=== PATIENT | female | born 1945 | race Caucasian/White ===

== ENCOUNTER 2020-05-03 07:47 | Outpatient (REF) | payer MEDICARE, OTHER, SELFPAY ==
[2020-05-03 11:51] LABS: Cholesterol 217 mg/dL; HDL Cholesterol 71 mg/dL; LDL Cholesterol Calculated 125 mg/dl; Triglycerides 107 mg/dL
== END 2020-05-03 07:48 | disposition home or self-care (01) ==
LOC: HO.HMGCLDS 07:47
PROVIDERS: PCP Nurse Practitioner Family; Visit Provider Nurse Practitioner Family
DX: E78.5 Hyperlipidemia, unspecified (principal)
CPT/HCPCS: 36415; 80061

== ENCOUNTER 2020-05-13 09:40 | Outpatient (REF) | payer MEDICARE, OTHER, SELFPAY ==
[2020-05-13 12:21] LABS: TSH reflex Free T4 0.12 mIU/mL (0.32-4.0)
[2020-05-13 12:57] LABS: Free T4 (Free Thyroxine) 1.66 ng/dL (0.71-1.85)
== END 2020-05-13 09:41 | disposition home or self-care (01) ==
LOC: HO.HMGCLDS 09:40
PROVIDERS: PCP Nurse Practitioner Family; Visit Provider Nurse Practitioner Family
DX: E03.9 Hypothyroidism, unspecified (principal)
CPT/HCPCS: 84439; 84443

== ENCOUNTER 2020-06-20 14:00 | Outpatient (REF) | payer MEDICARE, OTHER, SELFPAY ==
[2020-06-20 17:30] LABS: TSH reflex Free T4 0.18 mIU/mL (0.32-4.0)
[2020-06-20 18:12] LABS: Free T4 (Free Thyroxine) 1.39 ng/dL (0.71-1.85)
== END 2020-06-20 14:01 | disposition home or self-care (01) ==
LOC: HO.HMGCLDS 14:00
PROVIDERS: PCP Nurse Practitioner Family; Visit Provider Nurse Practitioner Family
DX: E03.9 Hypothyroidism, unspecified (principal)
CPT/HCPCS: 84439; 84443

== ENCOUNTER 2020-11-16 09:59 | Outpatient (REF) | payer MEDICARE, OTHER, SELFPAY ==
--- NOTE | ~2020-11-16 | US_ITS ---
EXAMINATION: US EXTRACRANIAL CAROTID DUPLEX, BILATERAL CLINICAL INFORMATION: This is a 75-year-old female with history of carotid stenosis. COMPARISON: None TECHNIQUE: Real-time ultrasound and Doppler techniques (integrating B-mode 2-D vascular images, Doppler spectral analysis and color-flow Doppler imaging) were utilized to interrogate the extracranial carotid arteries, the vertebral arteries and proximal subclavian arteries bilaterally. The degree of stenosis is determined by criteria similar to NASCET. FINDINGS: Right Side: 1. There is minimal atherosclerotic plaque seen in the bifurcation/proximal ICA region. 2. The common carotid artery PSV proximally is 90 cm/s and distally 53 cm/s. 3. The proximal internal carotid artery velocities are 64 cm/s systolic and 70 cm/s diastolic. 4. The proximal external carotid artery PSV is 76 cm/s. 5. The vertebral artery shows antegrade flow. 6. The subclavian artery waveforms are normal. Left Side: 1. There is normal atherosclerotic plaque seen in the bifurcation/proximal ICA region. 2. The common carotid artery PSV proximally is 92 cm/s and distally 52 cm/s. 3. The proximal internal carotid artery velocities are 56 cm/s systolic and 15 cm/s diastolic. 4. The proximal external carotid artery PSV is 73 cm/s. 5. The vertebral artery shows antegrade flow. 6. The subclavian artery waveforms are normal. US/US carotid duplex BI IMPRESSION: 1. RIGHT: Minimal, non-hemodynamically significant stenosis of the proximal right internal carotid artery corresponding to a 0-49% stenosis by velocity criteria. 2. LEFT: Minimal, non-hemodynamically significant stenosis of the proximal left internal carotid artery corresponding to a 0-49% stenosis by velocity criteria.
== END 2020-11-16 10:00 | disposition home or self-care (01) ==
LOC: HO.HMGCX 09:59
PROVIDERS: PCP Nurse Practitioner Family; Visit Provider Nurse Practitioner Family
DX: Z86.79 Personal history of other diseases of the circulatory system (principal)
CPT/HCPCS: 93880

== ENCOUNTER 2020-12-14 07:48 | Outpatient (REF) | payer MEDICARE, OTHER, SELFPAY ==
[2020-12-14 11:13] LABS: MANUAL DIFF FLAG NO
[2020-12-14 11:49] LABS: Basophils Percent Auto 0.9 % (0-2); Eosinophils Absolute Auto 0.2 X10*3/uL (0.0-0.4); Eosinophils Percent Auto 4.7 % (0-4); Hematocrit 40.1 % (37-47); Imm Gran Abs Auto 0.01 X10*3/uL (0.00-0.03); Imm Gran Pct Auto 0.2 % (0.0-0.4); Lymphocytes Absolute Auto 1.1 X10*3/uL (1.2-4.9); Lymphocytes Percent Auto 25.2 % (20-40); Mean Corpuscular HGB Conc 32.4 g/dl (31.0-35.0); Mean Corpuscular Hemoglobin 30.7 pg (27.0-33.0); Mean Corpuscular Volume 94.8 fL (80-98); Mean Platelet Volume 9.8 fL (9.4-12.3); Monocytes Absolute Auto 0.5 X10*3/uL (0.1-1.2); Monocytes Percent Auto 11.5 % (2-11); Neutrophils Absolute Auto 2.6 X10*3/uL (2.0-8.3); Neutrophils Percent Auto 57.5 % (45-73); Platelet Count 243 X10*3/uL (160-400); Red Blood Count 4.23 X10*6/uL (4.20-5.50); Red Cell Distribution Width 12.6 % (11.0-16.0); White Blood Count 4.5 X10*3/uL (4.8-10.8)
[2020-12-14 12:48] LABS: Alanine Aminotransferase 19 U/L (0-31); Alkaline Phosphatase 46 U/L (39-117); Anion Gap 11 (12-20); Aspartate Amino Transferase 21 U/L (5-31); Bilirubin Total 0.5 mg/dL (0.0-1.0); Blood Urea Nitrogen 11 mg/dL (9-16); Calcium 8.8 mg/dL (8.4-10.2); Carbon Dioxide 31 mmol/L (22-29); Chloride 105 mmol/L (96-108); Cholesterol 202 mg/dL; Estimated Glomerular Filt Rate > 60; Glucose Fasting 101 mg/dL (60-99); HDL Cholesterol 76 mg/dL; LDL Cholesterol Calculated 116 mg/dl; Potassium 4.1 mmol/L (3.3-5.1); Sodium 143 mmol/L (135-145); Total Protein 6.4 g/dL (6.5-8.0); Triglycerides 54 mg/dL
[2020-12-14 13:10] LABS: Folate 16.3 ng/mL (> or = 4.0); Vitamin B12 1417 pg/mL (200-900)
[2020-12-14 13:13] LABS: TSH reflex Free T4 1.16 uIU/mL (0.32-4.0); Vitamin D 25-OH Total 20.8 ng/mL (>30)
== END 2020-12-14 07:49 | disposition home or self-care (01) ==
LOC: HO.HMGCLDS 07:48
PROVIDERS: PCP Nurse Practitioner Family; Visit Provider Nurse Practitioner Family
DX: E53.8 Deficiency of other specified B group vitamins (principal); E03.9 Hypothyroidism, unspecified; I10 Essential (primary) hypertension; Z78.0 Asymptomatic menopausal state
CPT/HCPCS: 36415; 80053; 80061; 82306; 82607; 82746; 84443; 85025

== ENCOUNTER → 2021-03-08 09:46 | Outpatient (REF) | payer MEDICARE, OTHER, SELFPAY ==
--- NOTE | ~2021-03-08 | NM_ITS ---
EXERCISE MYOCARDIAL PERFUSION STUDY INDICATION: Family history of coronary disease, hypertension, hyperlipidemia, assess for ischemia TECHNIQUE: The patient was brought in for an exercise perfusion study on 03/08/2021. Patient performed exercise as per Felix protocol and was injected 25 mCi of sestamibi once target heart rate was achieved. Images were obtained using the SPECT gamma camera interlaced with the gating device. Images were obtained in supine position. Resting perfusion study was performed on 03/09/2021. Patient was administered 25 mCi of sestamibi intravenously at rest. Images were then obtained in supine position. Total DLP 79mGy-cm. Images were processed with the software and compared side to side in short axis, horizontal long axis and vertical long axis views. FINDINGS: Raw images were reviewed. The stress perfusion study showed no significant perfusion abnormality. Both uncorrected as well as CT attenuation corrected images were reviewed. The gated study shows normal LV systolic function with calculated LVEF of 64%. LV cavity is normal in size. The gated study shows normal wall thickening and contraction of segments. Resting study shows mildly diminished tracer uptake in the apical part of anterior wall but otherwise unremarkable. Gating at rest reveals normal wall motion with ejection fraction at 63%. The findings are consistent with no definite reversible or fixed perfusion defects. NM/NM cardiolite stress test IMPRESSION: 1. Myocardial perfusion imaging study shows normal myocardial perfusion. 2. Gated LVEF is 64% during stress and 63% during rest. 3. Transient ischemic dilatation not present. EKG component of the test reported separately.
--- NOTE | 2021-03-08 10:00 | CA_ITS ---
Acquisition Time: 2021-03-08 10:10:54 Total Exercise Time: 00:05:00 Test Indications: FAMILY HX CAD, HTN, HYPERLIPIDEM Medications: SEE CHART Protocol: ERENDIRA Max HR: 144 BPM 99% of Pred: 145 BPM Max BP: 178/068 mmHG Max Work Load: 7.0 METS Exercise stress test with exercise 5 min of Erendira protocol, without anginal symptoms, with isolated PACs, with normotensive response to exercise, without EKG changes meeting criteria for ischemia. Nuclear images pending. Test reviewed with Dr Jade. Referred By: Atul Sanz Overread By: PARVIZ FRENCH
== END ==
LOC: HO.CARD 09:46
PROVIDERS: Visit Provider Nurse Practitioner Family
DX: E78.5 Hyperlipidemia, unspecified (principal); I10 Essential (primary) hypertension; Z82.49 Family history of ischemic heart disease and other diseases of the circulatory system
CPT/HCPCS: 78452; 93017; A9500

== ENCOUNTER 2021-05-15 06:04 | Day surgery (SDC) | payer MEDICARE, OTHER, SELFPAY ==
[2021-05-03 13:46] LABS: MANUAL DIFF FLAG NO
[2021-05-03 13:48] LABS: Basophils Percent Auto 0.7 % (0-2); Eosinophils Absolute Auto 0.2 X10*3/uL (0.0-0.4); Eosinophils Percent Auto 2.8 % (0-4); Hematocrit 40.6 % (37-47); Hemoglobin 13.7 g/dl (12.0-16.0); Imm Gran Abs Auto 0.01 X10*3/uL (0.00-0.03); Imm Gran Pct Auto 0.2 % (0.0-0.4); Lymphocytes Absolute Auto 1.7 X10*3/uL (1.2-4.9); Lymphocytes Percent Auto 27.1 % (20-40); Mean Corpuscular HGB Conc 33.7 g/dl (31.0-35.0); Mean Corpuscular Hemoglobin 31.4 pg (27.0-33.0); Mean Corpuscular Volume 93.1 fL (80-98); Mean Platelet Volume 9.5 fL (9.4-12.3); Monocytes Absolute Auto 0.6 X10*3/uL (0.1-1.2); Monocytes Percent Auto 9.6 % (2-11); Neutrophils Absolute Auto 3.7 X10*3/uL (2.0-8.3); Neutrophils Percent Auto 59.6 % (45-73); Platelet Count 271 X10*3/uL (160-400); Red Blood Count 4.36 X10*6/uL (4.20-5.50); Red Cell Distribution Width 12.3 % (11.0-16.0); White Blood Count 6.1 X10*3/uL (4.8-10.8)
[2021-05-03 13:54] LABS: Prothrombin Time 11.6 SEC (9.9-13.0)
[2021-05-03 14:11] LABS: Alanine Aminotransferase 16 U/L (0-31); Albumin Level 4.3 g/dL (3.5-5.0); Alkaline Phosphatase 52 U/L (39-117); Anion Gap 12 (12-20); Aspartate Amino Transferase 19 U/L (5-31); Bilirubin Total 0.4 mg/dL (0.0-1.0); Blood Urea Nitrogen 12 mg/dL (9-16); Calcium 9.8 mg/dL (8.4-10.2); Carbon Dioxide 29 mmol/L (22-29); Chloride 104 mmol/L (96-108); Cholesterol 259 mg/dL; Estimated Glomerular Filt Rate > 60; Glucose Fasting 77 mg/dL (60-99); HDL Cholesterol 75 mg/dL; LDL Cholesterol Calculated 156 mg/dl; Potassium 4.6 mmol/L (3.3-5.1); Sodium 140 mmol/L (135-145); Total Protein 6.9 g/dL (6.5-8.0); Triglycerides 141 mg/dL
[2021-05-03 14:31] LABS: Thyroid Stimulating Hormone 1.46 uIU/mL (0.32-4.0)
[2021-05-10 09:10] VITALS: BMI 21.7
--- NOTE | 2021-05-10 10:49 | MHC.SHP ---
Pre-Procedural Eval Section A Date of Service: 05/10/21 The patient is an INPATIENT: No Changes since office visit: No Cold of Flu in the past 2 weeks, No New Medical Problems, No Changes in Medication and No Patient answered all questions The History & Physical has been completed within 30 days and I have reviewed it.: Yes Section B Chief Complaint: Cataract Left Eye Allergies: Allergies Allergy/AdvReac Type Severity Reaction Status Date / Time No Known Allergies Allergy Verified 05/03/21 12:18 Plan Diagnosis/Plan: Unchanged I have reviewed the history and physical and performed a pertinent physical examination on my patient. No changes have occurred unless specified.
--- NOTE | 2021-05-12 09:21 | P.CONAN_ITS ---
Documented by User: Farrah Ortiz NP 05/12/21 09:26 HPI - Anesthesia Eval Consult details Narrative: 75yo F for Left Cataract Multifocal with IOL Insertion PCP cleared No previous cataract PMFSH Active Problems Active Problems: All Active Problems (Updated 05/10/21 @ 09:16 by Carmen Matta RN) Postmenopausal (Acute) Hx of carotid stenosis (Acute) B12 deficiency (Acute) Family history of cardiac disorder (Acute) Pre-op evaluation (Acute) Dyslipidemia (Acute) HTN (hypertension) (Acute) Hypothyroid (Acute) Past Medical History Medical History (Updated 05/10/21 @ 09:16 by Carmen Matta RN) Anxiety Arthritis COVID-19 vaccine series completed DDD (degenerative disc disease) 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 Surgical History Surgical History (Updated 05/10/21 @ 09:16 by Carmen Matta RN) Breast cancer History of hammer toe correction Hx of blepharoplasty Social History [facility] Are you a primary residential caregiver to a significant other at home: No Do you presently have visiting nurse or other home services: No Alcohol intake: current Patient Tobacco Use Status: Former Tobacco user Quit Date: age 35 Tobacco use type: Cigarette Use of substances other than those prescribed or required for medical reasons: No Have you been hit, kicked, punched, or otherwise hurt by someone within the past year? If so, by whom?: No Advance Directives Information Provided: Yes (patient will bring copy of HCP DOS) Advance Directives on File: No Recently lost weight without trying: No Eating poorly because of decreased appetite: No Nutrition Risks: No Nutritional Risk Current occupational status: retired [employer] Allergies Allergy/AdvReac Type Severity Reaction Status Date / Time No Known Allergies Allergy Verified 05/03/21 12:18 Home Medications Medication Instructions Recorded Confirmed Last Taken Type alendronate 70 mg tablet 70 mg PO QWEEK 05/11/20 05/10/21 Unknown History multivitamin 1 tab PO DAILY 11/03/20 05/10/21 Unknown History buspirone 7.5 mg tablet 3.75 mg PO DAILY PRN tab 02/20/21 05/10/21 Unknown History biotin 5 mg capsule 5 mg PO .every other day cap 05/03/21 05/10/21 Unknown History Exam Exam Date and Time: May 12, [id number] Height,Weight and Vital Signs: Height 5 ft 2 in Weight 53.977 kg Pertinent Lab Results Pertinent Lab Results: Laboratory Tests 05/03/21 05/03/21 05/03/21 12:55 12:55 12:55 WBC 6.1 RBC 4.36 Hgb 13.7 Hct 40.6 MCV 93.1 MCH 31.4 MCHC 33.7 RDW 12.3 Plt Count 271 MPV 9.5 Immature Gran % (Auto) 0.2 Neut % (Auto) 59.6 Lymph % (Auto) 27.1 [place] % (Auto) 9.6 Eos % (Auto) 2.8 Baso % (Auto) 0.7 Lymph # (Auto) 1.7 [place] # (Auto) 0.6 Eos # (Auto) 0.2 Baso # (Auto) 0.0 Abs Immat Gran (auto) 0.01 Absolute Neuts (auto) 3.7 Absolute Nucleated RBC 0.000 Nucleated RBC % (auto) 0.0 PT 11.6 INR 1.0 Sodium 140 Potassium 4.6 Chloride 104 Carbon Dioxide 29 Anion Gap 12 BUN 12 Creatinine 0.80 Estim Creat Clear Calc TNP Estimated GFR > 60 Random Glucose TNP Fasting Glucose 77 Calcium 9.8 D Total Bilirubin 0.4 AST 19 ALT 16 Alkaline Phosphatase 52 Total Protein 6.9 Albumin 4.3 Triglycerides 141 Cholesterol 259 D LDL Cholesterol, Calc 156 HDL Cholesterol 75 TSH 1.46 05/03/21 12:55 WBC RBC Hgb Hct MCV MCH MCHC RDW Plt Count MPV Immature Gran % (Auto) Neut % (Auto) Lymph % (Auto) [place] % (Auto) Eos % (Auto) Baso % (Auto) Lymph # (Auto) [place] # (Auto) Eos # (Auto) Baso # (Auto) Abs Immat Gran (auto) Absolute Neuts (auto) Absolute Nucleated RBC Nucleated RBC % (auto) PT INR Sodium Potassium Chloride Carbon Dioxide Anion Gap BUN Creatinine Estim Creat Clear Calc Estimated GFR Random Glucose Fasting Glucose Calcium Total Bilirubin AST ALT Alkaline Phosphatase Total Protein Albumin Triglycerides Cholesterol LDL Cholesterol, Calc HDL Cholesterol TSH 1.50 Narrative Narrative: EKG 04/2021 NSR @72 NM cardiolite stress test 02/2021 IMPRESSION: ? 1.? Myocardial perfusion imaging study shows normal myocardial perfusion. 2.? Gated LVEF is 64% during stress and 63% during rest. 3. Transient ischemic dilatation not present. ? EKG component of the test reported separately. (Neg for ischemia) US carotid duplex BI 10/2020 IMPRESSION: 1. RIGHT: Minimal, non-hemodynamically significant stenosis of the proximal right internal carotid artery corresponding to a 0-49% stenosis by velocity criteria. ? 2. LEFT: Minimal, non-hemodynamically significant stenosis of the proximal left internal carotid artery corresponding to a 0-49% stenosis by velocity criteria. 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 Family history of problems with anesthesia: No Surgical History Surgical History (Updated 05/10/21 @ 09:16 by Carmen Matta RN) Breast cancer History of hammer toe correction Hx of blepharoplasty History of Problems with Anesthesia: No Social History Social History Housing: Condominium Are you a primary residential caregiver to a significant other at home: No Do you presently have visiting nurse or other home services: No Alcohol intake: current Patient Tobacco Use Status: Former Tobacco user Quit Date: age 35 Tobacco use type: Cigarette Use of substances other than those prescribed or required for medical reasons: No Have you been hit, kicked, punched, or otherwise hurt by someone within the past year? If so, by whom?: No Advance Directives Information Provided: Yes (patient will bring copy of HCP DOS) Advance Directives on File: No Recently lost weight without trying: No Eating poorly because of decreased appetite: No Nutrition Risks: No Nutritional Risk Current occupational status: retired [employer] Allergies Allergy/AdvReac Type Severity Reaction Status Date / Time No Known Allergies Allergy Verified 05/03/21 12:18 Home Medications Medication Instructions Recorded Confirmed Last Taken Type alendronate 70 mg tablet 70 mg PO QWEEK 05/11/20 05/10/21 Unknown History multivitamin 1 tab PO DAILY 11/03/20 05/10/21 Unknown History buspirone 7.5 mg tablet 3.75 mg PO DAILY PRN tab 02/20/21 05/10/21 Unknown History biotin 5 mg capsule 5 mg PO .every other day cap 05/03/21 05/10/21 Unknown History Exam Airway Mallampati Class: II TM Dist: >3cm Neck ROM: Full Loose/Missing/Broken Teeth: No (full mouth of implants) Heart: [id number] Lungs: cta b/l Assessment and Plan Assessment Anesthesia Assessment: Anesthesia Plan Discussed Final Anesthetic Review Family History of Problems with Anesthesia: No History of Problems with Anesthesia: No NPO: Yes ASA Class: III Final Preanesthetic Review: No Changes in Pt Med Stat, Meds/Allgs Chart Reviewed, Consent Obtained/Reviewed and Anes Risks/Benef Reviewed Patient Risk: Intermediate Procedure Risk: Low Assessment/Block/Sedation in SS: Assess/Block/Sedation-SS Anesthetic Plan Anesthetic Plan: MAC: and Agree w/ Assess. and Plan Disposition: Standard PACU
[2021-05-15 06:23] VITALS: BP 168/91; PULSE 80; RESP 18; TEMP 36.3; O2SAT 97
[2021-05-15] MEDS: Tetracaine HCl/PF 0.5% Oph Sol 4 ML DROPS 1 DROP EYE-LEFT (06:28)
[2021-05-15] MEDS: Tropicamide 1 % Ophth Sol 3 ML BTL 1 DROP EYE-LEFT ×3 (06:29→06:35)
[2021-05-15] MEDS: Phenylephrine HCL 2.5% Oph SoL 2 ML BOTTLE 1 DROP EYE-LEFT ×3 (06:31→06:37)
[2021-05-15] MEDS: Lactated Ringers 500 ML 50 ML IV (06:46)
--- NOTE | 2021-05-15 07:23 | HO.PNOPHT ---
Ophthalmology Procedure Procedure Date of Service: 05/15/21 Ophthalmology Viscoelastic: Healon Duet Dual Pack Pro Ophthalmology Lenses: TECNIS [id number] (23) Procedure Notes: PREOPERATIVE DIAGNOSIS: Decreased visual acuity left eye secondary to cataract POSTOPERATIVE DIAGNOSIS: Same PROCEDURE: Left cataract extraction with toric multifocal intraocular lens insertion axis 180 SURGEON: Simone Lu M.D. ANESTHESIA: Topical/MAC ESTIMATED BLOOD LOSS: None COMPLICATIONS: None After obtaining informed consent, the patient was brought to the operation room suite and placed in the supine position. After adequate sedation per anesthesia, topical drops of Tetracaine were given to the left eye. The eye was then prepped and draped in the usual sterile fashion. The operating room microscope was then positioned over the operative eye and a lid speculum placed. A paracentesis was created. Viscoelastic was then instilled into the anterior chamber. A three plane incision was then created temporally, utilizing a 2.85 mm keratome. Capsulotomy forceps were then utilized to create a circular tear capsulotomy. Hydrodissection and hydrodelineation were carried out until adequate mobilization of the nucleus occurred. Phacoemulsification was then utilized to remove the dense central nucleus followed by removal of the cortical material utilizing the automated aspiration irrigation unit. Viscoelastic was instilled into the posterior capsular bag followed by placement of a toric multifocal posterior chamber intraocular lens axis 180 without difficulty. The residual Viscoelastic was then removed utilizing the automated IA machine. The wound was check and found to be watertight. The patient tolerated the procedure well and the lid speculum was removed. Intracameral injection of Vigamox 0.1 mL followed by a subtenon injection of Kenalog-40 0.2 mL were administered. The patient will be seen in the a.m.
[2021-05-15 07:58] VITALS: BP 119/63; PULSE 62; RESP 16; TEMP 36.6; O2SAT 96
== END 2021-05-15 08:08 | disposition home or self-care (01) ==
PROVIDERS: PCP Nurse Practitioner Family; Visit Provider Ophthalmology
PROC: (CPT 66984; principal; 2021-05-15 07:30)
DX: H25.12 Age-related nuclear cataract, left eye (principal); H54.7 Unspecified visual loss; E03.9 Hypothyroidism, unspecified; I10 Essential (primary) hypertension; E78.5 Hyperlipidemia, unspecified; F41.1 Generalized anxiety disorder; Z85.3 Personal history of malignant neoplasm of breast; Z79.899 Other long term (current) drug therapy; Z87.891 Personal history of nicotine dependence
CPT/HCPCS: 66984; 36415; 80053; 80061; 84443; 85025; 85610; J2250; J2405; J3010; J3300; V2788

== ENCOUNTER 2021-08-23 08:14 | Outpatient (REF) | payer MEDICARE, OTHER, SELFPAY ==
[2021-08-23 12:01] LABS: Alanine Aminotransferase 17 U/L (0-31); Alkaline Phosphatase 42 U/L (39-117); Anion Gap 11 (12-20); Aspartate Amino Transferase 17 U/L (5-31); Bilirubin Total 0.7 mg/dL (0.0-1.0); Blood Urea Nitrogen 21 mg/dL (9-16); Calcium 9.7 mg/dL (8.4-10.2); Carbon Dioxide 30 mmol/L (22-29); Chloride 105 mmol/L (96-108); Cholesterol 265 mg/dL; Estimated Glomerular Filt Rate > 60; Glucose Fasting 103 mg/dL (60-99); HDL Cholesterol 73 mg/dL; LDL Cholesterol Calculated 166 mg/dl; Magnesium 2.2 mg/dL (1.6-2.6); Potassium 4.8 mmol/L (3.3-5.1); Sodium 141 mmol/L (135-145); Total Protein 6.7 g/dL (6.5-8.0); Triglycerides 132 mg/dL
[2021-08-23 12:10] LABS: TSH reflex Free T4 1.71 uIU/mL (0.32-4.0)
== END 2021-08-23 08:15 | disposition home or self-care (01) ==
LOC: HO.HMGCLDS 08:14
PROVIDERS: PCP Nurse Practitioner Family; Visit Provider Nurse Practitioner Family
DX: E78.5 Hyperlipidemia, unspecified (principal); I10 Essential (primary) hypertension
CPT/HCPCS: 36415; 80053; 80061; 83735; 84443

== ENCOUNTER 2021-10-24 07:57 | Outpatient (REF) | payer MEDICARE, OTHER, SELFPAY ==
[2021-10-24 11:57] LABS: Cholesterol 210 mg/dL; HDL Cholesterol 59 mg/dL; LDL Cholesterol Calculated 131 mg/dl; Triglycerides 100 mg/dL
== END 2021-10-24 07:58 | disposition home or self-care (01) ==
LOC: HO.HMGCLDS 07:57
PROVIDERS: PCP Nurse Practitioner Family; Visit Provider Nurse Practitioner Family
DX: E78.5 Hyperlipidemia, unspecified (principal)
CPT/HCPCS: 36415; 80061

== ENCOUNTER 2021-10-28 13:14 | Outpatient (REF) | payer MEDICARE, OTHER, SELFPAY ==
--- NOTE | ~2021-10-28 | XR_ITS ---
EXAMINATION: XR CHEST CLINICAL INFORMATION: Acute bronchitis COMPARISON: 10/22/2016 TECHNIQUE: 2 views of the chest were obtained. FINDINGS: Peribronchial thickening. Minor linear density consistent scarring right midlung zone. Emphysematous changes suspected. No significant abnormality is noted involving the heart, lungs, mediastinum, bony thorax or soft tissues. XR/XR chest 2V IMPRESSION: Findings of nonspecific bronchitis. No focal infiltrate.
== END 2021-10-28 13:15 | disposition home or self-care (01) ==
LOC: HO.HMGCX 13:14
PROVIDERS: Visit Provider Internal Medicine
DX: J20.9 Acute bronchitis, unspecified (principal)
CPT/HCPCS: 71046

== ENCOUNTER 2022-01-30 10:55 | Outpatient (REF) | payer MEDICARE, OTHER, SELFPAY ==
[2022-01-30 13:56] LABS: MANUAL DIFF FLAG NO
[2022-01-30 14:21] LABS: Basophils Percent Auto 0.8 % (0-2); Eosinophils Absolute Auto 0.2 X10*3/uL (0.0-0.4); Hematocrit 41.7 % (37.0-47.0); Hemoglobin 13.7 g/dl (12.0-16.0); Imm Gran Abs Auto 0.01 X10*3/uL (0.00-0.03); Imm Gran Pct Auto 0.2 % (0.0-0.4); Lymphocytes Absolute Auto 1.2 X10*3/uL (1.2-4.9); Lymphocytes Percent Auto 23.1 % (20-40); Mean Corpuscular HGB Conc 32.9 g/dl (31.0-35.0); Mean Corpuscular Hemoglobin 31.5 pg (27.0-33.0); Mean Corpuscular Volume 95.9 fL (80.0-98.0); Mean Platelet Volume 9.9 fL (9.4-12.3); Monocytes Absolute Auto 0.5 X10*3/uL (0.1-1.2); Monocytes Percent Auto 10.6 % (2-11); Neutrophils Absolute Auto 3.1 x10*3/uL (2.0-8.3); Neutrophils Percent Auto 62.3 % (45-73); Platelet Count 259 X10*3/uL (160-400); Red Blood Count 4.35 X10*6/uL (4.20-5.50); Red Cell Distribution Width 11.9 % (11.0-16.0)
[2022-01-30 14:47] LABS: Alanine Aminotransferase 18 U/L (0-31); Albumin Level 4.2 g/dL (3.5-5.0); Alkaline Phosphatase 47 U/L (39-117); Anion Gap 12 (12-20); Aspartate Amino Transferase 23 U/L (5-31); Bilirubin Total 0.5 mg/dL (0.0-1.0); Blood Urea Nitrogen 12 mg/dL (9-16); Calcium 9.5 mg/dL (8.4-10.2); Carbon Dioxide 29 mmol/L (22-29); Chloride 104 mmol/L (96-108); Estimated Glomerular Filt Rate > 60; Glucose Random 84 mg/dL (60-115); Potassium 4.8 mmol/L (3.3-5.1); Sodium 140 mmol/L (135-145); Total Protein 6.8 g/dL (6.5-8.0)
[2022-01-30 15:22] LABS: Folate 18.1 ng/mL (> or = 4.0); Vitamin B12 428 pg/mL (200-900)
== END 2022-01-30 10:56 | disposition home or self-care (01) ==
LOC: HO.HMGCLDS 10:55
PROVIDERS: PCP Nurse Practitioner Family; Visit Provider Nurse Practitioner Family
DX: K21.9 Gastro-esophageal reflux disease without esophagitis (principal); E53.8 Deficiency of other specified B group vitamins
CPT/HCPCS: 36415; 80053; 82607; 82746; 84443; 85025

== ENCOUNTER 2022-07-27 08:35 | Outpatient (REF) | payer MEDICARE, OTHER, SELFPAY ==
[2022-07-27 11:15] LABS: MANUAL DIFF FLAG NO
[2022-07-27 11:18] LABS: Appearance Urine Hazy; Color Urine Yellow; Glucose Urine UA Negative (Negative); Leukocyte Esterase Urine Small (1+) (Negative); Nitrite Urine Negative (Negative); Specific Gravity - Urine >= 1.030 (1.005-1.025); UMIC TRIGGER UACC YES; Urine Blood Negative (Negative); Urine Ketones Negative (Negative); Urine Protein Negative (Neg-Trace)
[2022-07-27 11:23] LABS: Basophils Percent Auto 0.7 % (0-2); Eosinophils Absolute Auto 0.3 X10*3/uL (0.0-0.4); Eosinophils Percent Auto 6.4 % (0-4); Hematocrit 40.4 % (37.0-47.0); Hemoglobin 12.9 g/dl (12.0-16.0); Imm Gran Abs Auto 0.01 X10*3/uL (0.00-0.03); Imm Gran Pct Auto 0.2 % (0.0-0.4); Lymphocytes Absolute Auto 1.2 X10*3/uL (1.2-4.9); Lymphocytes Percent Auto 28.1 % (20-40); Mean Corpuscular HGB Conc 31.9 g/dl (31.0-35.0); Mean Corpuscular Hemoglobin 30.1 pg (27.0-33.0); Mean Corpuscular Volume 94.2 fL (80.0-98.0); Mean Platelet Volume 9.9 fL (9.4-12.3); Monocytes Absolute Auto 0.5 X10*3/uL (0.1-1.2); Monocytes Percent Auto 12.9 % (2-11); Neutrophils Absolute Auto 2.2 x10*3/uL (2.0-8.3); Neutrophils Percent Auto 51.7 % (45-73); Platelet Count 226 X10*3/uL (160-400); Red Blood Count 4.29 X10*6/uL (4.20-5.50); Red Cell Distribution Width 12.3 % (11.0-16.0); White Blood Count 4.2 X10*3/uL (4.8-10.8)
[2022-07-27 11:33] LABS: RBC Urine 0-2 /HPF (0-2); UACC Culture Trigger YES; WBC Urine 0-5 /HPF (0-5)
[2022-07-27 11:34] LABS: Bacteria Urine Trace (None Seen); Hyaline Casts Urine 0-2 /LPF (0-2); Renal Epithelial Cells Urine Present
[2022-07-27 12:10] LABS: Alanine Aminotransferase 17 U/L (0-31); Albumin Level 3.9 g/dL (3.5-5.0); Alkaline Phosphatase 47 U/L (39-117); Anion Gap 10 (12-20); Aspartate Amino Transferase 21 U/L (5-31); Bilirubin Total 0.7 mg/dL (0.0-1.0); Blood Urea Nitrogen 16 mg/dL (9-16); Calcium 9.2 mg/dL (8.4-10.2); Carbon Dioxide 30 mmol/L (22-29); Chloride 106 mmol/L (96-108); Cholesterol 212 mg/dL; Estimated Glomerular Filt Rate > 60; Glucose Fasting 113 mg/dL (60-99); HDL Cholesterol 72 mg/dL; LDL Cholesterol Calculated 126 mg/dl; Potassium 4.3 mmol/L (3.3-5.1); Sodium 142 mmol/L (135-145); Total Protein 6.2 g/dL (6.5-8.0); Triglycerides 74 mg/dL
[2022-07-27 12:38] LABS: TSH reflex Free T4 1.15 uIU/mL (0.32-4.0)
== END 2022-07-27 08:36 | disposition home or self-care (01) ==
LOC: HO.HMGCLDS 08:35
PROVIDERS: PCP Nurse Practitioner Family; Visit Provider Nurse Practitioner Family
DX: E78.5 Hyperlipidemia, unspecified (principal); I10 Essential (primary) hypertension
CPT/HCPCS: 36415; 80053; 80061; 81001; 84443; 85025; 87086

== ENCOUNTER 2023-03-06 07:29 | Outpatient (REF) | payer MEDICARE, OTHER, SELFPAY ==
[2023-03-06 11:32] LABS: MANUAL DIFF FLAG NO
[2023-03-06 11:44] LABS: Basophils Percent Auto 0.8 % (0-2); Hematocrit 40.9 % (37.0-47.0); Hemoglobin 13.3 g/dl (12.0-16.0); Imm Gran Abs Auto 0.01 X10*3/uL (0.00-0.03); Imm Gran Pct Auto 0.3 % (0.0-0.4); Lymphocytes Absolute Auto 0.6 X10*3/uL (1.2-4.9); Lymphocytes Percent Auto 14.3 % (20-40); Mean Corpuscular HGB Conc 32.5 g/dl (31.0-35.0); Mean Corpuscular Hemoglobin 30.7 pg (27.0-33.0); Mean Corpuscular Volume 94.5 fL (80.0-98.0); Mean Platelet Volume 9.7 fL (9.4-12.3); Monocytes Absolute Auto 0.4 X10*3/uL (0.1-1.2); Monocytes Percent Auto 11.4 % (2-11); Neutrophils Absolute Auto 2.8 x10*3/uL (2.0-8.3); Neutrophils Percent Auto 72.2 % (45-73); Platelet Count 167 X10*3/uL (160-400); Red Blood Count 4.33 X10*6/uL (4.20-5.50); Red Cell Distribution Width 12.3 % (11.0-16.0); White Blood Count 3.9 X10*3/uL (4.8-10.8)
[2023-03-06 12:29] LABS: Alanine Aminotransferase 38 U/L (0-31); Albumin Level 3.8 g/dL (3.5-5.0); Alkaline Phosphatase 52 U/L (39-117); Anion Gap 14 (12-20); Aspartate Amino Transferase 45 U/L (5-31); Bilirubin Total 0.5 mg/dL (0.0-1.0); Blood Urea Nitrogen 13 mg/dL (9-16); Calcium 9.3 mg/dL (8.4-10.2); Carbon Dioxide 28 mmol/L (22-29); Chloride 106 mmol/L (96-108); Cholesterol 191 mg/dL; Estimated Glomerular Filt Rate > 60; Glucose Random 112 mg/dL (60-115); HDL Cholesterol 72 mg/dL; LDL Cholesterol Calculated 103 mg/dl; Lipase 29 U/L (8-78); Potassium 4.5 mmol/L (3.3-5.1); Sodium 143 mmol/L (135-145); TSH reflex Free T4 1.23 uIU/mL (0.32-4.0); Total Protein 6.4 g/dL (6.5-8.0); Triglycerides 80 mg/dL
[2023-03-08 14:42] LABS: Carbohydrate Antigen 19-9 14 U/mL (<34)
== END 2023-03-06 07:30 | disposition home or self-care (01) ==
LOC: HO.HMGCLDS 07:29
PROVIDERS: PCP Nurse Practitioner Family; Visit Provider Nurse Practitioner Family
DX: Z00.00 Encounter for general adult medical examination without abnormal findings (principal); R10.13 Epigastric pain; E78.5 Hyperlipidemia, unspecified; E03.9 Hypothyroidism, unspecified; Z80.0 Family history of malignant neoplasm of digestive organs
CPT/HCPCS: 36415; 80053; 80061; 83690; 84443; 85025; 86301

== ENCOUNTER 2023-03-13 07:45 | Outpatient (REF) | payer MEDICARE, OTHER, SELFPAY ==
[2023-03-13 13:25] LABS: Appearance Urine Clear; Color Urine Yellow; Glucose Urine UA Negative (Negative); Leukocyte Esterase Urine Negative (Negative); Nitrite Urine Negative (Negative); PH 6.5 (5.0-9.0); Specific Gravity - Urine <= 1.005 (1.005-1.025); Urine Blood Negative (Negative); Urine Ketones Negative (Negative); Urine Protein Negative (Neg-Trace)
== END 2023-03-13 07:46 | disposition home or self-care (01) ==
LOC: HO.HMGCLNP 07:45
PROVIDERS: PCP Nurse Practitioner Family; Visit Provider Nurse Practitioner Family
DX: Z00.00 Encounter for general adult medical examination without abnormal findings (principal); E78.5 Hyperlipidemia, unspecified
CPT/HCPCS: 81003

== ENCOUNTER 2023-03-13 10:20 | Outpatient (AMB) | payer MEDICARE, OTHER, SELFPAY ==
[2023-03-13 10:39] VITALS: BP 140/78; PULSE 63; O2SAT 100; BMI 22.2
--- NOTE | 2023-03-13 10:39 | MHC.PC.OV ---
Vital Signs 03/13/23 10:39 Height 5 ft 2 in Weight 121 lb 4 oz BMI 22.2 BP 140/78 H Blood Pressure Location Lt brachial Position Sitting Pulse 63 Pulse Source Pulse Oximeter Pulse Oximetry (%) 100 Oxygen Delivery Method Room Air Intake Visit Reasons: 4 month follow up W labs Allergies [place]-AWL-CuW Reductase Inhibitor Allergy (Mild, Verified 03/13/23 10:42) cannot tolerate Tobacco use date assessed: 03/13/23 Fall risk assessment: No Falls in past year Last assessed Fall Risk: 03/13/23 Dental Screening Dental Screen Date: 03/13/23 Did you have a dental visit in the last 12 months?: Yes Did you have a dental problem in the last 6 months where you did not have access to dental care?: No Was dental information given to patient?: Patient has dentist HPI 4 month follow up W labs HPI Details Dyslipidemia: On rosuvastatin 5mg three times a week. Will order labs. Denies fever, chills, chest pain, shortness of breath, and dizziness. Liver enzymes were elevated, US showed fatty liver. Pt follows up with GI. 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 Social History Housing: Condominium Are you a primary before and after school daycare worker to a significant other at home: No Do you presently have visiting nurse or other home services: No Alcohol intake: current Patient Tobacco Use Status: Former Tobacco user Quit Date: age 35 Tobacco use type: Cigarette e-Cigarette/Vaping Use: Never Used Second Hand Smoke Exposure: No Advance Directives Date on File: 05/15/21 Current occupational status: retired Cognitive needs: No Hearing needs: No Vision needs: No Questionnaire Thrive Questionnaire Date Thrive assessed: 05/31/22 BAIRON-7 AMB Questionnaire BAIRON-7 Date BAIRON - 7 assessed: 05/31/22 Source: Developed by Drs. Joselito Kline, Gemini Sapp, Alexander Gould and colleagues, with an educational william from [employer]. Review of Systems Const Reports as per HPI Physical exam (Primary Care) Vital Signs: Last Vital Signs Pulse 63 03/13/23 10:39 BP 140/78 H 03/13/23 10:39 Pulse Ox 100 03/13/23 10:39 Oxygen Delivery Method Room Air 03/13/23 10:39 BMI result Body Mass Index 22.2 Tobacco/Smoking Status: Tobacco use Status Tobacco use date assessed 03/13/23 03/13/23 10:47 Patient Tobacco Use Status Former Tobacco user 03/13/23 10:42 Tobacco use type Cigarette 03/13/23 10:42 e-Cigarette/Vaping Use Never Used 03/13/23 10:42 Thrive Assessment: Date of Thrive Assessment Date Thrive assessed 05/31/22 03/13/23 10:42 Const General: cooperative Orientation/consciousness: patient oriented x3 Resp Effort & Inspection: normal respiratory effort Auscultation: clear to auscultation bilaterally Cardio Rate: regular rate Rhythm: regular rhythm Heart sounds: S1 normal heart sound present and S2 normal heart sound present GI Palpation (GI): Soft to palpation, nontender and no guarding Neuro General: patient oriented x3 Psych Appearance: grossly normal Mental Status: mental status grossly normal Speech and movement: Normal speech and movement present Affect: normal affect Attitude: cooperative Thought process: Normal thought process present Thought content: Normal thought content present Insight: Good insight present (Psych) Judgement: Good judgement present (Psych) Assessment and Plan Assessment & Plan (1) Dyslipidemia: Code(s): E78.5 - Hyperlipidemia, unspecified Plan: Labs ordered (2) Elevated liver enzymes: Code(s): R74.8 - Abnormal levels of other serum enzymes (3) B12 deficiency: Code(s): E53.8 - Deficiency of other specified B group vitamins Plan The patient agreed to the use of a medical technicians for this encounter. Scribed for MELISSA Clark- by Denisse Smallwood, medical technicians, on 03/13/2023 at 10:50 EST. Orders: Orders Lipid Panel Today E78.5 - Hyperlipidemia, unspecified Vitamin B12 and Folate Today E53.8 - Deficiency of other specified B group vitamins Coding Level of Care Code Est Pt Level 3 (57611) Diagnoses Dyslipidemia E78.5 Elevated liver enzymes R74.8 B12 deficiency E53.8
== END 2023-03-13 11:15 | disposition home or self-care (01) ==
PROVIDERS: Visit Provider Nurse Practitioner Family
DX: E78.5 Hyperlipidemia, unspecified (principal); R74.8 Abnormal levels of other serum enzymes; E53.8 Deficiency of other specified B group vitamins
CPT/HCPCS: 99213

== ENCOUNTER 2023-08-20 12:04 | Outpatient (REF) | payer MEDICARE, OTHER, SELFPAY ==
[2023-08-20 13:36] LABS: MANUAL DIFF FLAG NO
[2023-08-20 13:47] LABS: Basophils Percent Auto 0.9 % (0-2); Eosinophils Absolute Auto 0.2 X10*3/uL (0.0-0.4); Eosinophils Percent Auto 3.9 % (0-4); Hematocrit 39.2 % (37.0-47.0); Hemoglobin 12.9 g/dl (12.0-16.0); Imm Gran Abs Auto 0.01 X10*3/uL (0.00-0.03); Imm Gran Pct Auto 0.2 % (0.0-0.4); Lymphocytes Absolute Auto 1.1 X10*3/uL (1.2-4.9); Lymphocytes Percent Auto 24.5 % (20-40); Mean Corpuscular HGB Conc 32.9 g/dl (31.0-35.0); Mean Corpuscular Hemoglobin 30.6 pg (27.0-33.0); Mean Corpuscular Volume 92.9 fL (80.0-98.0); Mean Platelet Volume 9.6 fL (9.4-12.3); Monocytes Absolute Auto 0.5 X10*3/uL (0.1-1.2); Monocytes Percent Auto 10.9 % (2-11); Neutrophils Absolute Auto 2.6 x10*3/uL (2.0-8.3); Neutrophils Percent Auto 59.6 % (45-73); Platelet Count 227 X10*3/uL (160-400); Red Blood Count 4.22 X10*6/uL (4.20-5.50); Red Cell Distribution Width 12.5 % (11.0-16.0); White Blood Count 4.4 X10*3/uL (4.8-10.8)
[2023-08-20 15:07] LABS: Alanine Aminotransferase 17 U/L (0-31); Albumin Level 3.9 g/dL (3.5-5.0); Alkaline Phosphatase 44 U/L (39-117); Aspartate Amino Transferase 20 U/L (5-31); Bilirubin Direct 0.2 mg/dL (0.0-0.5); Bilirubin Total 0.6 mg/dL (0.0-1.0); Total Protein 6.4 g/dL (6.5-8.0)
[2023-08-21 09:12] LABS: HBS Num1 0.26 mIU/mL (0-7.99); HBc Num1 0.06 S/CO (0.00-0.79); HBsAGNum1 0.31 S/CO (0.00-0.99); Hepatitis A Antibody IgM 0.13 Index (0-0.79); Hepatitis B Core Antibody Nonreactive (Nonreactive); Hepatitis B Surface Antigen Negative (Negative); ~HepC Num1 0.06 S/CO (0.00-0.79); ~Hepatitis A Antibody IgM Nonreactive (Nonreactive); ~Hepatitis B Surface Antibody NONREACTIVE (Nonreactive); ~Hepatitis C Antibody Nonreactive (Nonreactive)
== END 2023-08-20 12:05 | disposition home or self-care (01) ==
LOC: HO.HMGCLDS 12:04
PROVIDERS: PCP Nurse Practitioner Family; Visit Provider Nurse Practitioner Family
DX: R74.8 Abnormal levels of other serum enzymes (principal); D72.819 Decreased white blood cell count, unspecified
CPT/HCPCS: 36415; 80076; 85025; 86704; 86706; 86709; 86803; 87340

== ENCOUNTER 2023-09-03 15:27 | Outpatient (AMB) | payer MEDICARE, OTHER, SELFPAY ==
[2023-09-03 15:45] VITALS: BP 122/68; PULSE 83; O2SAT 97; BMI 22.1
--- NOTE | 2023-09-03 15:45 | MHC.PC.OV ---
Vital Signs 09/03/23 15:45 Height 5 ft 2 in Weight 121 lb BMI 22.1 BP 122/68 Blood Pressure Location Rt brachial Position Sitting Pulse 83 Pulse Source Pulse Oximeter Pulse Oximetry (%) 97 Oxygen Delivery Method Room Air Intake Visit Reasons: Discuss GI issues Intake Note: Pt is here to Discuss GI Issues Allergies Prlmped-BAD-FtH Reductase Inhibitor Allergy (Mild, Verified 09/03/23 15:48) cannot tolerate Medication List - Last Reconciled 09/03/23 by MELISSA Holland-TAYO buspirone 7.5 mg PO DAILY celecoxib (Celebrex) 200 mg PO DAILY PRN esomeprazole magnesium 20 mg PO DAILY levothyroxine 88 mcg PO QAM lisinopril 20 mg PO DAILY 90 days rosuvastatin (Crestor) 5 mg PO three times a week; Tobacco use date assessed: 09/03/23 Fall risk assessment: No Falls in past year Last assessed Fall Risk: 09/03/23 Dental Screening Dental Screen Date: 09/03/23 Did you have a dental visit in the last 12 months?: Yes Did you have a dental problem in the last 6 months where you did not have access to dental care?: No Was dental information given to patient?: Patient has dentist HPI Discuss GI issues HPI Details Pt saw GI due to abdominal discomfort and constipation. Physical exam was negative. It was recommended that pt continue daily esomeprazole. She had a recent CT of the abdomen/pelvis which was negative. It did show ? of a pulmonary nodule vs scarring in the right chest. Repeat chest CT has been ordered. Denies chest pain, shortness of breath, and dizziness. 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 Social History Housing: Condominium Are you a primary healthcare account manager to a significant other at home: No Do you presently have visiting nurse or other home services: No Alcohol intake: current Patient Tobacco Use Status: Former Tobacco user Quit Date: age 35 Tobacco use type: Cigarette e-Cigarette/Vaping Use: Never Used Second Hand Smoke Exposure: No Advance Directives Date on File: 05/15/21 Current occupational status: retired Cognitive needs: No Hearing needs: No Vision needs: No Questionnaire Thrive Questionnaire Date Thrive assessed: 05/31/22 BAIRON-7 AMB Questionnaire BAIRON-7 Date BAIRON - 7 assessed: 05/31/22 Source: Developed by Drs. Joselito Kline, Gemini Sapp, Alexander Gould and colleagues, with an educational william from [employer]. Review of Systems Const Reports as per HPI Physical exam (Primary Care) Vital Signs: Last Vital Signs Pulse 83 09/03/23 15:45 BP 122/68 09/03/23 15:45 Pulse Ox 97 09/03/23 15:45 Oxygen Delivery Method Room Air 09/03/23 15:45 BMI result Body Mass Index 22.1 Tobacco/Smoking Status: Tobacco use Status Tobacco use date assessed 09/03/23 09/03/23 15:52 Patient Tobacco Use Status Former Tobacco user 09/03/23 15:48 Tobacco use type Cigarette 09/03/23 15:48 e-Cigarette/Vaping Use Never Used 09/03/23 15:48 Thrive Assessment: Date of Thrive Assessment Date Thrive assessed 05/31/22 09/03/23 15:48 Const General: cooperative Orientation/consciousness: patient oriented x3 Resp Effort & Inspection: normal respiratory effort Auscultation: clear to auscultation bilaterally Cardio Rate: regular rate Rhythm: regular rhythm Heart sounds: S1 normal heart sound present and S2 normal heart sound present GI Other: no abdominal pain with palpation Neuro General: patient oriented x3 Psych Appearance: grossly normal Mental Status: mental status grossly normal Speech and movement: Normal speech and movement present Affect: normal affect Attitude: cooperative Thought process: Normal thought process present Thought content: Normal thought content present Insight: Good insight present (Psych) Judgement: Good judgement present (Psych) Assessment and Plan Assessment & Plan (1) Epigastric discomfort: Code(s): R10.13 - Epigastric pain (2) Abnormal CT of the abdomen: Code(s): R93.5 - Abnormal findings on diagnostic imaging of other abdominal regions, including retroperitoneum Plan: CT of chest ordered Plan The patient agreed to the use of a medical file clerk for this encounter. Scribed for LINDA Clark by Denisse Smallwood medical file clerk, on 09/03/2023 at 16:30 EST. Coding Level of Care Code Est Pt Level 3 (71820) Diagnoses Epigastric discomfort R10.[address] of the abdomen R93.5
== END 2023-09-03 16:50 | disposition home or self-care (01) ==
PROVIDERS: PCP Nurse Practitioner Family; Visit Provider Nurse Practitioner Family
DX: R10.13 Epigastric pain (principal); R93.5 Abnormal findings on diagnostic imaging of other abdominal regions, including retroperitoneum
CPT/HCPCS: 99213

== ENCOUNTER 2023-10-18 13:15 | Outpatient (REF) | payer MEDICARE, OTHER, SELFPAY ==
--- NOTE | ~2023-10-18 | CT_ITS ---
EXAMINATION: CT CHEST WITHOUT CONTRAST CLINICAL INFORMATION: Solitary pulmonary nodule COMPARISON: None available. TECHNIQUE: Multidetector volumetric CT imaging of the chest was done. Axial MIP volume rendering provided. Sagittal and coronal reformatted images were obtained. This CT examination was performed using dose optimization techniques as appropriate, variously including the following: *Automated exposure control *Adjustment of mA and/or kV according to patient size (this includes techniques or standardized protocols for targeted exams where dose is matched to indication/reason for exam; i.e. extremities or head) *Use of iterative reconstruction technique DLP: 114 mGy-cm FINDINGS: CENTRIFUGAL SPINNER: Elevated right hemidiaphragm. Clear lungs. Aortic calcifications. LUNGS: Mild biapical pleural thickening. Trachea and bronchi are patent. Scattered atelectasis. Left 5 mm granuloma. NODULES: RUL: 6 mm, 5:151 RML: 7 mm, 5:318, 7 mm, 5:308 versus measuring 1.4 cm in aggregate on coronal 6:33 RLL: 1.2 x 0.5 cm pleural-based opacity with possible cavitation, 5:177. YOVANNY: 5 mm, 5:133, 4 mm, 5:139 MEDIASTINUM: Unremarkable thyroid. 1 cm pretracheal lymph node. Examination of the susie limited without IV contrast. Nonenlarged heart. Nonaneurysmal aorta with atherosclerotic calcifications. Nonenlarged pulmonary arteries. Small thick-walled hiatal hernia. CORONARY ARTERY CALCIFICATION: Moderately severe. PLEURA: There is no pleural effusion. No pleural mass or thickening. AXILLA: No lymphadenopathy. UPPER ABDOMEN: Unremarkable. OSSEOUS STRUCTURES: No suspicious osseous lesions. CT/CT chest wo IV con IMPRESSION: Multiple pulmonary nodules, largest potentially bilobed measuring 1.4 cm. Prominent pretracheal lymph node. 3 month follow-up LDCT recommended. PET/CT should also be considered. Fleischner guidelines were followed.
== END 2023-10-18 13:16 | disposition home or self-care (01) ==
LOC: HO.CT 13:15
PROVIDERS: PCP Nurse Practitioner Family; Visit Provider Nurse Practitioner Family
DX: R91.1 Solitary pulmonary nodule (principal)
CPT/HCPCS: 71250

== ENCOUNTER 2023-11-14 11:06 | Outpatient (AMB) | payer MEDICARE, OTHER, SELFPAY ==
[2023-11-14 11:11] VITALS: BP 118/72; PULSE 67; O2SAT 97; BMI 22.3
--- NOTE | 2023-11-14 11:11 | A.OFFPC_ITS ---
Vital Signs 11/14/23 11:11 Height 5 ft 2 in Weight 122 lb BMI 22.3 BP 118/72 Blood Pressure Location Lt brachial Position Sitting Pulse 67 Pulse Source Pulse Oximeter Pulse Oximetry (%) 97 Oxygen Delivery Method Room Air Intake Visit Reasons: Annual PE Intake Note: Patient here for physical exam, pt would like to talk about chest xray and some other things. Allergies Sjsmutd-ZUL-SbI Reductase Inhibitor Allergy (Mild, Verified 11/14/23 11:34) cannot tolerate Medication List - Last Reconciled 11/14/23 by MELISSA Holland-TAYO buspirone 7.5 mg PO DAILY celecoxib (Celebrex) 200 mg PO DAILY PRN esomeprazole magnesium 20 mg PO DAILY levothyroxine 88 mcg PO QAM lisinopril 20 mg PO DAILY 90 days rosuvastatin (Crestor) 5 mg PO three times a week; Tobacco use date assessed: 09/03/23 Fall risk assessment: No Falls in past year Last assessed Fall Risk: 11/14/23 Dental Screening Dental Screen Date: 09/03/23 HPI Annual PE HPI Details Pt is here for a PE. Will order labs. Colon screen is up to date, sees GI. Mammo is up to date. Pt is following up with thoracic due to lung nodules. Pt gets her bone density through her arthritis provider. Pt reports some ongoing RUQ pain. CT was negative. Pt follows up with GI. 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 Social History Housing: Condominium Are you a primary respiratory care instructor to a significant other at home: No Do you presently have visiting nurse or other home services: No Alcohol intake: current Patient Tobacco Use Status: Former Tobacco user Quit Date: age 35 Tobacco use type: Cigarette e-Cigarette/Vaping Use: Never Used Second Hand Smoke Exposure: No Advance Directives Date on File: 05/15/21 Current occupational status: retired Cognitive needs: No Hearing needs: No Vision needs: No Questionnaire Thrive Questionnaire Date Thrive assessed: 05/31/22 BAIRON-7 AMB Questionnaire BAIRON-7 Date BAIRON - 7 assessed: 05/31/22 Source: Developed by Drs. Joselito Kline, Gmeini Sapp, Alexander Gould and colleagues, with an educational william from [employer]. Review of Systems Const Denies chills and Denies fever(s) Eyes Denies blurry vision ENT Denies vertigo, Denies dizziness and Denies sore throat Card Denies chest pain at rest, Denies chest pain with activity, Denies diaphoresis, Denies dyspnea and Denies dyspnea on exertion Resp Denies cough, Denies dyspnea, Denies dyspnea on exertion and Denies wheezing GI Denies abdominal pain, Denies melena, Denies hematochezia, Denies constipation, Denies diarrhea and Denies loose stools Denies hematuria Musc Denies numbness and Denies tingling Skin/Breast Denies lesions Neuro Denies vertigo, Denies dizziness, Denies numbness and Denies tingling Psych Denies anxiety, Denies depression, Denies homicidal ideation, Denies suicidal ideation and Denies other (substance abuse) Aller/Immun Denies wheezing Physical exam (Primary Care) Vital Signs: Last Vital Signs Pulse 67 11/14/23 11:11 BP 118/72 11/14/23 11:11 Pulse Ox 97 11/14/23 11:11 Oxygen Delivery Method Room Air 11/14/23 11:11 BMI result Body Mass Index 22.3 Tobacco/Smoking Status: Tobacco use Status Tobacco use date assessed 09/03/23 11/14/23 11:16 Patient Tobacco Use Status Former Tobacco user 11/14/23 11:16 Tobacco use type Cigarette 11/14/23 11:16 e-Cigarette/Vaping Use Never Used 11/14/23 11:16 Thrive Assessment: Date of Thrive Assessment Date Thrive assessed 05/31/22 11/14/23 11:16 Const General: cooperative Nutritional Appearance: well nourished Orientation/consciousness: patient oriented x3 HENMT Head: Yes normal to inspection, Yes normocephalic and Yes atraumatic Ears: TM's normal bilaterally Eyes General: appearance normal, both eyes and all related structures Alignment and Position: alignment normal and position normal Neck Neck: Yes normal visual inspection and Yes no lymphadenopathy Thyroid: Thyroid normal Resp Effort & Inspection: normal respiratory effort Auscultation: clear to auscultation bilaterally Cardio Rate: regular rate Rhythm: regular rhythm Heart sounds: S1 normal heart sound present, S2 normal heart sound present and no murmurs GI Palpation (GI): Soft to palpation and nontender Auscultation: normal bowel sounds Skin Rashes: no rashes Neuro General: patient oriented x3, moves all extremities, no focal motor deficits and deep tendon reflexes 2+ bilaterally Romberg Test: Negative Psych Appearance: grossly normal Mental Status: mental status grossly normal Speech and movement: Normal speech and movement present Affect: normal affect Attitude: cooperative Thought process: Normal thought process present Thought content: Normal thought content present Insight: Good insight present (Psych) Judgement: Good judgement present (Psych) Assessment and Plan Assessment & Plan (1) Physical exam: Code(s): Z00.00 - Encounter for general adult medical examination without abnormal findings (2) B12 deficiency: Code(s): E53.8 - Deficiency of other specified B group vitamins Plan: w (3) Vitamin D deficiency: Code(s): E55.9 - Vitamin D deficiency, unspecified Plan: will check vit d, bone densities through arthritis MD. Orders: Orders Comprehensive [place]. Panel Fast Today Z00.00 - Encounter for general adult medical examination without abnormal findings TSH reflex Free T4 Today Z00.00 - Encounter for general adult medical examination without abnormal findings Lipid Panel Today Z00.00 - Encounter for general adult medical examination without abnormal findings Vitamin B12 and Folate Today E53.8 - Deficiency of other specified B group vitamins Vitamin D 25-OH Total Today E55.9 - Vitamin D deficiency, unspecified Complete Blood Count Auto Diff Today Z00.00 - Encounter for general adult medical examination without abnormal findings UA CC w/rflx Micro + Cult Today Z00.00 - Encounter for general adult medical examination without abnormal findings Coding Level of Care Code Est Pt Prev Care >65y(64829) Diagnoses Physical exam Z00.00 B12 deficiency E53.8 Vitamin D deficiency E55.9
== END 2023-11-14 11:57 | disposition home or self-care (01) ==
PROVIDERS: PCP Nurse Practitioner Family; Visit Provider Nurse Practitioner Family
DX: Z00.00 Encounter for general adult medical examination without abnormal findings (principal); E53.8 Deficiency of other specified B group vitamins; E55.9 Vitamin D deficiency, unspecified
CPT/HCPCS: 99397

== ENCOUNTER 2024-05-13 09:17 | Outpatient (AMB) | payer MEDICARE, OTHER, SELFPAY ==
[2024-05-13 09:19] VITALS: BP 124/80; PULSE 76; O2SAT 95; BMI 21.9
--- NOTE | 2024-05-13 09:19 | MHC.PC.OV ---
Vital Signs 05/13/24 09:19 Height 5 ft 2 in Weight 120 lb BMI 21.9 BP 124/80 Blood Pressure Location Rt brachial Position Sitting Pulse 76 Pulse Source Pulse Oximeter Pulse Oximetry (%) 95 Oxygen Delivery Method Room Air Intake Visit Reasons: 6 Month F/U Intake Note: pt is here for 6 month follow up Retail Grocer Required: No Accompanied by: Self / Same As Patient Allergies Clkdmba-RKE-HhW Reductase Inhibitor Allergy (Mild, Verified 05/13/24 09:35) cannot tolerate Medication List - Last Reconciled 05/13/24 by Atul Sanz, [facility] buspirone 7.5 mg PO DAILY celecoxib (Celebrex) 200 mg PO DAILY PRN esomeprazole magnesium 20 mg PO DAILY levothyroxine 88 mcg PO QAM lisinopril 20 mg PO DAILY 90 days rosuvastatin 5 mg PO three times a week; Tobacco use date assessed: 09/03/23 Fall risk assessment: No Falls in past year Last assessed Fall Risk: 05/13/24 Dental Screening Dental Screen Date: 09/03/23 HPI 6 Month F/U HPI Details HTN: Blood pressure is stable, managed with lisinopril 20mg. Denies chest pain, shortness of breath, headache, dizziness, and blurred vision. Pt has a hx of gallbladder polyp. Will order a repeat US. Pt has a hx of pulmonary nodules, she is seeing thoracic for this. Pt has a repeat CT scheduled. Bone density through arthritis center, monitored by them [facility] Medical History Hx of radiation therapy COVID-19 vaccine series completed Arthritis Osteoarthritis DDD (degenerative disc disease) Dyskinesia of gallbladder GERD (gastroesophageal reflux disease) Ductal carcinoma in situ (DCIS) of left breast Dyslipidemia Anxiety Osteopenia HTN (hypertension) Hypothyroid Surgical History Hx of left cataract extraction History of esophagogastroduodenoscopy (EGD) Hx of blepharoplasty Breast cancer History of hammer toe correction Family History Father HTN (hypertension) Mother No problems noted. Social History Housing: Condominium Are you a primary director of critical care to a significant other at home: No Do you presently have visiting nurse or other home services: No Alcohol intake: current Patient Tobacco Use Status: Former Tobacco user Tobacco use type: Cigarette e-Cigarette/Vaping Use: Never Used Second Hand Smoke Exposure: No Advance Directives Date on File: 05/15/21 Current occupational status: retired Cognitive needs: No Hearing needs: No Vision needs: No Questionnaire PHQ-9 Over the last 2 weeks, how often have you been bothered by any of the following problems? 1. Little interest or pleasure in doing things: not at all 2. Feeling down, depressed, or hopeless: not at all 3. Trouble falling or staying asleep, or sleeping too much: not at all 4. Feeling tired or having little energy: not at all 5. Poor appetite or overeating: not at all 6. Feeling bad about yourself - or that you are a failure or have let yourself or your family down: not at all 7. Trouble concentrating on things, such as reading the newspaper or watching television: not at all 8. Moving or speaking so slowly that other people could have noticed. Or the opposite - being so fidgety or restless that you have been moving around a lot more than usual: not at all 9. Thoughts that you would be better off or of hurting yourself in some way: not at all Total score: 0 Depression Screening Interpretation: Negative Depression Screening Done: Yes 55969 - PHQ-9 Billing: Yes Source: Developed by Drs. Joselito Kline, Gemini Sapp, Alexander Gould and colleagues, with an educational william from [employer]. Thrive Questionnaire Date Thrive assessed: 05/13/24 I am a: Patient What is your living situation today?: I have a steady place to live Within the past 12 months, did the food you bought not last and you didn't have the money to get more?: Never true Within the past 12 months, did you worry whether your food would run out before you got money to buy more?: Never true Do you have trouble paying for medicines?: No Do you have trouble getting transportation to medical appointments?: No Do you have trouble paying your heating and electricity bill?: No Do you have trouble taking care of your child, family member or friend?: No Do you have trouble with day-to-day activities such as bathing, preparing meals, shopping, managing finances, etc.?: No Are you currently unemployed and looking for a job?: No Are you interested in more education?: No Please select the resources that you would like help with: None Currently or been in a relationship where the following occur: No concerns reported THRIVE Score: 0 AUDIT C Alcohol Use Questionnaire (AUDIT-C) 1. How often do you have a drink containing alcohol?: 2-3 times a week 2. How many drinks containing alcohol do you have on a typical day when you are drinking?: 1 or 2 3. How often do you have six or more drinks on one occasion?: Never Total Score: 3 Score Reviewed/Action Taken: Yes BAIRON-7 AMB Questionnaire BAIRON-7 Date BAIRON - 7 assessed: 05/13/24 Feeling nervous, anxious, or on edge: 0 = Not at all Not being able to stop or control worryin = Not at all Worrying too much about different things: 0 = Not at all Trouble relaxin = Not at all Being so restless that it is hard to sit still: 0 = Not at all Becoming easily annoyed or irritable: 0 = Not at all Feeling afraid as if something awful might happen: 0 = Not at all Total BAIRON-7 score (0-4 normal; 5-9 mild; 10-14 moderate; 15-21 severe): 0 Source: Developed by Drs. Joselito Kline, Gemini Sapp, Alexander Gould and colleagues, with an educational william from [employer]. BAIRON-7 Assessment Billing BAIRON-7 Assessment Tool: BAIRON-7 Assessment 87681 Review of Systems Const Reports as per HPI Physical exam (Primary Care) Vital Signs: Last Vital Signs Pulse 76 05/13/24 09:19 BP 124/80 05/13/24 09:19 Pulse Ox 95 05/13/24 09:19 Oxygen Delivery Method Room Air 05/13/24 09:19 BMI result Body Mass Index 21.9 Tobacco/Smoking Status: Tobacco use Status Tobacco use date assessed 09/03/23 05/13/24 09:25 Patient Tobacco Use Status Former Tobacco user 05/13/24 09:25 Tobacco use type Cigarette 05/13/24 09:25 e-Cigarette/Vaping Use Never Used 05/13/24 09:25 PHQ-9: PHQ-9 Score PHQ-9: Total score 0 05/13/24 09:38 Depression Screening Interpretation: Negative Thrive Assessment: Date of Thrive Assessment Date Thrive assessed 05/13/24 05/13/24 09:25 Currently or been in a relationship where the following occur: No concerns reported Const General: cooperative Orientation/consciousness: patient oriented x3 Resp Effort & Inspection: normal respiratory effort Auscultation: clear to auscultation bilaterally Cardio Rate: regular rate Rhythm: regular rhythm Heart sounds: S1 normal heart sound present and S2 normal heart sound present GI Other: no pain with palpation of RUQ Neuro General: patient oriented x3 Extrem Right lower extremity: no edema Left lower extremity: no edema Psych Appearance: grossly normal Mental Status: mental status grossly normal Speech and movement: Normal speech and movement present Affect: normal affect Attitude: cooperative Thought process: Normal thought process present Thought content: Normal thought content present Insight: Good insight present (Psych) Judgement: Good judgement present (Psych) Immunizations pneumoc 20-gamal conj-dip cr(PF) 0.5 mL IM syringe Performing Provider: LINDA Holland Performing Location: [facility] Administered by: Galdino Lopez CMA on 05/13/24 09:56 Dose Route Admin Location Dispensed Lot Number Expiration Date [employer] 0.5 mL IM Right Deltoid 0.5 mL [id number] 07/17/25 4306-8369-08 [employer]ETH[employer]ZER VIS Given Date VIS Provided VIS Publication Date 05/13/24 Single Vaccine 21 Eligibility Eligibility Date Funding Source Not [facility] Eligible 05/13/24 Private Coding Level of Care Code Est Pt Level 3 (44681) Diagnoses Gallbladder polyp K82.4 HTN (hypertension) I10 Multiple pulmonary nodules R91.8 Additional Codes BAIRON-7 Assessment Billing - BAIRON-7 Assessment Tool: BAIRON-7 Assessment 50072 ([id number]) Assessment & Plan Assessment & Plan (1) Gallbladder polyp: Code(s): K82.4 - Cholesterolosis of gallbladder Category: Medical Plan: repeat abd US (2) HTN (hypertension): Code(s): I10 - Essential (primary) hypertension Category: Medical Plan: stable (3) Multiple pulmonary nodules: Code(s): R91.8 - Other nonspecific abnormal finding of lung field Category: Medical Plan: follows up with thoracics for CT scans Plan The patient agreed to the use of a medical secretary teacher for this encounter. Scribed for LINDA Clark by Denisse Smallwood medical secretary teacher, on 05/13/2024 at 09:30 EST. Orders: Orders US abdomen limited Today K82.4 - Cholesterolosis of gallbladder
== END 2024-05-13 10:10 | disposition home or self-care (01) ==
PROVIDERS: PCP Nurse Practitioner Family; Visit Provider Nurse Practitioner Family
DX: K82.4 Cholesterolosis of gallbladder (principal); I10 Essential (primary) hypertension; R91.8 Other nonspecific abnormal finding of lung field; Z23 Encounter for immunization

== ENCOUNTER → 2024-05-13 09:17 | Outpatient (BNVA) | payer MEDICARE, OTHER, SELFPAY | PROVIDERS: PCP Nurse Practitioner Family; Visit Provider Nurse Practitioner Family | DX: Z23 Encounter for immunization (principal); K82.4 Cholesterolosis of gallbladder; I10 Essential (primary) hypertension; R91.8 Other nonspecific abnormal finding of lung field | CPT/HCPCS: 90471; 90677; 96127; 99212 ==

== ENCOUNTER 2024-05-22 08:41 | Outpatient (REF) | payer MEDICARE, OTHER, SELFPAY ==
--- NOTE | ~2024-05-22 | US_ITS ---
EXAMINATION: US ABDOMEN LIMITED CLINICAL INFORMATION: Cholesterolosis of the gallbladder. COMPARISON: Ultrasound abdomen complete February 2019. TECHNIQUE: Real-time imaging of the right upper quadrant abdominal viscera. FINDINGS: PANCREAS: The visualized portion of the pancreas head and body are normal, portion of the pancreatic body and tail, not visualized are obscured by bowel gas. LIVER: The liver is normal in size. The liver contour is normal. Increased echogenicity of the liver parenchyma, this can be seen in the setting of hepatic steatosis or liver parenchymal disease. No focal hepatic lesion. There is no intrahepatic biliary duct dilatation seen. GALLBLADDER: The gallbladder is physiologically distended. Multiple mobile gallstones are present. No evidence of gallbladder wall thickening or pericholecystic fluid. COMMON BILE DUCT: Normal in caliber measuring 0.28 cm in diameter. RIGHT KIDNEY: Normal. No hydronephrosis. No renal calculi or focal parenchymal lesions. The kidney measures 8.8 cm in maximum dimension. FREE FLUID: None. US/US abdomen limited IMPRESSION: 1. Cholelithiasis without ultrasound evidence of acute cholecystitis. 2. Increased echogenicity of the liver parenchyma, this can be seen in the setting of hepatic steatosis or liver parenchymal disease. Electronically signed by: David Malcolm MD 06/14/2024 05:28 PM EST
[2024-05-22 10:03] LABS: Appearance Urine Clear; Color Urine Yellow; Glucose Urine UA Negative (Negative); Leukocyte Esterase Urine Trace (Negative); Nitrite Urine Negative (Negative); Specific Gravity - Urine 1.015 (1.005-1.025); UMIC TRIGGER UACC YES; Urine Blood Negative (Negative); Urine Ketones Negative (Negative); Urine Protein Negative (Neg-Trace)
[2024-05-22 10:07] LABS: MANUAL DIFF FLAG NO
[2024-05-22 10:10] LABS: Basophils Absolute Auto 0.1 X10*3/uL (0.0-0.2); Basophils Percent Auto 0.9 % (0-2); Eosinophils Absolute Auto 0.1 X10*3/uL (0.0-0.4); Eosinophils Percent Auto 2.4 % (0-4); Hematocrit 41.2 % (37.0-47.0); Hemoglobin 13.7 g/dl (12.0-16.0); Imm Gran Abs Auto 0.02 X10*3/uL (0.00-0.03); Imm Gran Pct Auto 0.4 % (0.0-0.4); Lymphocytes Absolute Auto 1.2 X10*3/uL (1.2-4.9); Lymphocytes Percent Auto 22.2 % (20-40); Mean Corpuscular HGB Conc 33.3 g/dl (31.0-35.0); Mean Corpuscular Hemoglobin 31.2 pg (27.0-33.0); Mean Corpuscular Volume 93.8 fL (80.0-98.0); Mean Platelet Volume 9.4 fL (9.4-12.3); Monocytes Absolute Auto 0.5 X10*3/uL (0.1-1.2); Monocytes Percent Auto 9.5 % (2-11); Neutrophils Absolute Auto 3.5 x10*3/uL (2.0-8.3); Neutrophils Percent Auto 64.6 % (45-73); Platelet Count 238 X10*3/uL (160-400); Red Blood Count 4.39 X10*6/uL (4.20-5.50); Red Cell Distribution Width 12.2 % (11.0-16.0); White Blood Count 5.4 X10*3/uL (4.8-10.8)
[2024-05-22 10:11] LABS: Bacteria Urine None Seen (None Seen); Hyaline Casts Urine 0-2 /LPF (0-2); RBC Urine 0-2 /HPF (0-2); Squamous Epithelial Cell Urine 0-2 /HPF (0-2); WBC Urine 0-5 /HPF (0-5)
[2024-05-22 10:45] LABS: Alanine Aminotransferase 23 U/L (0-31); Alkaline Phosphatase 52 U/L (39-117); Anion Gap 11 (12-20); Aspartate Amino Transferase 25 U/L (5-31); Bilirubin Total 0.8 mg/dL (0.0-1.0); Blood Urea Nitrogen 14 mg/dL (9-16); Calcium 9.3 mg/dL (8.4-10.2); Carbon Dioxide 30 mmol/L (22-29); Chloride 105 mmol/L (96-108); Cholesterol 203 mg/dL (<200); Estimated Glomerular Filt Rate > 60; Glucose Fasting 103 mg/dL (60-99); HDL Cholesterol 80 mg/dL (>40); LDL Cholesterol Calculated 110 mg/dL (<100); Potassium 4.5 mmol/L (3.3-5.1); Sodium 141 mmol/L (135-145); TSH reflex Free T4 1.39 uIU/mL (0.32-4.0); Total Protein 6.5 g/dL (6.5-8.0); Triglycerides 66 mg/dL (<150); Vitamin D 25-OH Total 28.1 ng/mL (>30)
[2024-05-22 11:16] LABS: Folate 15.8 ng/mL (> or = 4.0); Vitamin B12 474 pg/mL (200-900)
== END 2024-05-22 08:42 | disposition home or self-care (01) ==
LOC: HO.HMGCX 08:41
PROVIDERS: PCP Nurse Practitioner Family; Visit Provider Nurse Practitioner Family
DX: Z00.00 Encounter for general adult medical examination without abnormal findings (principal); K82.4 Cholesterolosis of gallbladder; E53.8 Deficiency of other specified B group vitamins; E55.9 Vitamin D deficiency, unspecified
CPT/HCPCS: 36415; 76705; 80053; 80061; 81001; 81003; 82306; 82607; 82746; 84443; 85025

== ENCOUNTER 2024-11-12 09:01 | Outpatient (AMB) | payer MEDICARE, OTHER, SELFPAY ==
[2024-11-12 09:05] VITALS: BP 130/72; PULSE 82; RESP 17; O2SAT 96; BMI 21.9
--- NOTE | 2024-11-12 09:05 | MHC.PC.OV ---
Vital Signs 11/12/24 09:05 Height 5 ft 2 in Weight 119 lb 8 oz BMI 21.9 BP 130/72 Blood Pressure Location Lt brachial Position Sitting Respiration 17 Pulse 82 Pulse Source Pulse Oximeter Pulse Oximetry (%) 96 Oxygen Delivery Method Room Air Intake Visit Reasons: 6m follow up Allergies Giflesv-TDR-NkO Reductase Inhibitor Allergy (Mild, Verified 11/12/24 09:05) cannot tolerate Medication List - Last Reconciled 11/12/24 by LINDA Hloland buspirone 7.5 mg PO DAILY celecoxib (Celebrex) 200 mg PO DAILY PRN esomeprazole magnesium 20 mg PO DAILY levothyroxine 88 mcg PO QAM lisinopril 20 mg PO DAILY 90 days rosuvastatin 5 mg PO 3XW Tobacco use date assessed: 11/12/24 Fall risk assessment: No Falls in past year Last assessed Fall Risk: 11/12/24 Dental Screening Dental Screen Date: 11/12/24 Did you have a dental visit in the last 12 months?: Yes Did you have a dental problem in the last 6 months where you did not have access to dental care?: No Was dental information given to patient?: Patient has dentist [facility] Medical History Hx of radiation therapy COVID-19 vaccine series completed Arthritis Osteoarthritis DDD (degenerative disc disease) Dyskinesia of gallbladder GERD (gastroesophageal reflux disease) Ductal carcinoma in situ (DCIS) of left breast Dyslipidemia Anxiety Osteopenia HTN (hypertension) Hypothyroid Surgical History Hx of left cataract extraction History of esophagogastroduodenoscopy (EGD) Hx of blepharoplasty Breast cancer History of hammer toe correction Family History Father HTN (hypertension) Mother No problems noted. Social History Housing: Condominium Are you a primary medication care manager to a significant other at home: No Do you presently have visiting nurse or other home services: No Alcohol intake: current Patient Tobacco Use Status: Former Tobacco user Tobacco use type: Cigarette e-Cigarette/Vaping Use: Never Used Second Hand Smoke Exposure: No Advance Directives Date on File: 05/15/21 Current occupational status: retired Cognitive needs: No Hearing needs: No Vision needs: No Questionnaire PHQ-9 Over the last 2 weeks, how often have you been bothered by any of the following problems? 1. Little interest or pleasure in doing things: not at all 2. Feeling down, depressed, or hopeless: not at all 3. Trouble falling or staying asleep, or sleeping too much: not at all 4. Feeling tired or having little energy: not at all 5. Poor appetite or overeating: not at all 6. Feeling bad about yourself - or that you are a failure or have let yourself or your family down: not at all 7. Trouble concentrating on things, such as reading the newspaper or watching television: not at all 8. Moving or speaking so slowly that other people could have noticed. Or the opposite - being so fidgety or restless that you have been moving around a lot more than usual: not at all 9. Thoughts that you would be better off or of hurting yourself in some way: not at all Total score: 0 Depression Screening Interpretation: Negative Depression Screening Done: Yes 00851 - PHQ-9 Billing: Yes Source: Developed by Drs. Joselito Kline, Gemini aSpp, Alexander Gould and colleagues, with an educational william from [employer] Thrive Questionnaire Date Thrive assessed: 11/12/24 I am a: Patient What is your living situation today?: I have a steady place to live Within the past 12 months, did the food you bought not last and you didn't have the money to get more?: Never true Within the past 12 months, did you worry whether your food would run out before you got money to buy more?: Never true Do you have trouble paying for medicines?: No Do you have trouble getting transportation to medical appointments?: No Do you have trouble paying your heating and electricity bill?: No Do you have trouble taking care of your child, family member or friend?: No Do you have trouble with day-to-day activities such as bathing, preparing meals, shopping, managing finances, etc.?: No Are you currently unemployed and looking for a job?: No Are you interested in more education?: No Please select the resources that you would like help with: None Currently or been in a relationship where the following occur: No concerns reported THRIVE Score: 0 AUDIT C Alcohol Use Questionnaire (AUDIT-C) 1. How often do you have a drink containing alcohol?: 2-3 times a week 2. How many drinks containing alcohol do you have on a typical day when you are drinking?: 1 or 2 3. How often do you have six or more drinks on one occasion?: Never Total Score: 3 Score Reviewed/Action Taken: Yes BAIRON-7 AMB Questionnaire BAIRON-7 Date BAIRON - 7 assessed: 11/12/24 Feeling nervous, anxious, or on edge: 0 = Not at all Not being able to stop or control worryin = Not at all Worrying too much about different things: 0 = Not at all Trouble relaxin = Not at all Being so restless that it is hard to sit still: 0 = Not at all Becoming easily annoyed or irritable: 0 = Not at all Feeling afraid as if something awful might happen: 0 = Not at all Total BAIRON-7 score (0-4 normal; 5-9 mild; 10-14 moderate; 15-21 severe): 0 Source: Developed by Drs. Joselito Kline, Gemini Sapp, Alexander Gould and colleagues, with an educational william from [employer] BAIRON-7 Assessment Billing BAIRON-7 Assessment Tool: BAIRON-7 Assessment 12089 Physical exam (Primary Care) Vital Signs: Last Vital Signs Pulse 82 11/12/24 09:05 Resp 17 11/12/24 09:05 BP 130/72 11/12/24 09:05 Pulse Ox 96 11/12/24 09:05 Oxygen Delivery Method Room Air 11/12/24 09:05 BMI result Body Mass Index 21.9 Tobacco/Smoking Status: Tobacco use Status Tobacco use date assessed 11/12/24 11/12/24 09:05 Patient Tobacco Use Status Former Tobacco user 11/12/24 09:05 Tobacco use type Cigarette 11/12/24 09:05 e-Cigarette/Vaping Use Never Used 11/12/24 09:05 PHQ-9: PHQ-9 Score PHQ-9: Total score 0 11/12/24 09:14 Depression Screening Interpretation: Negative Thrive Assessment: Date of Thrive Assessment Date Thrive assessed 11/12/24 11/12/24 09:14 Currently or been in a relationship where the following occur: No concerns reported Coding Level of Care Code Est Pt Level 3 (88990) Diagnoses HTN (hypertension) I10 Dyslipidemia E78.5 Toe abrasion S90.416A Additional Codes BAIRON-7 Assessment Billing - BAIRON-7 Assessment Tool: BAIRON-7 Assessment 13963 ([id number]) PHQ-9 - 75305 - PHQ-9 Billing: Yes ([id number]) Assessment & Plan Assessment & Plan (1) HTN (hypertension): Code(s): I10 - Essential (primary) hypertension Category: Medical (2) Dyslipidemia: Code(s): E78.5 - Hyperlipidemia, unspecified Category: Medical (3) Toe abrasion: Code(s): S90.416A - Abrasion, unspecified lesser toe(s), initial encounter Category: Medical Plan . Orders: Orders UA CC w/rflx Micro + Cult Today E78.5 - Hyperlipidemia, unspecified, I10 - Essential (primary) hypertension Complete Blood Count Auto Diff Today E78.5 - Hyperlipidemia, unspecified, I10 - Essential (primary) hypertension Comprehensive [place]. Panel Fast Today E78.5 - Hyperlipidemia, unspecified, I10 - Essential (primary) hypertension TSH reflex Free T4 Today E78.5 - Hyperlipidemia, unspecified, I10 - Essential (primary) hypertension Lipid Panel Today E78.5 - Hyperlipidemia, unspecified, I10 - Essential (primary) hypertension
--- OUTSIDE RECORDS SUMMARY | 2024-11-12 09:52 | XMS_ITS ---
[facility] Address [address] [place] [address] Care Team Providers Care Corporate Accountant Name Role Phone Atul Conway Primary Care Provider Unav ailable Singh Arenas Unavailable [phone] REASON FOR VISIT Lt Grt toe Encounters Encounter Location Date Provider Diagnosis [facility] [place] [address] [place] [address] 06/05/2024 Singh Arenas Plan Of Treatment No Information Progress Notes * CONSTANTIN TaviamarkelfranciscaDOB:[birth year] (78 yo F)Acc No.[id number]:06/05/2024 Patient:?Birgit Wiley :1945???Age:78 Y???Sex:Female Address:[address], [place] [address] * true * Date:? Generated for Anai rylan/Lisa/eTransmitting on:?11/12/2024 09:52 AM EDT
--- OUTSIDE RECORDS SUMMARY | 2024-11-12 09:53 | XMS_ITS ---
[facility] [place] Address [address] [place], [place] [address] Care Team Providers Care Assistant Coach Name Role Phone Atul Conway Primary Care Provider Unav ailable DagobertoSingh Unavailable [phone] Allergies Allergen (clinical drug ingredient) Drug/Non Drug Allergy documented on EMR Reaction Allergy Type Onset Date Status Adhesive Unknown Allergy Active Latex Latex Unknown Allergy Active REASON FOR VISIT Open sore - Toe, Skin problem(s) Medications Medication SIG (Take, Route, Frequency, Duration) Notes Start Date End Date Status Rosuvastatin Calcium 5 MG Oral for 84 Days Active Esomeprazole Magnesium 20 MG 1 capsule Orally Once a day Active busPIRone HCl 7.5 mg as needed Active Cephalexin 500 MG 1 capsule Orally every 8 hrs for 10 days Active Celecoxib 200 MG TAKE 1 CAPSULE BY MOUTH EVERY DAY NEEDED FOR PAIN Oral for 30 Days Active Levothyroxine Sodium 88 MCG TAKE 1 TABLET BY MOUTH EVERY DAY IN THE MORNING Oral for 90 Days Active Lisinopril 20 MG Oral for 90 Days Active Social History Tobacco Use: Social History Observation Description Date Details (start date - stop date) Former Smoker NA - NA Tobacco Use/Smoking Question Answer Notes Are you a: former smoker Additional Findings: Tobacco Non-User Current no n-smoker Alcohol Screen Question Answer Notes Did you have a drink containing alcohol in the p ast year? Yes Points 0 Interpretation Negative Tobacco use other than smoking: Question Answer Notes Are you an other tobacco user? No Vital Signs Height 5 ft 2 in in 06/05/2024 Weight 120 lbs 06/05/2024 BMI 21.95 kg/m2 06/05/2024 Procedures Procedure Date Ordered Date Performed Result Body Sit e 19490- Debride <25 sq cm 06/05/2024 N/A Encounters Encounter Location Date Provider Diagnosis [facility] [address] [place] [address] 06/05/2024 Singh Arenas Skin ulcer of toe of left foot, limited to breakdown of skin L97.521 and Cellulitis of toe of left foot L03.032 Assessments Encounter Date Diagnosis (ICD Code) Assessment Notes Treatment Notes Treatment Clinical Notes Section Notes 06/05/2024 Skin ulcer of toe of left foot, limited to breakdown of skin (ICD-10 - L97.521) Response to treatment, improved, unresolved Patient Educated with: WOUND CARE INSTRUCTIONS.p df (WOUND CARE INSTRUCTIONS.p df) 06/05/2024 Cellulitis of toe of left foot (ICD-10 - L03.032) 06/05/2024 Other Plan Of Treatment Medication Medication Name Sig Start Date Stop Date Notes Cephalexin 500 MG 1 capsule Orally every 8 hrs for 10 days Treatment Notes Assessment Notes Skin ulcer of toe of left fo ot, limited to breakdown of skin Patient Educated with: WOUND CARE INSTRUCTIONS.pdf (WOUND CARE INSTRUCTIONS.pdf) Pending Test Test Name Order Date 07115- Debride <25 sq cm 06/05/2024 Next Appt Details Follow Up: as scheduled, Joslyn son: Progress Notes * Birgit KILLIANDOB:[birth year] (78 yo F)Acc No.[id number]:06/05/2024 Progress Note Patient:?Birgit Killian Provider:?Singh Arenas DPM :1945???Age:78 Y???Sex:Female D ate:06/05/2024 Address: [address], [place], [place] Pcp:DARÍO Clark Subjective: * Chief Complaints: * ???Open sore - ToeSkin probl em(s) * HPI: ???Skin problems:?Nature:?redness, swelling , tender.?Location:?Top , 1st , Toe(s) , Left.?Treatments:?medication ( Keflex), Local care consisting of daily distilled water wound cleanse, Medihoney topical antibiotic as recommended, application of sterile dressing, offloading/pressure reduction via rest, shoe modification, insert modification, accommodative padding, assisted ambulation via cane, and surgical debridement.? * ROS:?General/Constitutional:?Nausea?denies.?Vomiting?denies.?Hunger Thirst?denies.?Loss appetite?denies.?Chills?denies.?Fatigue?denies.?Fever?denies.?Night Sweats?denies.?Unexplained weight loss?denies.?Unexplained weight gain?denies.?HEENTM:?Dentures?denies.?Dizziness?denies.?Glasses/contacts?admits.?Retinopathy?de nies.?Blurred/double vision?denies.?TMJ?denies.?Discharge/drainage?denies.?Implants?denies.?Sore throat?denies.?Dental implants?admits.?Hard of hearing ?denies.?Difficulty chewing/swallowing/speaking?denies.?Nose bleeds?denies.?Sore mouth?denies.?Respiratory:?On Oxygen?denies.?Pneumonia/pleurisy?denies.?Bronchitis?denies.?Emphysema?denies.?C oughing?denies.?Cough blood?denies.?Shortness of breath?denies.?Wheezing?denies.?Cardiovascular:?Pacemaker?denies.?MVP?denies.?WPW?denies.?CHF?denies.?Heart attack?denies.?Septal defect?denies.?Rapid beat?denies.?Chest pain ?denies.?Atrial Fib.?denies.?Murmur/Palpitations?denies.?Gastrointestinal:?Hemorrhoids?denies.?Stomach/Abdominal pain?denies.?Dark blood stool?denies.?Irritable bowel ?admits.?Constipation?denies.?Diarrhea?denies.?Hematology:?Swelling?denies.?Clots?denies.?Varicose Veins?denies.?Bruising?denies.?Bleeding problem?denies.?Genitourinary:?Blood urine?denies.?Frequent/Painfu/urination/bladder control?denies.?Kidney stones?denies.?Infection (UTI)?denies.?Nephropathy?denies.?sex trans dis (STD)?denies.?Prostate?denies.?Musculoskeletal:?Hammertoes?admits.?Bunions?admits.?Back Pain?denies.?Muscle Cramps/ Resting?denies.?Muscle cramps / walking?denies.?Generalized aches and pains?denies.?Weakness?denies.?Integ.:?Hodge?denies.?Scars?denies.?Corns/calluses?admits.?Ingrown nails?admits.?Painful nails?denies.?Open Sores?denies.?Rashes?denies.?Neurologic:?Difficulty sleeping?denies.?Brain disorder?denies.?Numbness?admits.?Balance trouble?denies.?Confusion?denies.?Fainting/blackouts?denies.?Tingling?denies.?Tr emors?denies.? * Medical History:? * Surgical History:?Breast Ivonne nessa 2018bunionectomy * Hospitalization/Major Diagno stic Procedure:?Denies Past Hospitalization * Family History:?Mother: dece ased, diagnosed with Family history of arthritis.?Father: , diagnosed with Unspecified essential hypertension, Unspecified heart disease.? * Social History:?Tobacco Use:?Tobacco Use/Smoking?Are you a:?former smoker ?Additional Findings: Tobacco Non-User?Current non-smoker ?Tobacco use other than smoking?Are you an other tobacco user??No ???Drugs/Alcohol:?Drugs?Have you used drugs other than those for medical reasons in the past 12 months??No ?Alcohol Screen?Did you have a drink containing alcohol in the past year??Yes ?Points?0 ?Interpretation?Negative ???Miscellaneous:?Caffeine: yes, frequency:. ?Children: yes, 2. ?no Exercise. ?Marital status: . ?Occupation: Retired. * Medications:?TakingbusPIRone HCl , Notes: 7.5 mg as neededEsomeprazole Magnesium 20 MG Capsule Delayed Release 1 capsule Orally Once a dayRosuvastatin Calcium 5 MG Tablet Oral Lisinopril 20 MG Tablet Oral Levothyroxine Sodium 88 MCG Tablet TAKE 1 TABLET BY MOUTH EVERY DAY IN THE MORNING Oral Celecoxib 200 MG Capsule TAKE 1 CAPSULE BY MOUTH EVERY DAY NEEDED FOR PAIN Oral Cephalexin 500 MG Capsule 1 capsule Orally every 8 hrsMedication List reviewed and reconciled with the patientTaking busPIRone HCl , Notes: 7.5 mg as neededTaking Esomeprazole Magnesium 20 MG Capsule Delayed Release 1 capsule Orally Once a dayTaking Rosuvastatin Calcium 5 MG Tablet Oral Taking Lisinopril 20 MG Tablet Oral Taking Levothyroxine Sodium 88 MCG Tablet TAKE 1 TABLET BY MOUTH EVERY DAY IN THE MORNING Oral Taking Celecoxib 200 MG Capsule TAKE 1 CAPSULE BY MOUTH EVERY DAY NEEDED FOR PAIN Oral Taking Cephalexin 500 MG Capsule 1 capsule Orally every 8 hrsMedication List reviewed and reconciled with the patient * Allergies:?AdhesiveLatexyes[ Allergies Verified] Objective: * Vitals:?Ht: 5 ft 2 in, Wt:12 0, BMI: 21.95, Shoe size:6.5-7, Ht-cm: 157.48 cm, Wt-k.43 kg. * Examination: ???Dermatologic: ?SKIN FINDINGS:? Skin shows approximately 80% LESS, sign(s) of, localized cellulitis without lymphangitis extending proximally to the level of the MPJ, TA.?ULCER:? LOCATION, Dorsal, IPJ,TA, SIZE, NOW, 6 mm X 4mm X 2mm, BASE, fibro-granular, RIM, hyperkeratotic, UNDERMINING, absent, TRACKING, Full thickness breakdown of skin, DRAINAGE, serosanguineous, mild, NECROTIC TISSUE, loosely-adherent, yellow slough, MALODOR, absent, CALOR, absent, ERYTHEMA, absent, PAIN ON PALPATION, present.? Assessment: * Assessment: 1.?Cellulitis of toe of left foot - L03.032, Acute problem, Uncomplicated (3),Response to treatment - Improvement,Rx Management (4)?2.?Skin ulcer of toe of left foot, limited to breakdown of skin - L97.521, Acute problem, Complicated w/ Multiple Tx Options(4),Dx New problem, Prognosis Uncertain (4), Response to treatment, improved, unresolved? Plan: * Treatment: 2.?Skin ulcer of toe of left foot, limited to breakdown of skin?Procedure: 06515- Debride <25 sq cm Notes: Patient Educated with: WOUND CARE INSTRUCTIONS.pdf (WOUND CARE INSTRUCTIONS.pdf)?? * Procedure Codes:?33262 ACTIV E WOUND CARE/20 CM OR < * Preventive Medicine:? ??Counseling:?Discussion:?-13: Office or other outpatient visit for the evaluation and management of an established patient, which required a medically appropriate history and/or examination and LOW level of DECISION MAKING for: 1 STABLE ACUTE UNCOMPLICATED PROBLEM, 2 OR MORE MINOR PROBLEMS, OR 1 STABLE CHRONIC PROBLEM, THAT POSE(S) A LOW RISK FOR MORBIDITY/MORTALITY. The visit on the day of the encounter encompassed interpreting the data and educating the patient as to the nature of their condition, treatment options available according to their individual PMH, meds, allergies, and overall health/living conditions, as well as any potential risks or complications that may occur from a failure to adhere to, and participate in, the recommended course of therapy. The discussion included a complete verbal, and/or written explanation of the examination results, any x-rays taken, the proposed diagnosis, and outline of the treatment plan. A schedule for future care needs was also explained. The patient verbalized an understanding of the instructions at this time and agreed to be an active participant in their treatment. If the patient should think of any questions or concerns after the visit, I have encouraged the patient to call the office.?Cellulitis/Lymphangitis?The patient was counseled on the diagnosis, etiology, treatment options, and importance for adherence to recommendations regarding the treatment for Cellulitis. REFILLED Abx that were Rxed to address the cellulitis. The advantages and disadvantages of an antibiotic medication, along with its side effects, were discussed with the patient to their comprehended satisfaction. Patient questions re: use, dosage, and possible pharmacutical interactions were reviewed and the answers clearly understood. If the condition should worsen while taking the antibiotics as directed, it was recommeded that the patient call the office immediately or seek emergency medical care. The patient verbally confirmed a full understanding of the above information.?Ulcer:?The patient is to cont to cleanse the wound with warm soapy water/peroxide/saline, or betadine BID based on product availability. The patient is to apply ( Rx Medihoney, ) Antibiotic to the wound and cover with a DSD as directed. The patient was instructed to change dressings according to orders, or PRN saturation, leaks. The patient was instructed to monitor and report any signs or symptoms of infection or any untoward reactions. Precautions Taken: Offloading/Pressure reduction via rest/ limited activity to essential to daily life only, cane, shoe modification, accommodative padding, sharp debridement, and take/apply medication as directed. THE GOALS of wound debridement to remove devitilized tissue, decrease risk for infection, promote wound healing and prevent further complication were discussed/reviewed. Debridement frequency as indicated.? * Follow Up:?as scheduled * Images: * Sign off status: Completed true * Provider:?Singh Arenas DPM Date:?2023 Generated for Felipe fagan/Lisa/Markos on:?11/12/2024 09:53 AM EDT History and Physical Notes * HPI (History of Present Illness) Category Sub-Category Detail Notes Category Not es Skin problems Nature: redness , swelling , tender Location: Top , 1st , Toe(s) , Left Treatments: medication ( Keflex) , Local care consisting of daily distilled water wound cleanse, Medihoney topical antibiotic as recommended, application of sterile dressing, offloading/pressure reduction via rest, shoe modification, insert modification, accommodative padding, assisted ambulation via cane, and surgical debridement Examination Category Sub-Category Detail Notes Category Not es Dermatologic SKIN FINDINGS: Skin shows appro ximately 80% LESS, sign(s) of, localized cellulitis without lymphangitis extending proximally to the level of the MPJ, TA ULCER: LOCATION, Dorsal, IP J,TA, SIZE, NOW, 6 mm X 4mm X 2mm, BASE, fibro- granular, RIM, hyperkeratotic, UNDERMINING, absent, TRACKING, Full thickness breakdown of skin, DRAINAGE, serosanguineous, mild, NECROTIC TISSUE, loosely-adherent, yellow slough, MALODOR, absent, CALOR, absent, ERYTHEMA, absent, PAIN ON PALPATION, present
--- OUTSIDE RECORDS SUMMARY | 2024-11-12 09:53 | XMS_ITS | Clinical Summary ---
Author Organization [facility] Address [address] [place] [address] Phone Care Team Providers Care University Librarian Name Role Phone Atul Sanz NP Primary Care Provider Allergies Active Allergy Reactions Criticality Noted Date Comments Aluminized Plastic 10/06/2024 Nickel 08/28/2018 Causes contact allergy Xbeyzsq-Tzb-Ort Reductase Inhibitors 10/29/2023 Medications lisinopriL (PRINIVIL,ZESTR IL) 20 mg tablet Take 1 tablet (20 mg total) by mouth 1 (one) time each day. 09/19/2024 Active levothyroxine (SYNTHROID, LEVOTHROID) 88 mcg tablet Take 1 tablet (88 mcg total) by mouth 1 (one) time each day in the morning. Active busPIRone (BUSPAR) 7.5 mg tablet Take 1 tablet (7.5 mg total) by mouth. Active esomeprazole (NexIUM) [address] capsule 1 capsule (20 mg total) 1 (one) time each day at the same time. Active ibuprofen (ADVIL,MOTRIN) 200 mg tablet Take 1 tablet (200 mg total) by mouth as needed. Active celecoxib (CeleBREX) 200 mg capsule TAKE 1 CAPSULE BY MOUTH EVERY DAY NEEDED FOR PAIN Active rosuvastatin (CRESTOR) 5 mg tablet Take 1 tablet (5 mg total) by mouth daily. Active Active Problems Problem Noted Date Diagnosed Date Other constipation 10/06/2024 Anxiety 06/10/2024 GE reflux 06/10/2024 Hypertension 06/10/2024 Pulmonary nodules 11/01/2023 Overview (06/10/2024): Last Assessment & Plan: 78-year-old woman former smoker many years ago with multiple pulmonary nodules found incidentally on CT scan of the chest. On my review of the imaging, these nodules have somewhat of an inflammatory shape to them. I did go over the CAT scan with her in detail as described in the HPI. I also discussed pulmonary nodules and how their size, shape, and electronic data interchange specialist time affect her level of suspicion for malignancy. Based on the appearance of these nodules I think it is less likely these are malignant but I do think they require close monitoring. Options I discussed with her would be continued observation with a 3-month follow-up CT scan versus needle biopsy versus surgery. My recommendation to her was for continued observation which would be a 3-month follow-up CT scan of the chest and a visit with me after that. After discussing this she decided to move forward with observation and we will arrange for her to have a CT scan of the chest in 6 months at [facility] and we will scan in her [facility]. All questions were answered. Assessment & Plan (10/23/2024 12:25 PM EDT): 79-year-old female former smoker has been being followed by the thoracic surgery department for multiple pulmonary nodules some which have waxed and waned in some which have remained stable. Most recent chest CT scan in September 2024 show a solid, noncalcified, bilobed nodule in the lateral segment of the right middle lobe measuring 8 mm in mean diameter (image 136 series 3) is unchanged from previous studies and per my viewing may look slightly smaller in size. The previous new nodule that was seen 3 months ago has decreased in size and remaining subcentimeter pulmonary nodules remain stable She reports feeling generally good health denies unintentional weight loss decreased appetite fevers chills or soaking sweats. She denies chest pain shortness of breath cough or hemoptysis. While in office she was given the option of biopsy which would include VATS versus navigational bronchoscopy versus continued surveillance in regards to the 8 mm bilobed pulmonary nodule in the right middle lobe. After given the risks and benefits of each she decided to move forward with continued surveillance which would be a 6-month chest CT scan and would be due in March 2025. Assessment & Plan (07/13/2024 2:44 PM EST): 79-year-old woman former smoker many years ago with multiple pulmonary nodules found incidentally on CT scan of the chest. On my review of the imaging, these nodules have somewhat of an inflammatory shape to them. These nodules have decreased and others have increased while still others are new. There is a polygonal shaped nodule in the right middle lobe that I think warrants close follow-up still. I did go over the CAT scan with her in detail as described in the HPI. I also discussed pulmonary nodules and how their size, shape, and electronic data interchange specialist time affect her level of suspicion for malignancy. Based on the appearance of these nodules I think it is less likely these are malignant but I do think they require close monitoring. Options I discussed with her would be continued observation with a 3-month follow-up CT scan versus needle biopsy versus surgery. My recommendation to her was for continued observation which would be a 3-month follow-up CT scan of the chest and a visit with me after that. After discussing this she decided to move forward with observation and we will arrange for her to have a CT scan of the chest in 3 months at [facility] and we will scan in her [place] imaging. All questions were answered. We also talked about her PPI medication and her cough that seems to happen when getting up in the morning. I did advise her that maybe she increases the frequency of this that she is only taking it 3 times a week right now and this may help with her cough if it is indeed reflux related. Hypothyroidism 07/10/2019 Osteopenia 10/14/2018 Encounters Date Type Department Care Team Description 10/21/2024 10:00 AM EDT Office Visit Thoracic Surgery - [place] [address] [facility] [address] [place] [id number] Gary Saba, PA Pulmonary nodules (Primary Dx) 10/12/2024 2:16 PM EDT - 10/12/2024 11:59 PM EDT Hospital Encounter [facility] CT Scan [address] [place] [address] Pulmonary nodules Discharge Disposition: Home or Self Care 10/06/2024 2:30 PM EDT Office Visit Gastroenterology - [address] [place] [address] Jesus Castillo MD Gastroesophageal reflux disease without esophagitis (Primary Dx); Other constipation from Last 3 Months Surgical History Surgery Date Site/Laterality Comments BREAST BIOPSY 02/20/2018 Left PROCEDURE: BX BREAST; PERC NEEDLE CORE W/IMAG GUID; COMMENT: DCIS-high grade BREAST LUMPECTOMY 03/14/2018 Left PROCEDURE: HISTORICAL BREAST LUMPECTOMY; COMMENT: remaining DCIS, ER & NE positive FOOT SURGERY Left PROCEDURE: HISTORICAL FOOT SURGERY; COMMENT: bunionectomy EYE SURGERY Bilateral PROCEDURE: HISTORICAL EYE SURGERY; COMMENT: blepharopasty OTHER SURGICAL HISTORY PROCEDURE: HISTORY OTHER; COMMENT: uterine polypectomy Medical History Medical History Date Comments GE reflux DX:GE reflux Hypertension DX:Hypertension Osteopenia DX:Osteopenia Anxiety DX:Anxiety History of left breast cancer 10/14/2018 DX :History of left breast cancer; COMMENT: 2017 Estrogen receptor positive, S/p lumpectomy-declined Tamoxifen or aromatase inhibitors Hypothyroidism 07/10/2019 DX:Hypothyroidis m Mixed hyperlipidemia 11/01/2023 DX:Mixed hy perlipidemia Diverticul disease small and large intestine, no perforati or abscess 11/01/2023 DX:Diverticul disea se small and large intestine, no perforati or abscess Family History Medical History Relation Name Comments Other: Heart Disease Brother Prostate cancer Brother Other: Aortic Aneurysm Father Other: Skin Cancer Son Relation Name Status Comments Brother Alive Father Son Social History Tobacco Use Types Packs/Day Years Used Date Smoking Tobacco: Former Cigarettes 0.5 22 0 07/29/1961 - 07/29/1983 Smokeless Tobacco: Former Alcohol Use Standard Drinks/Week Comments Yes 0 (1 standard drink = 0.6 oz pur e alcohol) Comments Unknown Sex and Gender Information Value Date Recorded Sex Assigned at Female 10/08/2024 12:12 PM EDT Legal Sex Female 11:20 PM EST Gender Identity Female 10/08/2024 12:12 PM EDT Sexual Orientation Not on file Obstetrics History Last Filed Vital Signs Vital Sign Reading Time Taken Comments Blood Pressure 150/91 10/21/2024 9:56 AM EDT Pulse 72 10/21/2024 9:56 AM EDT Temperature 36.9 ??C (98.5 ??F) 10/21/2024 9:56 AM ED T Respiratory Rate 16 10/21/2024 9:56 AM EDT Oxygen Saturation 99% 10/21/2024 9:56 AM EDT Inhaled Oxygen Concentration - - Weight 54.6 kg (120 lb 6.4 oz) 10/21/2024 9:56 A M EDT Height 157.5 cm (5' 2 ) 10/21/2024 9:56 AM EDT Body Mass Index 22.02 10/21/2024 9:56 AM EDT Plan of Treatment Upcoming Encounters Date Type Department Care Team (Late st Contact Info) Description 04/12/2025 11:00 AM EDT Appointment [facility] CT Scan [address] [place] [address] 04/16/2025 1:30 PM EDT Office Visit Pulmonology - [place] [address] [facility] [address] [place] [phone] Daya Ravi MD [address] [place] [address] Health Maintenance Due Date Last Done Comments DTaP,Tdap,and Td Vaccines (1 - Tdap) 1964 COVID-19 Vaccine (3 - Moderna risk series) 10/18/2020 09/20/2020, 08/23/2020 Cholesterol Screening (Lipid Panel) 07/07/2022 Depression Screening 07/07/2022 Falls Risk Assessment 07/07/2022 Hepatitis C Screening 07/07/2022 Medicare Annual Wellness Visit 07/07/2022 Osteoporosis Screening (Bone Density Screening) 07/07/2022 Social Influencers of Health Screening 07/07/2022 Hypertension/CHF/CAD Annual BMP Blood Test 07/11/2022 Zoster Vaccines Completed 05/15/2022, 01/08/2022 Influenza Vaccine Completed 04/25/2024, , 04/27/2022, Additional history exists Pneumococcal Vaccine: 50+ Years Completed 05/13/2024, 04/24/2018, 04/22/2013 RSV Immunization Adult Patients Completed 07/06/2024 HIB Vaccines Aged Out No longer eligi ble based on patient's age to complete this topic HPV Vaccines Aged Out No longer eligi ble based on patient's age to complete this topic Hepatitis A Vaccines Aged Out No long er eligible based on patient's age to complete this topic Hepatitis B Vaccines Aged Out No long er eligible based on patient's age to complete this topic IPV Vaccines Aged Out No longer eligi ble based on patient's age to complete this topic MMR Vaccines Aged Out No longer eligi ble based on patient's age to complete this topic Meningococcal ACWY Vaccine Aged Out N o longer eligible based on patient's age to complete this topic Meningococcal B Vaccine Aged Out No l onger eligible based on patient's age to complete this topic RSV Immunization Patients Under 20 months Aged Out No longer eligible based on patient's age to complete this topic Varicella Vaccines Aged Out No longer eligible based on patient's age to complete this topic Procedures Procedure Name Priority Date/Time Associated Diagnosis Comments CT CHEST WO CONTRAST Routine 10/12/2024 2:26 PM EDT Pulmonary nodules from Last 3 Months Results * CT Chest wo Contrast (10/12/2024 2:26 PM EDT) Anatomical Region Laterality Modality Body Computed Tomogra phy 10/13/2024 8:28 AM EDT Impressions 10/13/2024 8:50 AM EDT Impression: 1. Decrease in size of the new solid right middle lobe nodule described on the most recent exam. 2. Stable subcentimeter pulmonary nodules elsewhere in both lungs. 3. No developing thoracic lymphadenopathy. Telerad PA ([id number]) -------- FINAL REPORT -------- Dictated By: Smitha Gutierrez Dictated Date: 10/13/2024 08:28 ET Assigned Physician: Smitha Gutierrez Reviewed and Electronically Signed By: Smitha Gutierrez Signed Date: 10/13/2024 08:50 ET Workstation ID: [id number] Transcribed By: Self Edit Transcribed Date: 10/13/2024 08:28 ET Narrative 10/13/2024 8:50 AM EDT History: Follow-up pulmonary nodules, 6 to 8 mm. Personal history of breast carcinoma. Comparison: 06/30/24, 01/13/24 Technique: Helical volumetric imaging of the thorax was performed, using low- dose technique, without IV contrast. DLP: 171.10 mGy/cm 4meee Maramec Iterative reconstruction technique Findings: The trachea and central bronchial tree remain patent. There are scattered foci of peripheral mucous plugging, similar to previous. Thin bandlike opacities are present in the lower lungs, unchanged, compatible with subsegmental atelectasis or scar. Minimal biapical pleural-based opacities are symmetric and without significant change, consistent with scarring. A solid, noncalcified, bilobed nodule in the lateral segment of the right middle lobe measuring 8 mm in mean diameter (image 136 series 3) is unchanged from previous studies. An adjacent polygonal opacity described on the previous study has decreased in size, now 16 x 9 mm compared to 17 x 12 mm, possibly part of the atelectatic change in this area (image 135). A 4 mm solid, noncalcified nodule in the inferior right middle lobe (image 147) is unchanged. A 6 mm solid, noncalcified juxtapleural nodule in the right lower lobe (image 161 series 3) is without significant change and may represent part of atelectatic band. A 3 mm solid, noncalcified nodule in the superior segment of the left lower lobe (image 96 series 3) is unchanged. No pleural or pericardial effusions are seen. The heart remains normal in size. Three-vessel coronary artery calcification is again noted. No developing thoracic lymphadenopathy is seen. A small lumpectomy scar is again seen in the upper outer left breast. A small portion of the upper abdomen included on the lowest images through the thorax is remarkable for diverticulosis of the partially imaged colon. No significant osseous abnormality is noted. Procedure Note Smitha Gutierrez MD - 10/13/2024 History: Follow-up pulmonary nodules, 6 to 8 mm. Personal history ofbreast carcinoma. Comparison: 06/30/24, 01/13/24 Technique: Helical volumetric imaging of the thorax was performed, usinglow-dose technique, without IV contrast. DLP: 171.10 mGy/cm 4meee Maramec Iterative reconstruction technique Findings: The trachea and central bronchial tree remain patent. There are scatteredfoci of peripheral mucous plugging, similar to previous. Thin bandlikeopacities are present in the lower lungs, unchanged, compatible withsubsegmental atelectasis or scar. Minimal biapical pleural-based opacitiesare symmetric and without significant change, consistent with scarring. A solid, noncalcified, bilobed nodule in the lateral segment of the rightmiddle lobe measuring 8 mm in mean diameter (image 136 series 3) isunchanged from previous studies. An adjacent polygonal opacity describedon the previous study has decreased in size, now 16 x 9 mm compared to 17x 12 mm, possibly part of the atelectatic change in this area (image 135).A 4 mm solid, noncalcified nodule in the inferior right middle lobe ([id number]) is unchanged. A 6 mm solid, noncalcified juxtapleural nodule in the right lower lobe(image 161 series 3) is without significant change and may represent partof atelectatic band. A 3 mm solid, noncalcified nodule in the superiorsegment of the left lower lobe (image 96 series 3) is unchanged. No pleural or pericardial effusions are seen. The heart remains normal in size. Three-vessel coronary arterycalcification is again noted. No developing thoracic lymphadenopathy isseen. A small lumpectomy scar is again seen in the upper outer left breast. A small portion of the upper abdomen included on the lowest images throughthe thorax is remarkable for diverticulosis of the partially imagedcolon. No significant osseous abnormality is noted. IMPRESSION: Impression: 1. Decrease in size of the new solid right middle lobe nodule described onthe most recent exam. 2. Stable subcentimeter pulmonary nodules elsewhere in both lungs. 3. No developing thoracic lymphadenopathy. Telerad PA ([id number]) -------- FINAL REPORT -------- Dictated By: Smitha Gutierrez Dictated Date: 10/13/2024 08:28 ET Assigned Physician: Smitha Gutierrez Reviewed and Electronically Signed By: Smitha Gutierrez Signed Date: 10/13/2024 08:50 ET Workstation ID: [id number] Transcribed By: Self Edit Transcribed Date: 10/13/2024 08:28 ET us Sofiya Alonso MD IMG CT PROCEDURES Final Result from Last 3 Months Insurance MEDICARE [facility] Care Teams University Librarian Relationship Specialty Start Date End Date Atul Sanz NP [address] [facility] [place] PCP - General 06/09/19
--- OUTSIDE RECORDS SUMMARY | 2024-11-12 09:53 | XMS_ITS ---
Author Organization [facility] Address [address] [place] [address] Care Team Providers Care Seal Delivery Vehicle Officer Name Role Phone Atul Conway Primary Care Provider Unav ailagus ArenasSingh Unavailable [phone] Allergies Allergen (clinical drug ingredient) Drug/Non Drug Allergy documented on EMR Reaction Allergy Type Onset Date Status Adhesive Unknown Allergy Active Latex Latex Unknown Allergy Active REASON FOR VISIT Open sore - Toe Medications Medication SIG (Take, Route, Frequency, Duration) Notes Start Date End Date Status Cephalexin 500 MG 1 capsule Orally every 8 hrs for 10 days Active Rosuvastatin Calcium 5 MG Oral for 84 Days Active Lisinopril 20 MG Oral for 90 Days Active busPIRone HCl 7.5 mg as needed Active Esomeprazole Magnesium 20 MG 1 capsule Orally Once a day Active Celecoxib 200 MG TAKE 1 CAPSULE BY MOUTH EVERY DAY NEEDED FOR PAIN Oral for 30 Days Active Levothyroxine Sodium 88 MCG TAKE 1 TABLET BY MOUTH EVERY DAY IN THE MORNING Oral for 90 Days Active Social History [...] Are you an other tobacco user? No Problems Problem Type SNOMED Code ICD Code Onset Dates Problem Status W/U Status Risk Notes Problem Essential hypertension (54647861) Essential hypertension (I10) Active confirmed Vital Signs Height 5 ft 2 in in 07/14/2024 Weight 120 lbs 07/14/2024 BMI 21.95 kg/m2 07/14/2024 Blood pressure systolic 120 mm Hg 07/14/20 24 Blood pressure diastolic 80 mm Hg 024 Encounters Encounter Location Date Provider Diagnosis [facility] [address] [place] [address] 07/14/2024 Singh Arenas Skin ulcer of toe of left foot, limited to breakdown of skin L97.521 Assessments Encounter Date Diagnosis (ICD Code) Assessment Notes Treatment Notes Treatment Clinical Notes Section Notes 07/14/2024 Skin ulcer of toe of left foot, limited to breakdown of skin (ICD-10 - L97.521) Response to treatment - Improvement 07/14/2024 Other Plan Of Treatment Next Appt Details Follow Up: prn, Reason: Progress Notes * CONSTANTINTavia PATTONashleyDOB:[birth year] (79 yo F)Acc No.[id number]:07/14/2024 Progress Note Patient:?Tavia KILLIANricia Provider:?Singh Arenas DPM :1945???Age:79 Y???Sex:Female D ate:07/14/2024 Address:[address] [place] [address] , [place], [place] Pcp:Atul Sanz NP-TAYO Subjective: * Chief Complaints: * ???Open sore - Toe * HPI: ???Skin problems:?Location:?Top , 1st , Toe(s) , Left.?Treatments:?Local care consisting of daily distilled water wound [...] ?Interpretation?Negative ???Miscellaneous:?Caffeine: yes, frequency:. ?Children: yes, 2. ?Exercise: no. ?Marital status: . ?Occupation: Retired. * Medications:?TakingbusPIRone HCl , Notes to Pharmacist: 7.5 mg as neededEsomeprazole Magnesium 20 MG Capsule Delayed Release 1 capsule Orally Once a day Rosuvastatin Calcium 5 MG Tablet Oral Lisinopril 20 MG Tablet Oral Levothyroxine Sodium 88 MCG Tablet TAKE 1 TABLET BY MOUTH EVERY DAY IN THE MORNING Oral Celecoxib 200 MG Capsule TAKE 1 CAPSULE BY MOUTH EVERY DAY NEEDED FOR PAIN Oral Cephalexin 500 MG Capsule 1 capsule Orally every 8 hrs Medication List reviewed and reconciled with the patientTaking busPIRone HCl , Notes to Pharmacist: 7.5 mg as neededTaking Esomeprazole Magnesium 20 MG Capsule Delayed Release 1 capsule Orally Once a day Taking Rosuvastatin Calcium 5 MG Tablet Oral Taking Lisinopril 20 MG Tablet Oral Taking Levothyroxine Sodium 88 MCG Tablet TAKE 1 TABLET BY MOUTH EVERY DAY IN THE MORNING Oral Taking Celecoxib 200 MG Capsule TAKE 1 CAPSULE BY MOUTH EVERY DAY NEEDED FOR PAIN Oral Taking Cephalexin 500 MG Capsule 1 capsule Orally every 8 hrs Medication List reviewed and reconciled with the patient * Allergies:?AdhesiveLatexyes[ Allergies Verified] Objective: * Vitals:?Ht: 5 ft 2 in, Wt:12 0, BMI: 21.95, Shoe size:6.5-7, BP:120/80mm Hg, Ht- cm: 157.48 cm, Wt-k.43 kg. * Examination: ???Dermatologic: ?ULCER:?NOW shows complete re-epithelialization, Dorsal, IPJ,TA.? Assessment: * Assessment: 1.?Skin ulcer of toe of left foot, limited to breakdown of skin - L97.521 (Primary)???Specify :Acute problem, Stable???Notes :Response to treatment - Improvement??? Plan: * Treatment: * Procedure Codes:? * Preventive Medicine:? ??Counseling:?Discussion:?-13: Office or other [...] have encouraged the patient to call the office.?Ulcer:?PREVENTIVE STRATEGIES were reviewed with the patient to avoid recurrent ulceration. A set of verbal and written instructions regarding proper daily diabetic footcare techniques was discussed and dispensed. The patient is to pay close attention to skin hydration by maintaining proper moisturization through correct water consumption and consistent application of skin lotions/creams/ointments. They are also to perform regular visual and tactile foot inspections for any interruption in skin integrity including cracks, open lesions, and immediately report to the office any sign of infection such as redness/malodor/drainage/swelling. We discussed and recommended practices and procedures regarding regular shoe and insert evaluations for the presence of foreign bodies as well as for any irregular shoe or insert wear. We reinforced the importance for the patient to adhere to wearing their orthopedic shoes and pressure accommodative innersoles whenever walking. We stressed the significant value for the patient to remain consistent concerning their medically prescribed diet, participate in regular nonweight-bearing exercise (seated weights, exercise bike, or swimming), and keep their scheduled at risk foot care podiatric appointments. We also reviewed the possible role for additional Rx foot/leg bracing or surgical intervention when/if medically warranted.? ??Screening/Special Tests:?Fall Risk?Screening:?No falls in the past year ?FALLS: Screening for Future Fall Risk?Have you had any falls with injury in the past year??No * Follow Up:?prn * Images: * Sign off status: Completed true * Provider:?Singh Arenas DPM Date:?2023 Generated for Felipe fagan/Lisa/Humbertoitting on:?11/12/2024 09:53 AM EDT History and Physical Notes * HPI (History of Present Illness) Category Sub-Category Detail Notes Category Not es Skin problems Location: Top , 1st , Toe(s) , Left Treatments: Local care consistin g of daily distilled water wound cleanse, Medihoney topical antibiotic as recommended, application of sterile dressing, offloading/pressure reduction via rest, shoe modification, insert modification, accommodative padding, assisted ambulation via cane, and surgical debridement Examination Category Sub-Category Detail Notes Category Not es Dermatologic ULCER: NOW shows comple te re-epithelialization, Dorsal, IPJ,TA
--- OUTSIDE RECORDS SUMMARY | 2024-11-12 09:53 | XMS_ITS | Patient Health Record ---
Author Organization [facility] Abdon Wilson Address [address] [facility] tonia [place], [place] [address] Care Team Providers Care Foreclosure Paralegal Name Role Phone Atul Conway Primary Care Provider Unav ailable Singh Arenas Unavailable [phone] Allergies Allergen (clinical drug ingredient) Drug/Non Drug Allergy documented on EMR Reaction Allergy Type Onset Date Status Adhesive Unknown Allergy Active Latex Latex Unknown Allergy Active Reason For Referral No Information Medications Medication SIG (Take, Route, Frequency, Duration) Notes Start Date End Date Status Celecoxib 200 MG TAKE 1 CAPSULE BY MOUTH EVERY DAY NEEDED FOR PAIN Oral for 30 Days Active Cephalexin 500 MG 1 capsule Orally every 8 hrs for 10 days Active Levothyroxine Sodium 88 MCG TAKE 1 TABLET BY MOUTH EVERY DAY IN THE MORNING Oral for 90 Days Active Rosuvastatin Calcium 5 MG Oral for 84 Days Active Lisinopril 20 MG Oral for 90 Days Active busPIRone HCl 7.5 mg as needed Active Esomeprazole Magnesium 20 MG 1 capsule Orally Once a day Active Social History Tobacco Use: Social History [...] W/U Status Risk Notes Problem Essential hypertension (40229463) Essential hypertension (I10) Active confirmed Vital Signs Blood pressure diastolic 80 mm Hg 07/14/2024 Height 5 ft 2 in in 07/14/2024 Blood pressure systolic 120 mm Hg 07/14/2024 Weight 120 lbs 07/14/2024 BMI 21.95 kg/m2 07/14/2024 Procedures Procedure Date Ordered Date Performed Result Body Sit e 94614- Debride <25 sq cm 06/05/2024 N/A Encounters Encounter Location Date Provider Diagnosis [address] [address] 04/14/2024 Singh Dagoberto Pain in left toe(s) M79.675 ; Other hammer toe(s) (acquired), left foot M20.42 and Arthritis of joint of lesser toe, left M19.[address] [address] 05/29/2024 Singh Dagoberto Skin ulcer of toe of left foot, limited to breakdown of skin L97.521 ; Cellulitis of toe of left foot L03.032 ; Other hammer toe(s) (acquired), left foot M20.42 ; Arthritis of joint of lesser toe, left M19.072 and Pain in left toe(s) M79.[address] [address] 06/05/2024 Singh Dagoberto Skin ulcer of toe of left foot, limited to breakdown of skin L97.521 and Cellulitis of toe of left foot L03.[address] [address] 07/14/2024 Singh Dagoberto Skin ulcer of toe of left foot, limited to breakdown of skin L97.[address] [address] 01/01/2024 Singh Dagoberto [address] [address] 05/20/2024 Singh Dagoberto [address] [address] 05/29/2024 Singh Dagoberto [address] [address] 06/05/2024 Singh Arenas Assessments Encounter Date Diagnosis (ICD Code) Assessment Notes Treatment Notes Treatment Clinical Notes Section Notes 04/14/2024 Pain in left toe(s) (ICD-10 - M79.675) 04/14/2024 Other hammer toe(s) (acquired), left foot (ICD-10 - M20.42) 05/29/2024 Skin ulcer of toe of left foot, limited to breakdown of skin (ICD-10 - L97.521) Response to treatment, unresolved Patient Educated with: WOUND CARE INSTRUCTIONS.p df (WOUND CARE INSTRUCTIONS.p df) 06/05/2024 Cellulitis of toe of left foot (ICD-10 - L03.032) 06/05/2024 Skin ulcer of toe of left foot, limited to breakdown of skin (ICD-10 - L97.521) Response to treatment, improved, unresolved Patient Educated with: WOUND CARE INSTRUCTIONS.p df (WOUND CARE INSTRUCTIONS.p df) 07/14/2024 Skin ulcer of toe of left foot, limited to breakdown of skin (ICD-10 - L97.521) Response to treatment - Improvement 04/14/2024 Arthritis of joint of lesser toe, left (ICD-10 - M19.072) 05/29/2024 Cellulitis of toe of left foot (ICD-10 - L03.032) 05/29/2024 Other hammer toe(s) (acquired), left foot (ICD-10 - M20.42) 05/29/2024 Arthritis of joint of lesser toe, left (ICD-10 - M19.072) 05/29/2024 Pain in left toe(s) (ICD-10 - M79.675) 05/29/2024 Other 06/05/2024 Other 07/14/2024 Other Plan Of Treatment Pending Test Test Name Order Date X ray : Foot, left 3V 04/14/2024 X ray : Foot, left 3V 05/29/2024 90348- Debride <25 sq cm 06/05/2024 Insurance Providers Payer Name Payer Address Payer Phone Subscriber Number Group Number Insured Name Patient Relationship to Insured Coverage Start Date Coverage End Date Medicare National Govt Sv[employer] [address] [place] [address] [id number] Birgit Wiley Self - patient is the insured [facility] [address] [place] [address] [phone] [id number] Birgit Wiley Self - patient is the insured Medical (General) History Medical History History ICD Code Arthritis Knee Pain Cancer Cataracts Diverticulosis Hypertension Reflux ( GERD) thyroid Hypercholesterolemia Surgical History Surgery Date(Month/Year) Breast Surgery 2018 bunionectomy
--- OUTSIDE RECORDS SUMMARY | 2024-11-12 09:53 | XMS_ITS | Clinical Summary ---
Author Organization [facility] Address [address] [place] [address] Care Team Providers Care Senior Drupal Developer Name Role Phone LeslySimone Primary Care Provider [phone] Allergies No known active allergies Medications Medication Sig Dispensed Refills Start Date End Date Status levothyroxine (SYNTHROID, LEVOXYL) tablet 88 mcg Take 88 mcg by mouth every morning on an empty stomach. 0 Active omeprazole (PriLOSEC) 20 MG capsule Take 20 mg by mouth daily. 0 Active lisinopril (PRINIVIL,ZESTRIL) tablet 10 mg Take 10 mg by mouth daily. 0 Active amLODIPine (NORVASC) tablet 5 mg Take 5 mg by mouth daily. 0 Active busPIRone (BUSPAR) 7.5 MG tablet Take 7.5 mg by mouth as needed. 0 Active celecoxib (CeleBREX) 200 MG capsule Take 200 mg by mouth daily. 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-related osteoporosis fuentes oglesbycamelia current pathological fracture 04/08/2018 Family History Medical History Relation Name Comments Cancer Brother Relation Name Status Comments Brother Alive Prostate Ca Social History Tobacco Use Types Packs/Day Years Used Date Smoking Tobacco: Former Smokeless Tobacco: Never Alcohol Use Standard Drinks/Week Comments Yes 0 (1 standard drink = 0.6 oz pur e alcohol) occasionally Sex and Gender Information Value Date Recorded Sex Assigned at Not on file Gender Identity Not on file Sexual Orientation Not on file Last Filed Vital Signs Vital Sign Reading Time Taken Comments Blood Pressure 135/68 07/10/2018 2:26 PM EST Pulse 62 07/10/2018 2:26 PM EST Temperature 36.3 ??C (97.3 ??F) 06/30/2018 11:[address] Respiratory Rate - - Oxygen Saturation - - Inhaled Oxygen Concentration - - Weight 56.7 kg (125 lb) 07/10/2018 2:26 PM EST Height 154.9 cm (5' 1 ) 07/10/2018 2:26 PM EST Body Mass Index 23.62 07/10/2018 2:26 PM EST Plan of Treatment Health Maintenance Due Date Last Done Comments Hepatitis C Screening 1945 COVID-19 Vaccine (#1) 1950 Pneumococcal Vaccine (1 of 2 - PCV) 1951 Depression Screening 1957 Preventative Health Evaluation 1963 DTap / Tdap / Td (1 - Tdap) 1964 Shingrix-Zoster Vaccine (1 of 2) 1964 Fall Risk Assessment 2010 Osteoporosis Screening (DEXA Scan) 2010 RSV Adult > 60+ Yrs or Pregn ant (1 - 1-dose 75+ series) 2020 Influenza Vaccine (#1) 2024 Hepatitis B Vaccines Aged Out No long er eligible based on patient's age to complete this topic RSV Ped < 20 months Aged Out No longe r eligible based on patient's age to complete this topic Care Teams Senior Drupal Developer Relationship Specialty Start Date End Date Simone Grace DO [address] [place] [address] PCP - General 03/25/18
== END 2024-11-12 09:47 | disposition home or self-care (01) ==
LOC: HO.HMCC 09:02
PROVIDERS: PCP Nurse Practitioner Family; Visit Provider Nurse Practitioner Family
DX: I10 Essential (primary) hypertension (principal); E78.5 Hyperlipidemia, unspecified; S90.416A Abrasion, unspecified lesser toe(s), initial encounter

== ENCOUNTER → 2024-11-12 09:01 | Outpatient (BNVA) | payer MEDICARE, OTHER, SELFPAY | PROVIDERS: PCP Nurse Practitioner Family; Visit Provider Nurse Practitioner Family | DX: I10 Essential (primary) hypertension (principal); E78.5 Hyperlipidemia, unspecified; S90.416A Abrasion, unspecified lesser toe(s), initial encounter | CPT/HCPCS: 96127; 99212 ==

== ENCOUNTER 2024-12-01 13:25 | Outpatient (REF) | payer MEDICARE, OTHER, SELFPAY ==
--- NOTE | ~2024-12-01 | US_ITS ---
EXAMINATION: US TRIPLEX LOWER EXTREMITY, LEFT CLINICAL INFORMATION: Pain in left lower leg COMPARISON: None available. TECHNIQUE: Color-flow triplex imaging with spectral analysis and compression Doppler were performed on the left lower extremity. FINDINGS: Respiratory variation, normal compression and augmented flow are noted throughout the left lower extremity. The visualized common femoral vein, superficial femoral vein, profunda femoral vein, popliteal vein and midcalf peroneal and posterior tibial venous segments show no evidence of deep venous thrombosis. There is small left medial Hawkins's cyst measuring 5.5 x 1.5 x 5.2 cm. US/US venous duplex LE IMPRESSION: No evidence of deep venous thrombosis involving the left lower extremity. Electronically signed by: Travon Mcintosh MD 12/01/2024 01:49 PM EDT
--- OUTSIDE RECORDS SUMMARY | 2024-12-01 14:41 | XMS_ITS ---
[facility] Address [address] [facility] [address] [place], [place] [address] Care Team Providers Care Carroter Name Role Phone Atul Conway Primary Care Provider Unav ailable DagobertoSingh Unavailable [phone] Allergies Allergen (clinical drug ingredient) Drug/Non Drug [...] Ordered Date Performed Result Body Sit e 82481- Debride <25 sq cm 06/05/2024 N/A Encounters Encounter Location Date Provider Diagnosis [facility] [address] [place] [address] 06/05/2024 Singh Arenas Skin ulcer of toe [...] INSTRUCTIONS.pdf) Pending Test Test Name Order Date 53893- Debride <25 sq cm 06/05/2024 Next Appt Details Follow Up: as scheduled, Joslyn son: Progress Notes * Birgit KILLIANDOB:[birth year] (78 yo F)Acc No.[id number]:06/05/2024 Progress Note Patient:?Birgit Killian Provider:?Singh Arenas DPM :1945???Age:78 Y???Sex:Female D ate:06/05/2024 Address: [address], [place], [place] Pcp:DARÍO Clark Subjective: * Chief Complaints: * [...] left foot, limited to breakdown of skin?Procedure: 48035- Debride <25 sq cm Notes: Patient Educated with: WOUND CARE INSTRUCTIONS.pdf (WOUND CARE INSTRUCTIONS.pdf)?? * Procedure Codes:?32104 ACTIV E WOUND CARE/20 CM OR < [...] Arenas DPM Date:?2023 Generated for Felipe fagan/Lisa/Markos on:?12/01/2024 02:41 PM EDT History and Physical Notes * HPI [...]
--- OUTSIDE RECORDS SUMMARY | 2024-12-01 14:41 | XMS_ITS | Patient Health Record ---
Author Organization [facility] Abdon Wilson Address [address] [facility] [address] [place], [place] [address] Care Team Providers Care Manager Security And Safety Name Role Phone Atul Conway Primary Care Provider Unav ailable Singh Arenas Unavailable [phone] Allergies Allergen (clinical drug ingredient) Drug/Non Drug [...] W/U Status Risk Notes Problem Essential hypertension (10073110) Essential hypertension (I10) Active confirmed Vital Signs Blood pressure diastolic 80 mm Hg 07/14/2024 Height 5 ft 2 in in 07/14/2024 Blood pressure systolic 120 mm Hg 07/14/2024 Weight 120 lbs 07/14/2024 BMI 21.95 kg/m2 07/14/2024 Procedures Procedure Date Ordered Date Performed Result Body Sit e 23447- Debride <25 sq cm 06/05/2024 N/A Encounters Encounter Location Date Provider Diagnosis [address] [address] 04/14/2024 Singh Dagoberto Pain in left toe(s) M79.675 ; Other hammer toe(s) (acquired), left foot M20.42 and Arthritis of joint of lesser toe, left M19.[address] [address] 05/29/2024 Singh Dagoberto Skin ulcer of toe of left foot, limited to breakdown of skin L97.521 ; Cellulitis of toe of left foot L03.032 ; Other hammer toe(s) (acquired), left foot M20.42 ; Arthritis of joint of lesser toe, left M19.072 and Pain in left toe(s) M79.[address] [address] 06/05/2024 Singh Dagoberto Skin ulcer of toe of left foot, limited to breakdown of skin L97.521 and Cellulitis of toe of left foot L03.[address] [address] 07/14/2024 Singh Dagoberto Skin ulcer of toe of left foot, limited to breakdown of skin L97.[address] [address] 01/01/2024 Singh Dagoberto [address] [address] 05/20/2024 Singh Dagoberto [address] [address] 05/29/2024 Singh Dagoberto [address] [address] 06/05/2024 Singh Arenas Assessments Encounter Date Diagnosis (ICD Code) Assessment Notes Treatment Notes Treatment Clinical Notes Section Notes 05/29/2024 Skin ulcer of toe of left [...] L97.521) Response to treatment - Improvement 04/14/2024 Pain in left toe(s) (ICD-10 - M79.675) 04/14/2024 Other hammer toe(s) (acquired), left foot (ICD-10 - M20.42) 04/14/2024 Arthritis of joint of lesser toe, [...] X ray : Foot, left 3V 05/29/2024 84047- Debride <25 sq cm 06/05/2024 Insurance Providers Payer Name Payer Address Payer Phone Subscriber Number Group Number Insured Name Patient Relationship to Insured Coverage Start Date Coverage End Date Medicare National Govt Svcs Inc [address] [facility] [place] [address] [id number] Birgit Wiley Self - patient is the insured [facility] [address] [place] [address] [phone] [id number] Birgit Wiley Self - patient is the insured Medical (General) History Medical History History ICD Code Arthritis Knee Pain Cancer Cataracts Diverticulosis Hypertension Reflux ( GERD) thyroid Hypercholesterolemia Surgical History Surgery Date(Month/Year) Breast Surgery 2018 bunionectomy
--- OUTSIDE RECORDS SUMMARY | 2024-12-01 14:41 | XMS_ITS ---
Author [facility] Address [address] [facility] [place] [address] Care Team Providers Care Service Provider Name Role Phone Atul Conway Primary Care Provider Unav ailable Singh Arenas Unavailable [phone] REASON FOR VISIT Lt Grt toe Encounters Encounter Location Date Provider Diagnosis [facility] [place] [address] [employer] [address] 06/05/2024 Singh Arenas Plan Of Treatment No Information Progress Notes * CONSTANTINDerrellfranciscaDOB:06/[birth year] (78 yo F)Acc No.[id number]:06/05/2024 Patient:?Birgit Wiley :1945???Age:78 Y???Sex:Female Address:[address], [place] [facility] [place] [address] * true * Date:? Generated for Anai rylan/Lisa/eTransmitting on:?12/01/2024 02:40 PM EDT
--- OUTSIDE RECORDS SUMMARY | 2024-12-01 14:41 | XMS_ITS | Clinical Summary ---
Author Organization [facility] Address [address] [place] [address] Care Team Providers Care Chucker Name Role Phone LeslySimone Primary Care Provider [phone] Allergies No known active allergies Medications Medication [...] age to complete this topic Care Teams Chucker Relationship Specialty Start Date End Date Simone Grace DO [address] [place] [address] PCP - General 03/25/18
--- OUTSIDE RECORDS SUMMARY | 2024-12-01 14:41 | XMS_ITS ---
Author Organization [facility] Address [address] [facility] [address] [place] [address] Care Team Providers Care Institutional Custodian Name Role Phone Atul Conway Primary Care Provider Unav ailagus ArenasSingh Unavailable [phone] Allergies Allergen (clinical drug ingredient) Drug/Non Drug [...] W/U Status Risk Notes Problem Essential hypertension (63397211) Essential hypertension (I10) Active confirmed Vital Signs Height 5 ft 2 in in 07/14/2024 Weight 120 lbs 07/14/2024 BMI 21.95 kg/m2 07/14/2024 Blood pressure systolic 120 mm Hg 07/14/20 24 Blood pressure diastolic 80 mm Hg 024 Encounters Encounter Location Date Provider Diagnosis [facility] [place] [address] [place] [address] 07/14/2024 Singh Arenas Skin ulcer of toe [...] Notes * CONSTANTINTavia PATTONashleyDOB:[birth year] (79 yo F)Acc No.[id number]:07/14/2024 Progress Note Patient:?Tavia KILLIANricia Provider:?Singh Arenas DPM :1945???Age:79 Y???Sex:Female D ate:07/14/2024 Address:[address] [place] [address] , [place], [place] Pcp:Atul Sanz NP-TAYO Subjective: * Chief Complaints: [...] Arenas DPM Date:?2023 Generated for Felipe fagan/Lisa/Humbertoitting on:?12/01/2024 02:41 PM EDT History and Physical [...]
--- OUTSIDE RECORDS SUMMARY | 2024-12-01 14:41 | XMS_ITS | Clinical Summary ---
Author Organization [facility] Address [address] [place] [address] Phone Care Team Providers Care Holter Technician Name Role Phone Atul Sanz NP Primary Care Provider [phone] Allergies Active Allergy Reactions Criticality Noted Date Comments Aluminized Plastic 10/06/2024 Nickel 08/28/2018 Causes contact allergy Peltsld-Egy-Svk Reductase Inhibitors 10/29/2023 Medications lisinopriL (PRINIVIL,ZESTR IL) [...] nodules and how their size, shape, and change management time affect her level of suspicion for [...] of the chest in [address] [facility] and we will scan in her [facility]. All questions were answered. Assessment & Plan [...] nodules and how their size, shape, and change management time affect her level of suspicion for [...] of the chest in [address] [facility] and we will scan in her [facility]. All questions were answered. We also [...] AM EDT Office Visit Thoracic Surgery - [place] [address] [facility] [address] [place] [address] Gary Saba, PA Pulmonary nodules (Primary Dx) 10/12/2024 2:16 PM EDT - 10/12/2024 11:59 PM EDT Hospital Encounter [facility] CT Scan [address] [place] [address] Pulmonary nodules Discharge Disposition: Home or Self Care 10/06/2024 2:30 PM EDT Office Visit Gastroenterology - [address] [place] [address] Jesus Castillo MD Gastroesophageal reflux disease without esophagitis (Primary Dx); Other constipation from Last 3 Months Surgical History Surgery Date Site/Laterality Comments BREAST BIOPSY 02/20/2018 Left PROCEDURE: BX BREAST; PERC NEEDLE CORE W/IMAG GUID; COMMENT: DCIS-high grade BREAST LUMPECTOMY 03/14/2018 Left PROCEDURE: HISTORICAL BREAST LUMPECTOMY; COMMENT: remaining DCIS, ER & IA positive FOOT SURGERY Left PROCEDURE: HISTORICAL FOOT [...] Info) Description 04/12/2025 11:00 AM EDT Appointment [facility] CT Scan [address] [place] [address] 04/16/2025 1:30 PM EDT Office Visit Pulmonology - [place] [address] [facility] [address] [place] [address] Daya Ravi MD [address] [place] [address] Health Maintenance Due Date Last Done Comments [...] 3. No developing thoracic lymphadenopathy. [place] ([id number]) -------- FINAL REPORT -------- Dictated By: Smitha Gutierrez Dictated Date: 10/13/2024 08:28 ET Assigned Physician: Smitha Gutierrez Reviewed and Electronically Signed By: Smitha Gutierrez Signed Date: 10/13/2024 08:50 ET Workstation ID: [id number] Transcribed By: Self Edit Transcribed Date: 10/13/2024 08:28 ET Narrative 10/13/2024 8:50 AM EDT History: Follow-up pulmonary nodules, 6 to 8 mm. Personal history of breast carcinoma. Comparison: 06/30/24, 01/13/24 Technique: Helical volumetric imaging of the thorax was performed, using low- dose technique, without IV contrast. DLP: 171.10 mGy/cm Active Implants [place] Iterative reconstruction technique Findings: The trachea and [...] technique, without IV contrast. DLP: 171.10 mGy/cm Active Implants [place] Iterative reconstruction technique Findings: The trachea and [...] nodule in the inferior right middle lobe ([id number]) is unchanged. A 6 mm solid, noncalcified [...] 3. No developing thoracic lymphadenopathy. [place] ([id number]) -------- FINAL REPORT -------- Dictated By: Smitha Gutierrez Dictated Date: 10/13/2024 08:28 ET Assigned Physician: Smitha Gutierrez Reviewed and Electronically Signed By: Smitha Gutierrez Signed Date: 10/13/2024 08:50 ET Workstation ID: [id number] Transcribed By: Self Edit Transcribed Date: 10/13/2024 08:28 ET us Sofiya Alonso MD IMG CT PROCEDURES Final Result from Last 3 Months Insurance MEDICARE [facility] Care Teams Holter Technician Relationship Specialty Start Date End Date Atul Sanz NP [address] [facility] [place] PCP - General 06/09/19
== END 2024-12-01 13:26 | disposition home or self-care (01) ==
LOC: HO.HMGCX 13:25
PROVIDERS: PCP Nurse Practitioner Family; Visit Provider Nurse Practitioner Family
DX: M79.662 Pain in left lower leg (principal)
CPT/HCPCS: 93971

== ENCOUNTER → 2024-12-01 13:26 | Outpatient (BNV) | payer MEDICARE, OTHER, SELFPAY | PROVIDERS: PCP Nurse Practitioner Family; Visit Provider Radiology Diagnostic Radiology | DX: M79.662 Pain in left lower leg (principal) | CPT/HCPCS: 93971 ==

== ENCOUNTER 2024-12-04 07:44 | Outpatient (REF) | payer MEDICARE, OTHER, SELFPAY ==
--- OUTSIDE RECORDS SUMMARY | 2024-12-04 07:47 | XMS_ITS | Clinical Summary ---
Author Organization [facility] Address [address] [place] [address] Care Team Providers Care Civil Engineering Specialist Name Role Phone LeslySimone Primary Care Provider [phone] Allergies No known active allergies Medications Medication [...] age to complete this topic Care Teams Civil Engineering Specialist Relationship Specialty Start Date End Date Simone Grace DO [address] [place] [address] PCP - General 03/25/18
--- OUTSIDE RECORDS SUMMARY | 2024-12-04 07:47 | XMS_ITS ---
Author Organization [facility] Address [address] [facility] [address] [place] [address] Care Team Providers Care Ux Developer Designer Name Role Phone Atul Conway Primary Care Provider Unav ailagus ArenasSingh Unavailable [phone] Allergies Allergen (clinical drug ingredient) Drug/Non Drug [...] W/U Status Risk Notes Problem Essential hypertension (87523949) Essential hypertension (I10) Active confirmed Vital Signs Height 5 ft 2 in in 07/14/2024 Weight 120 lbs 07/14/2024 BMI 21.95 kg/m2 07/14/2024 Blood pressure systolic 120 mm Hg 07/14/20 24 Blood pressure diastolic 80 mm Hg 024 Encounters Encounter Location Date Provider Diagnosis [facility] [place] [address] [place] [address] 07/14/2024 Singh Arenas Skin ulcer of toe [...] Notes * CONSTANTINTavia PATTONashleyDOB:[birth year] (79 yo F)Acc No.[id number]:07/14/2024 Progress Note Patient:?Tavia KILLIANricia Provider:?Singh Arenas DPM :1945???Age:79 Y???Sex:Female D ate:07/14/2024 Address:[address] [place] [address] , [place], [place] Pcp:Atul Sanz NP-TAYO Subjective: * Chief Complaints: [...] Arenas DPM Date:?2023 Generated for Felipe fagan/Lisa/Humbertoitting on:?12/04/2024 07:47 AM EDT History and Physical Notes * [...]
--- OUTSIDE RECORDS SUMMARY | 2024-12-04 07:47 | XMS_ITS ---
Author Organization [facility] [place] Address [address] [facility] [place] [address] Care Team Providers Care Family Service Assistant Name Role Phone Atul Conway Primary Care Provider Unav ailable Singh Arenas Unavailable [phone] REASON FOR VISIT Lt Grt toe Encounters Encounter Location Date Provider Diagnosis [facility] [place] [address] [facility] [place] [address] 06/05/2024 Singh Arenas Plan Of Treatment No Information Progress Notes * CONSTANTINDerrellfranciscaDOB:[birth year] (78 yo F)Acc No.[id number]:06/05/2024 Patient:?Birgit Wiley :1945???Age:78 Y???Sex:Female Address:[address], [place] [place] [address] * true * Date:? Generated for Anai rylan/Lisa/eTransmitting on:?12/04/2024 07:47 AM EDT
--- OUTSIDE RECORDS SUMMARY | 2024-12-04 07:48 | XMS_ITS | Clinical Summary ---
Author Organization [facility] Address [address] [place] [address] Phone Care Team Providers Care Laborer Pipelines Name Role Phone Atul Sanz NP Primary Care Provider Allergies Active Allergy Reactions Criticality Noted Date Comments Aluminized Plastic 10/06/2024 Nickel 08/28/2018 Causes contact allergy Wssoeeq-Vsd-Wai Reductase Inhibitors 10/29/2023 Medications lisinopriL (PRINIVIL,ZESTR IL) [...] and how their size, shape, and change number operator time affect her level of suspicion for [...] of the chest in 6 months at [facility] and we will scan in her [facility]. All questions were answered. Assessment & [...] and how their size, shape, and change number operator time affect her level of suspicion for [...] of the chest in 3 months at [facility] and we will scan in her [place]. All questions were answered. We also [...] AM EDT Office Visit Thoracic Surgery - [place] [address] [facility] [address] [place] [id number] Gary Saba, PA Pulmonary nodules (Primary Dx) 10/12/2024 2:16 PM EDT - 10/12/2024 11:59 PM EDT Hospital Encounter [facility] CT Scan [address] [place] [address] Pulmonary nodules Discharge Disposition: Home or Self Care 10/06/2024 2:30 PM EDT Office Visit Gastroenterology - [address] [place] [address] Jesus Castillo MD Gastroesophageal reflux disease without esophagitis (Primary Dx); Other constipation from Last 3 Months Surgical History Surgery Date Site/Laterality Comments BREAST BIOPSY 02/20/2018 Left PROCEDURE: BX BREAST; PERC NEEDLE CORE W/IMAG GUID; COMMENT: DCIS-high grade BREAST LUMPECTOMY 03/14/2018 Left PROCEDURE: HISTORICAL BREAST LUMPECTOMY; COMMENT: remaining DCIS, ER & NV positive FOOT SURGERY Left PROCEDURE: HISTORICAL FOOT [...] Info) Description 04/12/2025 11:00 AM EDT Appointment [facility] CT Scan [address] [place] [address] 04/16/2025 1:30 PM EDT Office Visit Pulmonology - [place] [address] [facility] [address] [place] [phone] Daya Ravi MD [address] [place] [address] Health Maintenance Due Date Last Done Comments [...] 3. No developing thoracic lymphadenopathy. [place] ([id number]) -------- FINAL REPORT -------- Dictated By: Smitha Gutierrez Dictated Date: 10/13/2024 08:28 ET Assigned Physician: Smitha Gutierrez Reviewed and Electronically Signed By: Smitha Gutierrez Signed Date: 10/13/2024 08:50 ET Workstation ID: [id number] Transcribed By: Self Edit Transcribed Date: 10/13/2024 08:28 ET Narrative 10/13/2024 8:50 AM EDT History: Follow-up pulmonary nodules, 6 to 8 mm. Personal history of breast carcinoma. Comparison: 06/30/24, 01/13/24 Technique: Helical volumetric imaging of the thorax was performed, using low- dose technique, without IV contrast. DLP: 171.10 mGy/cm Spacebar [place] Iterative reconstruction technique Findings: The trachea and [...] technique, without IV contrast. DLP: 171.10 mGy/cm Spacebar [place] Iterative reconstruction technique Findings: The trachea and [...] nodule in the inferior right middle lobe ([id number]) is unchanged. A 6 mm solid, noncalcified [...] 3. No developing thoracic lymphadenopathy. Telerad [place] ([id number]) -------- FINAL REPORT -------- Dictated By: Smitha Gutierrez Dictated Date: 10/13/2024 08:28 ET Assigned Physician: Smitha Gutierrez Reviewed and Electronically Signed By: Smitha Gutierrez Signed Date: 10/13/2024 08:50 ET Workstation ID: [id number] Transcribed By: Self Edit Transcribed Date: 10/13/2024 08:28 ET us Sofiya Alonso MD IMG CT PROCEDURES Final Result from Last 3 Months Insurance MEDICARE [facility] Care Teams Laborer Pipelines Relationship Specialty Start Date End Date Atul Sanz NP [address] [facility] [place]ral[place] PCP - General 06/09/19
--- OUTSIDE RECORDS SUMMARY | 2024-12-04 07:48 | XMS_ITS ---
[facility] Address [address] [facility] [address] [place], [place] [address] Care Team Providers Care Miller Apprentice Name Role Phone Atul Conway Primary Care Provider Unav ailable DagobertoSingh Unavailable [phone] Allergies Allergen (clinical drug ingredient) Drug/Non Drug [...] Ordered Date Performed Result Body Sit e 77439- Debride <25 sq cm 06/05/2024 N/A Encounters Encounter Location Date Provider Diagnosis [facility] [place] [address] [place] [address] 06/05/2024 Singh Arenas Skin ulcer of toe [...] INSTRUCTIONS.pdf) Pending Test Test Name Order Date 40003- Debride <25 sq cm 06/05/2024 Next Appt Details Follow Up: as scheduled, Joslyn son: Progress Notes * Birgit KILLIANDOB:[birth year] (78 yo F)Acc No.[id number]:06/05/2024 Progress Note Patient:?Birgit Killian Provider:?Singh Arenas DPM :1945???Age:78 Y???Sex:Female D ate:06/05/2024 Address: [address], [place], [place] Pcp:DARÍO Clark Subjective: * Chief Complaints: * [...] left foot, limited to breakdown of skin?Procedure: 00732- Debride <25 sq cm Notes: Patient Educated with: WOUND CARE INSTRUCTIONS.pdf (WOUND CARE INSTRUCTIONS.pdf)?? * Procedure Codes:?77457 ACTIV E WOUND CARE/20 CM OR < [...] Arenas DPM Date:?2023 Generated for Felipe fagan/Lisa/Markos on:?12/04/2024 07:47 AM EDT History and Physical [...]
--- OUTSIDE RECORDS SUMMARY | 2024-12-04 07:48 | XMS_ITS | Patient Health Record ---
Author Organization [facility] Address [address] [facility] tonia [place], [place] [address] Care Team Providers Care Contact Lens Fitter Name Role Phone Atul Conway Primary Care Provider Unav ailable Singh Arenas Unavailable [phone] Allergies Allergen (clinical drug ingredient) Drug/Non Drug [...] W/U Status Risk Notes Problem Essential hypertension (85617539) Essential hypertension (I10) Active confirmed Vital Signs Blood pressure diastolic 80 mm Hg 07/14/2024 Height 5 ft 2 in in 07/14/2024 Blood pressure systolic 120 mm Hg 07/14/2024 Weight 120 lbs 07/14/2024 BMI 21.95 kg/m2 07/14/2024 Procedures Procedure Date Ordered Date Performed Result Body Sit e 95759- Debride <25 sq cm 06/05/2024 N/A Encounters Encounter Location Date Provider Diagnosis [address] [address] 04/14/2024 Singh Dagoberto Pain in left toe(s) M79.675 ; Other hammer toe(s) (acquired), left foot M20.42 and Arthritis of joint of lesser toe, left M19.[address] [address] 05/29/2024 Singh Dagoberto Skin ulcer of toe of left foot, limited to breakdown of skin L97.521 ; Cellulitis of toe of left foot L03.032 ; Other hammer toe(s) (acquired), left foot M20.42 ; Arthritis of joint of lesser toe, left M19.072 and Pain in left toe(s) M79.[address] [address] 06/05/2024 Singh Dagoberto Skin ulcer of toe of left foot, limited to breakdown of skin L97.521 and Cellulitis of toe of left foot L03.[address] [address] 07/14/2024 Singh Dagoberto Skin ulcer of toe of left foot, limited to breakdown of skin L97.[address] [address] 01/01/2024 Singh Dagoberto [address] [address] 05/20/2024 Singh Dagoberto [address] [address] 05/29/2024 Singh Dagoberto [address] [address] 06/05/2024 Singh Arenas Assessments Encounter Date Diagnosis [...] X ray : Foot, left 3V 05/29/2024 44441- Debride <25 sq cm 06/05/2024 Insurance Providers Payer Name Payer Address Payer Phone Subscriber Number Group Number Insured Name Patient Relationship to Insured Coverage Start Date Coverage End Date Medicare National [employer] [address] [place] [address] [id number] Birgit Wiley Self - patient is the insured [facility] ([facility]) [address] [place] [address] [phone] [id number] Birgit Wiley Self - patient is the insured Medical (General) History Medical History History ICD Code Arthritis Knee Pain Cancer Cataracts Diverticulosis Hypertension Reflux ( GERD) thyroid Hypercholesterolemia Surgical History Surgery Date(Month/Year) Breast Surgery 2018 bunionectomy
[2024-12-04 09:56] LABS: MANUAL DIFF FLAG NO
[2024-12-04 10:08] LABS: Basophils Percent Auto 0.7 % (0-2); Eosinophils Absolute Auto 0.3 X10*3/uL (0.0-0.4); Eosinophils Percent Auto 5.1 % (0-4); Hematocrit 40.5 % (37.0-47.0); Hemoglobin 13.5 g/dl (12.0-16.0); Imm Gran Abs Auto 0.02 X10*3/uL (0.00-0.03); Imm Gran Pct Auto 0.4 % (0.0-0.4); Lymphocytes Absolute Auto 1.3 X10*3/uL (1.2-4.9); Lymphocytes Percent Auto 23.1 % (20-40); Mean Corpuscular HGB Conc 33.3 g/dl (31.0-35.0); Mean Corpuscular Volume 93.1 fL (80.0-98.0); Mean Platelet Volume 9.9 fL (9.4-12.3); Monocytes Absolute Auto 0.6 X10*3/uL (0.1-1.2); Monocytes Percent Auto 10.8 % (2-11); Neutrophils Absolute Auto 3.3 x10*3/uL (2.0-8.3); Neutrophils Percent Auto 59.9 % (45-73); Platelet Count 230 X10*3/uL (160-400); Red Blood Count 4.35 X10*6/uL (4.20-5.50); Red Cell Distribution Width 12.4 % (11.0-16.0); White Blood Count 5.5 X10*3/uL (4.8-10.8)
[2024-12-04 10:32] LABS: Alanine Aminotransferase 16 U/L (0-31); Albumin Level 3.9 g/dL (3.5-5.0); Alkaline Phosphatase 51 U/L (39-117); Anion Gap 10 (12-20); Aspartate Amino Transferase 24 U/L (5-31); Bilirubin Total 0.5 mg/dL (0.0-1.0); Blood Urea Nitrogen 12 mg/dL (9-16); Calcium 9.2 mg/dL (8.4-10.2); Carbon Dioxide 28 mmol/L (22-29); Chloride 105 mmol/L (96-108); Cholesterol 220 mg/dL (<200); Estimated Glomerular Filt Rate > 60; Glucose Fasting 110 mg/dL (60-99); HDL Cholesterol 79 mg/dL (>40); LDL Cholesterol Calculated 127 mg/dL (<100); Potassium 3.9 mmol/L (3.3-5.1); Sodium 139 mmol/L (135-145); Total Protein 6.3 g/dL (6.5-8.0); Triglycerides 73 mg/dL (<150)
[2024-12-04 10:35] LABS: TSH reflex Free T4 1.32 uIU/mL (0.32-4.0)
[2024-12-04 13:36] LABS: Appearance Urine Clear; Color Urine Yellow; Glucose Urine UA Negative (Negative); Leukocyte Esterase Urine Trace (Negative); Nitrite Urine Negative (Negative); UMIC TRIGGER UACC YES; Urine Blood Negative (Negative); Urine Ketones Negative (Negative); Urine Protein Negative (Neg-Trace)
[2024-12-04 13:41] LABS: Bacteria Urine None Seen (None Seen); Hyaline Casts Urine 0-2 /LPF (0-2); RBC Urine 0-2 /HPF (0-2); Squamous Epithelial Cell Urine 0-2 /HPF (0-2); WBC Urine 0-5 /HPF (0-5)
== END 2024-12-04 07:45 | disposition home or self-care (01) ==
LOC: HO.HMGCLDS 07:44
PROVIDERS: PCP Nurse Practitioner Family; Visit Provider Nurse Practitioner Family
DX: I10 Essential (primary) hypertension (principal); E78.5 Hyperlipidemia, unspecified
CPT/HCPCS: 36415; 80053; 80061; 81001; 84443; 85025

== ENCOUNTER 2024-12-14 09:16 | Outpatient (AMB) | payer MEDICARE, OTHER, SELFPAY ==
[2024-12-14 09:19] VITALS: BP 132/80; PULSE 88; TEMP 36.6; O2SAT 94; BMI 22.3
--- NOTE | 2024-12-14 09:19 | A.OFFPC_ITS ---
Vital Signs 12/14/24 09:19 Height 5 ft 2 in Weight 122 lb BMI 22.3 BP 132/80 Blood Pressure Location Lt brachial Position Sitting Pulse 88 Pulse Source Pulse Oximeter Temp 97.9 F Temp Source Oral Pulse Oximetry (%) 94 Oxygen Delivery Method Room Air Intake Visit Reasons: PE Bleach Maker Required: No Accompanied by: Self / Same As Patient Allergies Pjybscd-JDF-WjB Reductase Inhibitor Allergy (Mild, Verified 12/14/24 09:24) cannot tolerate Medication List - Last Reconciled 12/14/24 by MELISSA Holland- buspirone 7.5 mg PO DAILY celecoxib (Celebrex) 200 mg PO DAILY PRN esomeprazole magnesium 20 mg PO DAILY levothyroxine 88 mcg PO QAM lisinopril 20 mg PO DAILY 90 days rosuvastatin 5 mg PO 3XW Tobacco use date assessed: 11/12/24 Fall risk assessment: No Falls in past year Last assessed Fall Risk: 12/14/24 Dental Screening Dental Screen Date: 11/12/24 HPI PE HPI Details History of Present Illness The patient is a 79-year-old female presenting for a routine physical examination and assessment of ongoing conditions. 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 Her prescribed regimen for anxiety includes intermittent use of buspirone, although she has been advised to use it more consistently for better management outcomes, rather than just PRN. She follows up with a material lister for her gastrointestinal distress, and her recent colonoscopy is current, with no additional procedures needed at this time unless new issues develop. Additionally, her bone health is under the care of a water well driller, providing routine bone density monitoring. There was a noted elevation in her fasting blood sugar, prompting guidance on managing carbohydrate consumption. Hx of gallbladder polyp, will re-image in 6 months Health Maintenance - Mammogram up to date - Colonoscopy up to date; no further florencia dy recommended at present unless an acute issue arises. - Dietary discussion focusing on reducin g intake of white and fluffy carbohydrates due to elevated fasting blood sugar. Social History - Uses buspirone intermittently for anxi ety. - Undergoing bone density monitoring thr ough a water well driller. - Receives regular care from a gastroent erologist for gastrointestinal issues. Review of Systems - Musculoskeletal: Reports left knee bell n associated with a Hawkins's cyst. - Gastrointestinal: Denies recent gastro intestinal procedures due to lack of acute problems. - Psychological: Reports ongoing anxiety . Physical Exam General: Cooperative, healthy appearing, comfortable, no acute distress and well developed Orientation: Patient oriented x3 Limitations: No limitations Head: Normal to inspection Ears: Hearing grossly normal bilaterally Nose: Normal external nose present Face and sinus: Normal facial exam Eyes: Appearance normal, both eyes and all related structures Neck: Normal visual inspection and Yes full ROM Respiratory: Normal respiratory effort and able to speak in complete sentences. Clear to auscultation bilaterally Cardiovascular: Regular rate and rhythm. Normal S1 and S2 GI: Normal to inspection. Soft to palpation and nontender Skin: No rashes or lesions noted Neuro: Patient oriented x3 Extremities: Ongoing left knee pain with a Hawkins's cyst. Normal to inspection otherwise. Results Plan I recommended that the patient start taking buspirone regularly at 5 mg twice daily to better manage her anxiety. I referred her to orthopedics for evaluation of her persistent left knee pain secondary to a Hawkins?s cyst. To address her elevated fasting blood sugar, dietary modifications focusing on reducing carbohy drate intake were advised. Her gastrointestinal health remains stable under her material lister's care, and her colonoscopy is current. Bone health is managed by her water well driller through regular bone density monitoring. Discussion Notes During our visit, we discussed the management of the patient's anxiety, recommending a consistent dosing schedule for buspirone to enhance efficacy. I explained the need for an orthopedic evaluation to address the persistent pain caused by the Hawkins's cyst in her left knee. We also reviewed dietary adjustments to mitigate elevated fasting blood sugar levels, suggesting a reduction in carbohydrate consumption. Clear guidance was provided on the ongoing monitoring of her gastrointestinal and bone health, and she was reassured about her current health status in these areas. The patient was receptive to these recommendations and understands the importance of follow-up care. Patient Instructions - Take buspirone 5 mg twice daily as dis cussed. - Reduce intake of white and fluffy carb ohydrate-rich foods. - Follow up with the orthopedic speciali st for knee pain evaluation. - Maintain appointments with the gastroe nterologist and water well driller for ongoing care. - Return to the clinic for fasting blood sugar re-evaluation as discussed. [facility] Medical History (Updated 12/14/24 @ 10:17 by MELISSA Holland-TAYO) Hx of radiation therapy COVID-19 vaccine series completed Arthritis Osteoarthritis DDD (degenerative disc disease) Dyskinesia of gallbladder GERD (gastroesophageal reflux disease) Ductal carcinoma in situ (DCIS) of left breast Dyslipidemia Anxiety Osteopenia HTN (hypertension) Hypothyroid Surgical History Hx of left cataract extraction History of esophagogastroduodenoscopy (EGD) Hx of blepharoplasty Breast cancer History of hammer toe correction Family History Father HTN (hypertension) Mother No problems noted. Social History Housing: [facility] Are you a primary acute care assistant to a significant other at home: No Do you presently have visiting nurse or other home services: No Alcohol intake: current Patient Tobacco Use Status: Former Tobacco user Tobacco use type: Cigarette e-Cigarette/Vaping Use: Never Used Second Hand Smoke Exposure: No Advance Directives Date on File: 05/15/21 Current occupational status: retired Cognitive needs: No Hearing needs: No Vision needs: No Questionnaire PHQ-9 Over the last 2 weeks, how often have you been bothered by any of the following problems? 1. Little interest or pleasure in doing things: not at all 2. Feeling down, depressed, or hopeless: not at all 3. Trouble falling or staying asleep, or sleeping too much: not at all 4. Feeling tired or having little energy: not at all 5. Poor appetite or overeating: not at all 6. Feeling bad about yourself - or that you are a failure or have let yourself or your family down: not at all 7. Trouble concentrating on things, such as reading the newspaper or watching television: not at all 8. Moving or speaking so slowly that other people could have noticed. Or the opposite - being so fidgety or restless that you have been moving around a lot more than usual: not at all 9. Thoughts that you would be better off or of hurting yourself in some way: not at all Total score: 0 Depression Screening Interpretation: Negative Depression Screening Done: Yes 39008 - PHQ-9 Billing: Yes Source: Developed by Drs. Joselito Kline, Gemini Sapp, Alexander Gould and colleagues, with an educational william from [employer]. Thrive Questionnaire Date Thrive assessed: 12/14/24 I am a: Patient What is your living situation today?: I have a steady place to live Within the past 12 months, did the food you bought not last and you didn't have the money to get more?: Never true Within the past 12 months, did you worry whether your food would run out before you got money to buy more?: Never true Do you have trouble paying for medicines?: No Do you have trouble getting transportation to medical appointments?: No Do you have trouble paying your heating and electricity bill?: No Do you have trouble taking care of your child, family member or friend?: No Do you have trouble with day-to-day activities such as bathing, preparing meals, shopping, managing finances, etc.?: No Are you currently unemployed and looking for a job?: No Are you interested in more education?: No Please select the resources that you would like help with: None Currently or been in a relationship where the following occur: No concerns reported THRIVE Score: 0 AUDIT C Alcohol Use Questionnaire (AUDIT-C) 1. How often do you have a drink containing alcohol?: 2-3 times a week 2. How many drinks containing alcohol do you have on a typical day when you are drinking?: 1 or 2 3. How often do you have six or more drinks on one occasion?: Never Total Score: 3 Score Reviewed/Action Taken: Yes BAIRON-7 AMB Questionnaire BAIRON-7 Date BAIRON - 7 assessed: 12/14/24 Feeling nervous, anxious, or on edge: 0 = Not at all Not being able to stop or control worryin = Not at all Worrying too much about different things: 0 = Not at all Trouble relaxin = Not at all Being so restless that it is hard to sit still: 0 = Not at all Becoming easily annoyed or irritable: 0 = Not at all Feeling afraid as if something awful might happen: 0 = Not at all Total BAIRON-7 score (0-4 normal; 5-9 mild; 10-14 moderate; 15-21 severe): 0 Source: Developed by Drs. Joselito Kline, Gemini Sapp, Alexander Gould and colleagues, with an educational william from [employer]. BAIRON-7 Assessment Billing BAIRON-7 Assessment Tool: BAIRON-7 Assessment 54626 Physical exam (Primary Care) Vital Signs: Last Vital Signs Temp 97.9 F 12/14/24 09:19 Pulse 88 12/14/24 09:19 BP 132/80 12/14/24 09:19 Pulse Ox 94 12/14/24 09:19 Oxygen Delivery Method Room Air 12/14/24 09:19 BMI result Body Mass Index 22.3 Tobacco/Smoking Status: Tobacco use Status Tobacco use date assessed 11/12/24 12/14/24 09:19 Patient Tobacco Use Status Former Tobacco user 12/14/24 09:19 Tobacco use type Cigarette 12/14/24 09:19 e-Cigarette/Vaping Use Never Used 12/14/24 09:19 PHQ-9: PHQ-9 Score PHQ-9: Total score 0 12/14/24 09:28 Depression Screening Interpretation: Negative Thrive Assessment: Date of Thrive Assessment Date Thrive assessed 12/14/24 12/14/24 09:28 Currently or been in a relationship where the following occur: No concerns reported Coding Level of Care Code Est Pt Prev Care >65y(80815) Diagnoses Gallbladder polyp K82.4 Left knee pain M25.562 Dyslipidemia E78.5 Anxiety F41.9 Physical exam Z00.00 Additional Codes BAIRON-7 Assessment Billing - BAIRON-7 Assessment Tool: BAIRON-7 Assessment 08893 ([id number]) PHQ-9 - 71404 - PHQ-9 Billing: Yes ([id number]) Assessment & Plan Assessment & Plan (1) Gallbladder polyp: Code(s): K82.4 - Cholesterolosis of gallbladder Category: Medical (2) Left knee pain: Code(s): M25.562 - Pain in left knee Category: Medical (3) Dyslipidemia: Code(s): E78.5 - Hyperlipidemia, unspecified Category: Medical (4) Anxiety: Code(s): F41.9 - Anxiety disorder, unspecified Category: Medical (5) Physical exam: Code(s): Z00.00 - Encounter for general adult medical examination without abnormal findings Category: Medical Plan . Orders: Orders Comprehensive [place]. Panel Fast Today E78.5 - Hyperlipidemia, unspecified US abdomen complete 6 Months K82.4 - Cholesterolosis of gallbladder Lipid Panel Today E78.5 - Hyperlipidemia, unspecified Referrals Orthopedics Referral M25.562 - Pain in left knee Medications: Changed From buspirone 7.5 mg PO DAILY 180 tabs 1RF Anxiety To buspirone 5 mg PO BID 30 days 60 tabs 2RF Anxiety
--- OUTSIDE RECORDS SUMMARY | 2024-12-14 09:28 | XMS_ITS ---
Author Organization [facility] Address [address] [facility] [place] [address] Care Team Providers Care Account Officer Name Role Phone Atul Conway Primary Care Provider Unav ailagus ArenasSingh Unavailable [phone] Allergies Allergen (clinical drug ingredient) Drug/Non Drug [...] W/U Status Risk Notes Problem Essential hypertension (64145223) Essential hypertension (I10) Active confirmed Vital Signs Height 5 ft 2 in in 07/14/2024 Weight 120 lbs 07/14/2024 BMI 21.95 kg/m2 07/14/2024 Blood pressure systolic 120 mm Hg 07/14/20 24 Blood pressure diastolic 80 mm Hg 024 Encounters Encounter Location Date Provider Diagnosis [facility] [place] [address] [place] [address] 07/14/2024 Singh Arenas Skin ulcer of toe [...] Notes * CONSTANTINTavia PATTONashleyDOB:[birth year] (79 yo F)Acc No.[id number]:07/14/2024 Progress Note Patient:?Tavia KILLIANricia Provider:?Singh Arenas DPM :1945???Age:79 Y???Sex:Female D ate:07/14/2024 Address:[address] [place] [address] , [place], [place] Pcp:Atul Sanz NP-TAYO Subjective: * Chief Complaints: [...] Arenas DPM Date:?2023 Generated for Felipe fagan/Lisa/Humbertoitting on:?12/14/2024 09:28 AM EDT History and Physical Notes * [...]
--- OUTSIDE RECORDS SUMMARY | 2024-12-14 09:28 | XMS_ITS | Clinical Summary ---
Author Organization [facility] Address [address] [place] [address] Care Team Providers Care Inside Sales Consultant Name Role Phone LeslySimone Primary Care Provider [phone] Allergies No known active allergies Medications Medication [...] age to complete this topic Care Teams Inside Sales Consultant Relationship Specialty Start Date End Date Simone Grace DO [address] [place] [address] PCP - General 03/25/18
--- OUTSIDE RECORDS SUMMARY | 2024-12-14 09:28 | XMS_ITS ---
Author Organization [facility] Address [address] [facility] Dontrell randall [place], [place] [address] Care Team Providers Care Ironworker Name Role Phone Atul Conway Primary Care Provider Unav ailable DagobertoSingh Unavailable [phone] Allergies Allergen (clinical drug ingredient) Drug/Non Drug [...] Ordered Date Performed Result Body Sit e 71824- Debride <25 sq cm 06/05/2024 N/A Encounters Encounter Location Date Provider Diagnosis [facility] [place] [address] [place] [address] 06/05/2024 Singh Arenas Skin ulcer of toe [...] INSTRUCTIONS.pdf) Pending Test Test Name Order Date 06767- Debride <25 sq cm 06/05/2024 Next Appt Details Follow Up: as scheduled, Joslyn son: Progress Notes * Birgit KILLIANDOB:[birth year] (78 yo F)Acc No.[id number]:06/05/2024 Progress Note Patient:?Birgit Killian Provider:?Singh Arenas DPM :1945???Age:78 Y???Sex:Female D ate:06/05/2024 Address: [address], [place], [place] Pcp:DARÍO Clark Subjective: * Chief Complaints: * [...] left foot, limited to breakdown of skin?Procedure: 50687- Debride <25 sq cm Notes: Patient Educated with: WOUND CARE INSTRUCTIONS.pdf (WOUND CARE INSTRUCTIONS.pdf)?? * Procedure Codes:?61624 ACTIV E WOUND CARE/20 CM OR < [...] Arenas DPM Date:?2023 Generated for Felipe fagan/Lisa/Markos on:?12/14/2024 09:28 AM EDT History and Physical [...]
--- OUTSIDE RECORDS SUMMARY | 2024-12-14 09:28 | XMS_ITS | Patient Health Record ---
Author Organization [facility] Address [address] [facility] tonia [place], [place] [address] Care Team Providers Care Range Mounter Name Role Phone Atul Conway Primary Care Provider Unav ailable Singh Arenas Unavailable [phone] Allergies Allergen (clinical drug ingredient) Drug/Non Drug [...] W/U Status Risk Notes Problem Essential hypertension (17126620) Essential hypertension (I10) Active confirmed Vital Signs Blood pressure diastolic 80 mm Hg 07/14/2024 Height 5 ft 2 in in 07/14/2024 Blood pressure systolic 120 mm Hg 07/14/2024 Weight 120 lbs 07/14/2024 BMI 21.95 kg/m2 07/14/2024 Procedures Procedure Date Ordered Date Performed Result Body Sit e 77145- Debride <25 sq cm 06/05/2024 N/A Encounters Encounter Location Date Provider Diagnosis [address] [address] 04/14/2024 Singh Dagoberto Pain in left toe(s) M79.675 ; Other hammer toe(s) (acquired), left foot M20.42 and Arthritis of joint of lesser toe, left M19.[address] [address] 05/29/2024 Singh Dagoberto Skin ulcer of toe of left foot, limited to breakdown of skin L97.521 ; Cellulitis of toe of left foot L03.032 ; Other hammer toe(s) (acquired), left foot M20.42 ; Arthritis of joint of lesser toe, left M19.072 and Pain in left toe(s) M79.[address] [address] 06/05/2024 Singh Dagoberto Skin ulcer of toe of left foot, limited to breakdown of skin L97.521 and Cellulitis of toe of left foot L03.[address] [address] 07/14/2024 Singh Dagoberto Skin ulcer of toe of left foot, limited to breakdown of skin L97.[address] [address] 01/01/2024 Singh Dagoberto [address] [address] 05/20/2024 Singh Dagoberto [address] [address] 05/29/2024 Singh Dagoberto [address] [address] 06/05/2024 Singh Arenas Assessments Encounter Date Diagnosis [...] X ray : Foot, left 3V 05/29/2024 51368- Debride <25 sq cm 06/05/2024 Insurance Providers Payer Name Payer Address Payer Phone Subscriber Number Group Number Insured Name Patient Relationship to Insured Coverage Start Date Coverage End Date Medicare National Govt Svcs Inc [address] [facility] [address] [id number] Birgit Wiley Self - patient is the insured [facility] ([facility]) [address] [place] [address] [phone] [id number] Birgit Wiley Self - patient is the insured Medical (General) History Medical History History ICD Code Arthritis Knee Pain Cancer Cataracts Diverticulosis Hypertension Reflux ( GERD) thyroid Hypercholesterolemia Surgical History Surgery Date(Month/Year) Breast Surgery 2018 bunionectomy
--- OUTSIDE RECORDS SUMMARY | 2024-12-14 09:28 | XMS_ITS | Clinical Summary ---
Author Organization [facility] Address [address] [place] [address] Phone Care Team Providers Care Gear Straightener Name Role Phone Atul Sanz NP Primary Care Provider Allergies Active Allergy Reactions Criticality Noted Date Comments Aluminized Plastic 10/06/2024 Nickel 08/28/2018 Causes contact allergy Rweylyq-Zry-Ugx Reductase Inhibitors 10/29/2023 Medications lisinopriL (PRINIVIL,ZESTR IL) [...] nodules and how their size, shape, and private branch exchange installer time affect her level of suspicion for [...] of the chest in 6 months at [facility] and we will scan in her [facility]. All questions were answered. Assessment [...] nodules and how their size, shape, and private branch exchange installer time affect her level of suspicion for [...] of the chest in 3 months at [facility] and we will scan in her [facility]. All questions were answered. We also [...] AM EDT Office Visit Thoracic Surgery - [place] [address] [facility] [address] [place] [phone] Gary Saba, PA Pulmonary nodules (Primary Dx) 10/12/2024 2:16 PM EDT - 10/12/2024 11:59 PM EDT Hospital Encounter [facility] Scan [address] [place] [address] Pulmonary nodules Discharge Disposition: Home or Self Care 10/06/2024 2:30 PM EDT Office Visit Gastroenterology - [address] [place] [address] Jesus Castillo MD Gastroesophageal reflux disease without esophagitis (Primary Dx); Other constipation from Last 3 Months Surgical History Surgery Date Site/Laterality Comments BREAST BIOPSY 02/20/2018 Left PROCEDURE: BX BREAST; PERC NEEDLE CORE W/IMAG GUID; COMMENT: DCIS-high grade BREAST LUMPECTOMY 03/14/2018 Left PROCEDURE: HISTORICAL BREAST LUMPECTOMY; COMMENT: remaining DCIS, ER & IN positive FOOT SURGERY Left PROCEDURE: HISTORICAL FOOT [...] Info) Description 04/12/2025 11:[address] [facility] Scan [address] [place] [address] 04/16/2025 1:30 PM EDT Office Visit Pulmonology - [place] [address] [facility] [address] [place] [address] Daya Ravi MD [address] [place] [address] Health Maintenance Due Date Last Done Comments [...] 3. No developing thoracic [place] ([id number]) -------- FINAL REPORT -------- Dictated By: Smitha Gutierrez Dictated Date: 10/13/2024 08:28 ET Assigned Physician: Smitha Gutierrez Reviewed and Electronically Signed By: Smitha Gutierrez Signed Date: 10/13/2024 08:50 ET Workstation ID: [id number] Transcribed By: Self Edit Transcribed Date: 10/13/2024 08:28 ET Narrative 10/13/2024 8:50 AM EDT History: Follow-up pulmonary nodules, 6 to 8 mm. Personal history of breast carcinoma. Comparison: 06/30/24, 01/13/24 Technique: Helical volumetric imaging of the thorax was performed, using low- dose technique, without IV contrast. DLP: 171.10 mGy/cm [employer] Casey Iterative reconstruction technique Findings: The trachea and [...] technique, without IV contrast. DLP: 171.10 mGy/cm [employer] [place] Iterative reconstruction technique Findings: The trachea and [...] nodule in the inferior right middle lobe ([id number]) is unchanged. A 6 mm solid, noncalcified [...] 3. No developing thoracic lymphadenopathy. [place]ad [place] ([id number]) -------- FINAL REPORT -------- Dictated By: Smitha Gutierrez Dictated Date: 10/13/2024 08:28 ET Assigned Physician: Smitha Gutierrez Reviewed and Electronically Signed By: Smitha Gutierrez Signed Date: 10/13/2024 08:50 ET Workstation ID: [id number] Transcribed By: Self Edit Transcribed Date: 10/13/2024 08:28 ET us Sofiya Alonso MD IMG CT PROCEDURES Final Result from Last 3 Months Insurance MEDICARE [facility] Care Teams Gear Straightener Relationship Specialty Start Date End Date Atul Sanz NP [address] [facility] [place] PCP - General 06/09/19
--- OUTSIDE RECORDS SUMMARY | 2024-12-14 09:28 | XMS_ITS ---
[facility] Address [address] [facility] [place] [address] Care Team Providers Care Bat Person Name Role Phone Atul Conway Primary Care Provider Unav ailable Singh Arenas Unavailable [phone] REASON FOR VISIT Lt Grt toe Encounters Encounter Location Date Provider Diagnosis [facility] [place] [address] [place] [address] 06/05/2024 Singh Arenas Plan Of Treatment No Information Progress Notes * CONSTANTIN TaviamarkelfranciscaDOB:[birth year] (78 yo F)Acc No.[id number]:06/05/2024 Patient:?Birgit Wiley :1945???Age:78 Y???Sex:Female Address:[address], [place] [facility] [place] [address] * true * Date:? Generated for Printi rylan/Lisa/eTransmitting on:?12/14/2024 09:28 AM EDT
== END 2024-12-14 11:31 | disposition home or self-care (01) ==
LOC: HO.HMCC 09:16
PROVIDERS: PCP Nurse Practitioner Family; Visit Provider Nurse Practitioner Family
DX: Z00.00 Encounter for general adult medical examination without abnormal findings (principal); K82.4 Cholesterolosis of gallbladder; M25.562 Pain in left knee; E78.5 Hyperlipidemia, unspecified; F41.9 Anxiety disorder, unspecified

== ENCOUNTER → 2024-12-14 09:16 | Outpatient (BNVA) | payer MEDICARE, OTHER, SELFPAY | PROVIDERS: PCP Nurse Practitioner Family; Visit Provider Nurse Practitioner Family | DX: Z00.00 Encounter for general adult medical examination without abnormal findings (principal); K82.4 Cholesterolosis of gallbladder; E78.5 Hyperlipidemia, unspecified; F41.9 Anxiety disorder, unspecified; M25.562 Pain in left knee | CPT/HCPCS: 96127; 99397 ==

== ENCOUNTER 2025-01-20 13:04 | Outpatient (REF) | payer MEDICARE, OTHER, SELFPAY ==
--- OUTSIDE RECORDS SUMMARY | 2025-01-20 15:18 | XMS_ITS | Clinical Summary ---
Author Organization [facility] Address [address] [place] [address] Care Team Providers Care Rfid Engineer Name Role Phone LeslySimone Primary Care Provider [phone] Allergies No known active allergies Medications Medication [...] 62 07/10/2018 2:26 PM EST Temperature 36.3 C (97.3 F) 06/30/2018 11:20 AM EST Respiratory Rate - - Oxygen Saturation - [...] - 1-dose 75+ series) 2020 Influenza Vaccine (Season Ended) 2025 Hepatitis B Vaccines Aged Out No long er eligible based on patient's age to complete this topic RSV Ped < 20 months Aged Out No longe r eligible based on patient's age to complete this topic Care Teams Rfid Engineer Relationship Specialty Start Date End Date Simone Grace DO [address] [place] [address] PCP - General 03/25/18
== END 2025-01-20 13:05 | disposition home or self-care (01) ==
LOC: HO.SH 13:04
PROVIDERS: Visit Provider Nurse Practitioner Family
DX: Z01.118 Encounter for examination of ears and hearing with other abnormal findings (principal); H90.3 Sensorineural hearing loss, bilateral
CPT/HCPCS: 92557

== ENCOUNTER 2025-02-03 08:08 | Outpatient (REF) | payer MEDICARE, OTHER, SELFPAY ==
--- OUTSIDE RECORDS SUMMARY | 2025-02-04 08:15 | XMS_ITS | Clinical Summary ---
Author Organization [facility] Address [address] [place] [address] Phone Care Team Providers Care Elevating Grader Operator Name Role Phone Atul Sanz NP Primary Care Provider Allergies Active Allergy Reactions Criticality Noted Date Comments Aluminized Plastic 10/06/2024 Nickel 08/28/2018 Causes contact allergy Kxoxevs-Tlv-Xqr Reductase Inhibitors 10/29/2023 Medications lisinopriL (PRINIVIL,ZESTR IL) [...] nodules and how their size, shape, and tire changer time affect her level of suspicion for [...] of the chest in 6 months at [facility] and we will scan in her [facility]. All questions were answered. Assessment & [...] nodules and how their size, shape, and tire changer time affect her level of suspicion for [...] of the chest in 3 months at [facility] and we will scan in her [facility]. All questions were answered. We also [...] indeed reflux related. Hypothyroidism 07/10/2019 Osteopenia 10/14/2018 Surgical History Surgery Date Site/Laterality Comments BREAST BIOPSY 02/20/2018 Left PROCEDURE: BX BREAST; PERC NEEDLE CORE W/IMAG GUID; COMMENT: DCIS-high grade BREAST LUMPECTOMY 03/14/2018 Left PROCEDURE: HISTORICAL BREAST LUMPECTOMY; COMMENT: remaining DCIS, ER & [place] positive FOOT SURGERY Left PROCEDURE: HISTORICAL FOOT SURGERY; COMMENT: bunionectomy EYE SURGERY Bilateral PROCEDURE: HISTORICAL EYE SURGERY; COMMENT: blepharopasty OTHER SURGICAL HISTORY PROCEDURE: HISTORY OTHER; COMMENT: uterine polypectomy Medical History Medical History Date Comments GE reflux DX:GE reflux Hypertension DX:Hypertension Osteopenia DX:Osteopenia Anxiety DX:Anxiety History of left breast cancer 10/14/2018 DX :History of left breast cancer; COMMENT: 2018 Estrogen receptor positive, S/p lumpectomy-declined Tamoxifen or [...] 72 10/21/2024 9:56 AM EDT Temperature 36.9 C (98.5 F) 10/21/2024 9:56 AM EDT Respiratory Rate 16 10/21/2024 9:56 AM EDT [...] Care Team (Late st Contact Info) Description 03/08/2025 11:15 AM EDT [facility]ointment [facility] [address] [place] [address] 04/12/2025 11:00 AM EDT Appointment [facility] CT Scan [address] [place] [phone] 04/16/2025 1:30 PM EDT Office Visit Pulmonology - [place] [address] [facility] [address] [place] [address] Daya Ravi MD [address] [place] [address] Health Maintenance Due Date Last Done Comments DTaP,Tdap,and Td Vaccines (1 - Tdap) 1964 COVID-19 Vaccine (3 - Moderna risk series) 10/18/2020 09/20/2020, 08/23/2020 Cholesterol Screening (Lipid Panel) 07/07/2022 Depression Screening 07/07/2022 Falls Risk Assessment 07/07/2022 Hepatitis C Screening 07/07/2022 Medicare Annual Wellness Visit 07/07/2022 Osteoporosis Screening (Bone Density Screening) 07/07/2022 Social Influencers of Health Screening 07/07/2022 Hypertension/CHF/CAD Annual BMP Blood Test 07/11/2022 Influenza Vaccine (#1) 2025 , 04/25/2023, 04/27/2022, Additional history exists Zoster Vaccines Completed 05/15/2022, 01/08/2022 Pneumococcal Vaccine: 50+ Years Completed 05/13/2024, 04/24/2018, [...] on patient's age to complete this topic Insurance MEDICARE [facility] Care Teams Elevating Grader Operator Relationship Specialty Start Date End Date Atul Sanz NP [address] [facility] [place] PCP - General 06/09/19
--- OUTSIDE RECORDS SUMMARY | 2025-02-04 08:15 | XMS_ITS | Patient Health Record ---
Author Organization [facility] Address [address] [facility] [address] [place], [place] [address] Care Team Providers Care Strategy Consultant Name Role Phone Atul Conway Primary Care Provider Unav ailable Singh Arenas Unavailable [phone] Allergies Allergen (clinical drug ingredient) Drug/Non Drug Allergy documented on EMR Reaction Allergy Type Onset Date Status Adhesive Unknown Allergy Active Latex Latex Unknown Allergy Active Reason For Referral No Information Medications Medication SIG (Take, Route, Frequency, Duration) Notes Start Date End Date Status Celecoxib 200 MG TAKE 1 CAPSULE BY MOUTH EVERY DAY NEEDED FOR PAIN Oral; Duration: 30 Days Active Cephalexin 500 MG 1 capsule Orally every 8 hrs; Duration: 10 days Active Levothyroxine Sodium 88 MCG TAKE 1 TABLET BY MOUTH EVERY DAY IN THE MORNING Oral; Duration: 90 Days Active Rosuvastatin Calcium 5 MG Oral; Duration: 84 Days Active Lisinopril 20 MG Oral; Duration: 90 Days Active busPIRone HCl 7.5 mg [...] W/U Status Risk Notes Problem Essential hypertension (I10) Active confirmed Vital Signs Blood pressure diastolic 80 mm Hg 07/14/2024 Height 5 ft 2 in in 07/14/2024 Blood pressure systolic 120 mm Hg 07/14/2024 Weight 120 lbs 07/14/2024 BMI 21.95 kg/m2 07/14/2024 Procedures Procedure Date Ordered Date Performed Result Body Sit e 27746- Debride <25 sq cm 06/05/2024 N/A Encounters Encounter Location Date Provider Diagnosis [address] [address] 04/14/2024 Singh Dagoberto Pain in left toe(s) M79.675 ; Other hammer toe(s) (acquired), left foot M20.42 and Arthritis of joint of lesser toe, left M19.[address] [address] 05/29/2024 Singh Dagoberto Skin ulcer of toe of left foot, limited to breakdown of skin L97.521 ; Cellulitis of toe of left foot L03.032 ; Other hammer toe(s) (acquired), left foot M20.42 ; Arthritis of joint of lesser toe, left M19.072 and Pain in left toe(s) M79.[address] [address] 06/05/2024 Singh Dagoberto Skin ulcer of toe of left foot, limited to breakdown of skin L97.521 and Cellulitis of toe of left foot L03.[address] [address] 07/14/2024 Singh Dagoberto Skin ulcer of toe of left foot, limited to breakdown of skin L97.[address] [address] 05/20/2024 Singh Dagoberto [address] [address] 05/29/2024 Singh Dagoberto [address] [address] 06/05/2024 Singh Dagoberto Assessments Encounter Date Diagnosis (ICD Code) Assessment [...] X ray : Foot, left 3V 05/29/2024 30308- Debride <25 sq cm 06/05/2024 Insurance Providers Payer Name Payer Address Payer Phone Subscriber Number Group Number Insured Name Patient Relationship to Insured Coverage Start Date Coverage End Date Medicare National Govt Svcs Inc [address] [place] [address] [id number] Birgit Wiley Self - patient is the insured [facility] [address] [place] [address] [id number] Birgit Wiley Self - patient is the insured Medical (General) History Medical History History ICD Code Arthritis Knee Pain Cancer Cataracts Diverticulosis Hypertension Reflux ( GERD) thyroid Hypercholesterolemia Surgical History Surgery Date(Month/Year) Breast Surgery 2017 bunionectomy
--- OUTSIDE RECORDS SUMMARY | 2025-02-04 08:15 | XMS_ITS | Clinical Summary ---
Author Organization [facility] Address [address] [place] [address] Care Team Providers Care Probation Manager Name Role Phone LeslySimone Primary Care Provider [phone] Allergies No known active allergies Medications Medication [...] 1-dose 75+ series) 2020 Influenza Vaccine (#1) 2025 Hepatitis B Vaccines Aged Out No long er eligible based on patient's age to complete this topic RSV Ped < 20 months Aged Out No longe r eligible based on patient's age to complete this topic Care Teams Probation Manager Relationship Specialty Start Date End Date Simone Grace DO [address] [place] [address] PCP - General 03/25/18
== END 2025-02-03 08:09 | disposition home or self-care (01) ==
LOC: HO.HOSX 08:08
PROVIDERS: Visit Provider Orthopaedic Surgery
DX: Z13.89 Encounter for screening for other disorder (principal)

== ENCOUNTER 2025-02-04 12:52 | Outpatient (REF) | payer SELFPAY ==
--- NOTE | 2025-02-04 14:52 | MHC.AU.HA1 ---
Hearing Aid Evaluation Date of Visit: 02/04/25 Historical Information: Description of Hearing: Mild sloping to moderately-severe sensorineural hearing loss Summary: Based on the hearing test, Birgit knows she needs HAs. However, she does not experience significant enough difficulties in her day-to-day interactions to be motivated to pursue amplification. 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 Leaning towards forgoing fitting at this time. However, after some discussion, Birgit agreeable to 2 week demo. Programmed Oticon Intent 1 miniRITE-Rs with receivers, 6mm double hannah domes (no retention tail). Initial fit settings then down to AM1. Reportedly still too loud but willing to acclimate. Noted own voice reverberant and can hear hair on microphones. Advised all normal, especially as a new TRIPP user. Discussed importance of daily, consistent use. Kept information to minimum - only explained tank charger and insertion/removal for now. Scheduled follow up in one week. Hearing Aid Prescription: SEE ABOVE Based on the individual?s shared listening needs, communication environments, dexterity, desire for connectivity, and personal preferences, the following prescription for amplification has been made: Right ear: Make, Model, Color: Battery Size: Reading Intervention Teacher/Slim Tube: Type of Earmold/Dome/CShell/SlimTip: Left ear: Left ear prescription to be same as Right Hearing Aid above: Make, Model, Color: Battery Size: Reading Intervention Teacher/Slim Tube: Type of Earmold/Dome/CShell/SlimTip: Plan of Care: Follow up was scheduled. Primary Diagnosis: H90.3 Bilateral Sensorineural Hearing Loss Signature: Provider: Hugo Best, [facility]
== END 2025-02-04 12:53 | disposition home or self-care (01) ==
LOC: HO.HAP 12:52
PROVIDERS: Visit Provider Nurse Practitioner Family
DX: Z13.89 Encounter for screening for other disorder (principal)

== ENCOUNTER 2025-02-11 11:06 | Outpatient (REF) | payer SELFPAY ==
--- OUTSIDE RECORDS SUMMARY | 2025-02-11 11:57 | XMS_ITS | Clinical Summary ---
Author Organization [facility] Address [address] [place] [address] Phone Care Team Providers Care Rooms Director Name Role Phone Atul Sanz NP Primary Care Provider Allergies Active Allergy Reactions Criticality Noted Date Comments Aluminized Plastic 10/06/2024 Nickel 08/28/2018 Causes contact allergy Ykdqppv-Jbv-Xim Reductase Inhibitors 10/29/2023 Medications lisinopriL (PRINIVIL,ZESTR IL) [...] of the chest in 6 months at [facility] and we will scan in her [facility]. All questions were answered. Assessment & [...] of the chest in 3 months at [facility] and we will scan in her [facility]. All questions were answered. We also [...] BREAST LUMPECTOMY; COMMENT: remaining DCIS, ER & [place] positive FOOT SURGERY Left PROCEDURE: HISTORICAL FOOT [...] AM EDT Appointment [facility] [address] [place] [address] 04/12/2025 11:00 AM EDT Appointment [facility] CT Scan [address] [place] [phone] 04/16/2025 1:30 PM EDT Office Visit Pulmonology - [place] [address] [facility] [address] [place] [address] Daya Ravi MD [address] [place] [address] Health Maintenance Due Date Last Done Comments [...] to complete this topic Insurance MEDICARE [facility] Care Teams Rooms Director Relationship Specialty Start Date End Date Atul Sanz NP [address] [facility] [place] PCP - General 06/09/19
--- OUTSIDE RECORDS SUMMARY | 2025-02-11 11:57 | XMS_ITS | Patient Health Record ---
Author Organization [facility] Address [address] [facility] tonia [place], [place] [address] Care Team Providers Care Manager Balance Name Role Phone Atul Conway Primary Care Provider Unav ailable Singh Arenas Unavailable [phone] Allergies Allergen (clinical drug ingredient) Drug/Non Drug [...] Ordered Date Performed Result Body Sit e 84459- Debride <25 sq cm 06/05/2024 N/A Encounters Encounter Location Date Provider Diagnosis [address] [address] 04/14/2024 Singh Dagoberto Pain in left toe(s) M79.675 ; Other hammer toe(s) (acquired), left foot M20.42 and Arthritis of joint of lesser toe, left M19.[address] [address] 05/29/2024 Singh Dagoberto Skin ulcer of toe of left foot, limited to breakdown of skin L97.521 ; Cellulitis of toe of left foot L03.032 ; Other hammer toe(s) (acquired), left foot M20.42 ; Arthritis of joint of lesser toe, left M19.072 and Pain in left toe(s) M79.[address] [address] 06/05/2024 Singh Dagoberto Skin ulcer of toe of left foot, limited to breakdown of skin L97.521 and Cellulitis of toe of left foot L03.[address] [address] 07/14/2024 Singh Dagoberto Skin ulcer of toe of left foot, limited to breakdown of skin L97.[address] [address] 05/20/2024 Singh Dagoberto [address] [address] 05/29/2024 Singh Dagoberto [address] [address] 06/05/2024 Singh Dagoberto Assessments Encounter Date Diagnosis [...] X ray : Foot, left 3V 05/29/2024 81955- Debride <25 sq cm 06/05/2024 Insurance Providers Payer Name Payer Address Payer Phone Subscriber Number Group Number Insured Name Patient Relationship to Insured Coverage Start Date Coverage End Date Medicare National Govt Svcs Inc [address] [place] [address] [id number] Birgit Wiley Self - patient is the insured [facility] ([employer]) [address] [place] [address] [id number] Birgit Wiley Self - patient is the insured Medical (General) History Medical History History ICD Code Arthritis Knee Pain Cancer Cataracts Diverticulosis Hypertension Reflux ( GERD) thyroid Hypercholesterolemia Surgical History Surgery Date(Month/Year) Breast Surgery 2017 bunionectomy
--- OUTSIDE RECORDS SUMMARY | 2025-02-11 11:57 | XMS_ITS | Clinical Summary ---
Author Organization [facility] Address [address] [place] [address] Care Team Providers Care Detention Deputy Name Role Phone LeslySimone Primary Care Provider [phone] Allergies No known active allergies Medications Medication [...] age to complete this topic Care Teams Detention Deputy Relationship Specialty Start Date End Date Simone Grace DO [address] [place] [address] PCP - General 03/25/18
--- NOTE | 2025-02-11 13:36 | MHC.AU.HA3 ---
Hearing Instrument Follow-Up- Binaural Date of Visit: 02/11/25 Right Ear: Make, Model, Color, Serial Number: Oticon Intent 1 miniRITE-R DEMO Battery Size: Rechargeable Decaler/Slim Tube: Earmold/Dome/CShell/SlimTip:6mm double hannah dome (no retention tail) Type of Wax Guard: miniFit Left Ear: Make, Model, Color, Serial Number: Oticon Intent 1 miniRITE-R DEMO Battery Size: Rechargeable Decaler/Slim Tube: Earmold/Dome/CShell/SlimTip: 6mm double hannah dome (no retention tail) Type of Wax Guard: miniFit Follow-Up Summary: Initially reported unsure if noticing significant benefit; however, after some discussion, noted several places where HAs helpful. TV and radio volume lower, able to hear professional benefits sales consultant better at jain, certain friends who have softer voice were easier to understand, heard cellphone and house phone ringers and alarms/buzzer around house better. When not wearing HAs, noted everything sounds muffled. Some difficulty inserting right TRIPP fully. Otherwise, no reported issues. Inquired about rechargeable customs. Advised needs to be at least size of ITC and cannot demo, would need to do full trial including payments. Birgit opted to demo RITEs for one more week. Also inquired about purchasing demo HAs at discount or other donated/refurbished HAs. Will check if possible. Scheduled follow up - Birgit will make final decision re: HAs at that time. Recommendations: An additional follow-up was scheduled to monitor progress. Diagnosis Code(s): Primary Diagnosis: H90.3 Bilateral Sensorineural Hearing Loss Signature: Provider: Hugo Best, [facility]
== END 2025-02-11 11:07 | disposition home or self-care (01) ==
LOC: HO.HAP 11:06
PROVIDERS: Visit Provider Nurse Practitioner Family
DX: Z13.89 Encounter for screening for other disorder (principal)

== ENCOUNTER 2025-02-16 09:49 | Outpatient (REF) | payer MEDICARE, OTHER, SELFPAY ==
--- NOTE | ~2025-02-16 | XR_ITS ---
EXAMINATION: XR KNEE, LEFT CLINICAL INFORMATION: M25.562 - Pain in left knee COMPARISON: None available. TECHNIQUE: Three views of the left knee. FINDINGS: There is mild narrowing of the medial joint space. There is chondrocalcinosis in the lateral clear space, and probably also in the medial clear space. There is no joint effusion. There are small tricompartmental marginal osteophytes, largest along the medial femoral condyle and lateral tibial plateau. There are moderate atherosclerotic calcifications. 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 Electronically signed by: Boby Gagnon MD 02/16/2025 11:19 AM EDT
--- OUTSIDE RECORDS SUMMARY | 2025-02-17 10:27 | XMS_ITS | Clinical Summary ---
Author Organization [facility] Address [address] [place] [address] Care Team Providers Care Desulfurizer Operator Name Role Phone LselySimone Primary Care Provider [phone] Allergies No known active allergies Medications Medication [...] age to complete this topic Care Teams Desulfurizer Operator Relationship Specialty Start Date End Date Simone Grace DO [address] [place] [address] PCP - General 03/25/18
--- OUTSIDE RECORDS SUMMARY | 2025-02-17 10:27 | XMS_ITS | Clinical Summary ---
Author Organization [facility] Address [address] [place] [address] Phone Care Team Providers Care Diamond Wheel Molder Name Role Phone Atul Sanz NP Primary Care Provider Allergies Active Allergy Reactions Criticality Noted Date Comments Aluminized Plastic 10/06/2024 Nickel 08/28/2018 Causes contact allergy Xlgjbjk-Dai-Tas Reductase Inhibitors 10/29/2023 Medications lisinopriL (PRINIVIL,ZESTR IL) [...] nodules and how their size, shape, and manager change time affect her level of suspicion for [...] of the chest in 6 months at [facility] and we will scan in her [facility]. All questions were answered. Assessment & [...] nodules and how their size, shape, and manager change time affect her level of suspicion for [...] of the chest in 3 months at [facility] and we will scan in her [facility]. All questions were answered. We also [...] BREAST LUMPECTOMY; COMMENT: remaining DCIS, ER & [place] positive FOOT SURGERY Left PROCEDURE: HISTORICAL FOOT [...] AM EDT Appointment [facility] [address] [place] [address] 04/12/2025 11:00 AM EDT Appointment [facility] CT Scan [address] [place] [phone] 04/16/2025 1:30 PM EDT Office Visit Pulmonology - [place] [address] [facility] [address] [place] [phone] Daya Ravi MD [address] [place] [address] Health Maintenance Due Date Last Done Comments [...] age to complete this topic Insurance MEDICARE [facility] Care Teams Diamond Wheel Molder Relationship Specialty Start Date End Date Atul Sanz NP [address] [facility] [place] PCP - General 06/09/19
--- OUTSIDE RECORDS SUMMARY | 2025-02-17 10:27 | XMS_ITS | Clinical Summary ---
Author Organization [facility] Address [address] [facility] [address] [place] [address] Phone Care Team Providers Care Bale Tie Machine Operator Name Role Phone Atul Sanz NP Primary Care Provider + Saniya Waldrop MD Unavailable [phone] Medications multivit with minerals/lutein (MULTIVITAMIN 50 PLUS [...] care doc She thought I was an sales development specialist She wants to stay with her current PCP - Lucian Yvon at [facility] Immunizations Immunization Administration Dates Next Due [...] file Insurance MEDICARE PART A & B [employer] MEDICARE SUPPLEMENT MEDICARE PART A & B [employer] MEDICARE SUPPLEMENT MEDICARE PART A & B [facility] MEDICARE SUPPLEMENT MEDICARE PART A & B [facility]ENSION MEDICARE SUPPLEMENT [place] [phone] MEDICARE PART A & B Member Subscriber Plan / Payer ( fective 2010-) Name:Birgit Wiley Member ID:[id number] Relation to Subscriber:Self Name:Birgit Wiley Subscriber ID:[id number] Payer ID:[id number] Group ID:Not on file Type:Medicare Address: [employer] [address] [place] [phone] [facility] EXTENSION MEDICARE SUPPLEMENT [place] [phone] MEDICARE PART A & B [facility] EXTENSION MEDICARE SUPPLEMENT MEDICARE PART A & B [facility] EXTENSION MEDICARE SUPPLEMENT MEDICARE PART A & B [employer] MEDICARE SUPPLEMENT MEDICARE PART A & B [employer] MEDICARE SUPPLEMENT Care Teams Bale Tie Machine Operator Relationship Specialty Start Date End Date Atul Sanz NP [address] [place] [address] [email or web address] PCP - General Family Medicine 06/21/21 Saniya Waldrop MD [address] [place] [address] 06/21/21 Additional Source Comments The information contained in this document represents components of the legal health record. It is not the complete legal health record.[facility]
--- OUTSIDE RECORDS SUMMARY | 2025-02-17 10:28 | XMS_ITS | Patient Health Record ---
Author Organization [facility] Address [address] [facility] [address] [place], [place] [address] Care Team Providers Care Driver Material Handler Name Role Phone Atul Conway Primary Care Provider Unav ailable Singh Arenas Unavailable [phone] Allergies Allergen (clinical drug ingredient) Drug/Non Drug [...] Ordered Date Performed Result Body Sit e 39969- Debride <25 sq cm 06/05/2024 N/A Encounters Encounter Location Date Provider Diagnosis [address] [address] 04/14/2024 Singh Dagoberto Pain in left toe(s) M79.675 ; Other hammer toe(s) (acquired), left foot M20.42 and Arthritis of joint of lesser toe, left M19.[address] [address] 05/29/2024 Singh Dagoberto Skin ulcer of toe of left foot, limited to breakdown of skin L97.521 ; Cellulitis of toe of left foot L03.032 ; Other hammer toe(s) (acquired), left foot M20.42 ; Arthritis of joint of lesser toe, left M19.072 and Pain in left toe(s) M79.[address] [address] 06/05/2024 Singh Dagoberto Skin ulcer of toe of left foot, limited to breakdown of skin L97.521 and Cellulitis of toe of left foot L03.[address] [address] 07/14/2024 Singh Dagoberto Skin ulcer of toe of left foot, limited to breakdown of skin L97.[address] [address] 05/20/2024 Singh Dagoberto [address] [address] 05/29/2024 Singh Dagoberto [address] [address] 06/05/2024 Singh Dagoberto Assessments Encounter Date Diagnosis [...] X ray : Foot, left 3V 05/29/2024 67975- Debride <25 sq cm 06/05/2024 Insurance Providers Payer Name Payer Address Payer Phone Subscriber Number Group Number Insured Name Patient Relationship to Insured Coverage Start Date Coverage End Date Medicare National Govt Svcs Inc [address] [place] [address] [id number] Birgit Wiley Self - patient is the insured [facility] ([employer]) [address] [place] [address] [id number] Birgit Wiley Self - patient is the insured Medical (General) History Medical History History ICD Code Arthritis Knee Pain Cancer Cataracts Diverticulosis Hypertension Reflux ( GERD) thyroid Hypercholesterolemia Surgical History Surgery Date(Month/Year) Breast Surgery 2017 bunionectomy
== END 2025-02-16 09:50 | disposition home or self-care (01) ==
LOC: HO.HOSX 09:49
PROVIDERS: Visit Provider Orthopaedic Surgery
DX: M17.12 Unilateral primary osteoarthritis, left knee (principal); M25.562 Pain in left knee; Z79.899 Other long term (current) drug therapy
CPT/HCPCS: 73562; 99202

== ENCOUNTER 2025-02-16 11:01 | Outpatient (AMB) | payer MEDICARE, OTHER, SELFPAY ==
[2025-02-16 11:13] VITALS: BMI 22.3
--- NOTE | 2025-02-16 11:13 | MHC.OFFVIS ---
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 Patient states that about five years ago is when the pain flared up with daily activities. No numbness or tingling to report at this time. She has had cortisone injections in the past. She is due to get a viscosupplementation injection by Dr. Harris in the near future. She has not had surgery on either of her knees. Allergies Lobjpyv-TME-JhU Reductase Inhibitor Allergy (Mild, Verified 02/16/25 11:16) cannot tolerate Medication List - Last Reconciled 02/16/25 by Saad Perez MD buspirone 5 mg PO BID 30 days celecoxib (Celebrex) 200 mg PO DAILY PRN esomeprazole magnesium 20 mg PO DAILY levothyroxine 88 mcg PO QAM lisinopril 20 mg PO DAILY 90 days rosuvastatin 5 mg PO 3XW PFSH Medical History (Updated 01/07/25 @ 12:21 by LINDA Holland) Hx of radiation therapy COVID-19 vaccine series completed Arthritis Osteoarthritis DDD (degenerative disc disease) Dyskinesia of gallbladder GERD (gastroesophageal reflux disease) Ductal carcinoma in situ (DCIS) of left breast Dyslipidemia Anxiety Osteopenia HTN (hypertension) Hypothyroid Surgical History Hx of left cataract extraction History of esophagogastroduodenoscopy (EGD) Hx of blepharoplasty Breast cancer History of hammer toe correction Family History Father HTN (hypertension) Mother No problems noted. Social History Housing: Condominium Are you a primary pediatric care coordinator to a significant other at home: No Do you presently have visiting nurse or other home services: No Alcohol intake: current Patient Tobacco Use Status: Former Tobacco user Tobacco use type: Cigarette e-Cigarette/Vaping Use: Never Used Second Hand Smoke Exposure: No Advance Directives Date on File: 05/15/21 Current occupational status: retired Cognitive needs: No Hearing needs: No Vision needs: No Physical Exam Vital Signs: BMI result Body Mass Index 22.3 Const Other: Well-nourished well-developed very friendly female awake alert and oriented x3 in no acute distress Extrem Other: Bilateral lower extremity examination shows good capillary refill, no skin lesions noted, normal sensation light touch Left knee examination shows a minimal effusion, mild crepitus with range of motion, no instability Results Reviewed Results Reviewed: X-rays of the patient's left knee show moderate diffuse joint space narrowing, no acute bony abnormalities MRI report of the patient's left knee shows moderate diffuse degenerative changes, no acute bony abnormalities Assessment & Plan Assessment & Plan (1) Left knee pain: Code(s): M25.562 - Pain in left knee Category: Medical Plan Ms. 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 I had a lengthy discussion with the patient regarding the treatment options. She wishes to hold off on surgery if at all possible. I agree with this plan. The patient will follow-up for her viscosupplementation injection with Dr. Harris as scheduled. She will follow up with me on an as-needed basis should her symptoms not plateau at an unacceptable level. Feel free to call me at any time should questions regarding her orthopedic management arise. Thank you very much for asking me to see this very friendly patient. I spent 21 minutes in reviewing the patient's records and imaging studies, seeing the patient and documenting in the medical record. Orders: Orders XR knee LT 3V 02/03/25 M25.562 - Pain in left knee XR knee LT 3V Today M25.562 - Pain in left knee Coding Level of Care Code New Pt Level 3 (18725) Complex EM visit Add On G2211 Diagnoses Left knee pain M25.562
--- OUTSIDE RECORDS SUMMARY | 2025-02-16 12:19 | XMS_ITS | Clinical Summary ---
Author Organization [facility] Address [address] [facility] [address] [place] [address] Phone Care Team Providers Care Fluorescent Lamp Replacer Name Role Phone Atul Sanz NP Primary Care Provider + Saniya Waldrop MD Unavailable [phone] Medications multivit with minerals/lutein (MULTIVITAMIN 50 PLUS ORAL) Active biotin 5 mg/mL Liqd oral suspension Active ibuprofen (ADVIL,MOTRIN) 200 MG tablet 1 tablet as needed Active levothyroxine (SYNTHROID, LEVOTHROID) 75 MCG tablet 1 tablet on an empty stomach in the morning Active alendronate (FOSAMAX) 70 MG tablet PLEASE SEE ATTACHED FOR DETAILED DIRECTIONS 2 Active busPIRone (BUSPAR) 7.5 MG tablet Take 7.5 mg by mouth. Active celecoxib (CELEBREX) 200 MG capsule Take 200 mg by mouth daily. Active lisinopril (PRINIVIL,ZESTR IL) 20 MG tablet Take 20 mg by mouth daily. 2 Active rosuvastatin (CRESTOR) 5 MG tablet Take 5 mg by mouth daily. 5mg- 3 times a week Active Active Problems Problem Noted Date Diagnosed Date Benign essential hypertension 04/23/2022 Assessment & Plan (04/23/2022 4:01 PM EDT): Patient did not understand that I am a primary care doc She thought I was an denial resolution specialist She wants to stay with her current PCP - Lucian Yvon at [facility] Immunizations Immunization Administration Dates Next Due Influenza High-Dose Quadriva lent Preservative Free IM 04/20/2021 Influenza High-Dose Trivalen t Preservative Free IM 04/28/2019,04/24/2018,04/29/2017,03/29,04/24/2016,05/02/2015 Influenza Recombinant Blanca valent Preservative Free IM 04/21/2020 Influenza Trivalent w/ Preservative IM 3,04/07/2012 Pneumococcal conjugate PCV13 04/24/2018 Pneumococcal polysaccharide PPSV23 04/22/2013 Zoster recombinant 01/08/2022 Family History Medical History Relation Comments CV disease Father 2 Relation Status Comments Father 1 Father 2 Social History Tobacco Use Types Packs/Day Years Used Date Smoking Tobacco: Never Assessed Child or Family Care Answer Date Record ed Do you have problems with on e of the following making it difficult for you to work, study, or receive health care? No 04/23/2022 Education Answer Date Recorded Are you interested in more education? Not on magnus e 05/02/2024 Are you concerned about learning? Not on file 05/02/2024 No 05/02/2024 No 05/02/2024 Food Answer Date Recorded Within the past 6 months we worried whether our food would run out before we got money to buy more. Never True 04/23/2022 Within the past 6 months the food we bought just didn't last and we didn't have enough money to get more. Never True Residential Stability Answer Date Recor ded What is your housing situation today? I have ruby sing 04/23/2022 How many times have you move d in the past 12 months? Zero (I did not move) 04/23/2022 06 Are you worried that in t he next 2 months, you may not have your own housing to live in? No 04/23/2022 Paying for Meds Answer Date Recorded Do you have trouble paying for medicines? No 04/23/2022 Paying Utility Bills Answer Date Record ed Do you have trouble paying your heating or elect ricity bill? No 04/23/2022 Transportation Answer Date Recorded Has the lack of transportati on kept you from medical appointments or from getting medications? No 04/23/2022 Unemployment Answer Date Recorded Are you currently unemployed or working on a part-time or temporary basis, and looking for work? No 04/23/2022 Digital Access Answer Date Recorded No 12/22/2022 No 12/22/2022 Reliable internet access at home? Not on file 12/22/2022 Device with a working camera? Not on file Comments Unknown Sex and Gender Information Value Date Recorded Sex Assigned at Not on file Legal Sex Female 10:38 PM EDT Gender Identity Not on file Sexual Orientation Not on file Last Filed Vital Signs Vital Sign Reading Time Taken Comments Blood Pressure 110/60 04/23/2022 2:36 PM EDT Pulse 88 04/23/2022 2:36 PM EDT Temperature - - Respiratory Rate - - Oxygen Saturation 97% 04/23/2022 2:36 PM EDT Inhaled Oxygen Concentration - - Weight 53.1 kg (117 lb) 04/23/2022 2:36 PM EDT Height 157.5 cm (5' 2 ) 04/23/2022 2:36 PM EDT Body Mass Index 21.4 04/23/2022 2:36 PM EDT Plan of Treatment Health Maintenance Due Date Last Done Comments Adult Td,Tdap Booster 1945 CREATININE LEVEL 1945 LIPID PANEL 1945 POTASSIUM LEVEL 1945 TSH LEVEL 1945 SMOKING Hx and SMOKELESS TOBACCO SCREENING 1958 HEPATITIS C SCREENING 1963 OSTEOPOROSIS SCREENING INITI AL (ONE-TIME) 2010 RSV VACCINE (1 - 1-dose 75+ series) 2020 ZOSTER VACCINES (2 of 2) 03/05/2022 01/08/2022 BLOOD PRESSURE 10/21/2022 04/23/2022 DEPRESSION SCREENING 04/23/2023 04/23/2022 COVID-19 VACCINE (3 - 2023-2 5 season) 2024 09/20/2020, 08/23/2020 PNEUMOCOCCAL VACCINES (50+ years) Completed 04/24/2018, 04/22/2013 HEPATITIS A VACCINES Aged Out No long er eligible based on patient's age to complete this topic HIB VACCINES Aged Out No longer eligi ble based on patient's age to complete this topic MENINGOCOCCAL VACCINES (ACWY) Aged Out No longer eligible based on patient's age to complete this topic MENINGOCOCCAL VACCINES (B) Aged Out N o longer eligible based on patient's age to complete this topic Medical Devices Not on file Insurance MEDICARE PART A & B [employer] MEDICARE SUPPLEMENT MEDICARE PART A & B [employer] MEDICARE SUPPLEMENT MEDICARE PART A & B [facility] MEDICARE SUPPLEMENT [facility]ICARE PART A & [facility]IC[facility] SUPPLEMENT [place] [id number] MEDICARE PART A & B Member Subscriber Plan / Payer ( fective 2010-) Name:Birgit Wiley Member ID:[id number] Relation to Subscriber:Self Name:Birgit Wiley Subscriber ID:[id number] Payer ID:[id number] Group ID:Not on file Type:Medicare Address: [employer] [address] [place] [phone] [facility] EXTENSION MEDICARE SUPPLEMENT [place] [phone] MEDICARE PART A & B [facility] EXTENSION MEDICARE SUPPLEMENT MEDICARE PART A & B [facility] EXTENSION MEDICARE SUPPLEMENT MEDICARE PART A & B Not[employer] Limited MEDICARE SUPPLEMENT MEDICARE PART A & B Notable Limited MEDICARE SUPPLEMENT Care Teams Fluorescent Lamp Replacer Relationship Specialty Start Date End Date Atul Sanz NP [address] [place] [address] [email or web address] PCP - General Family Medicine 06/21/21 Saniya Waldrop MD [address] [place] [address] 06/21/21 Additional Source Comments The information contained in this document represents components of the legal health record. It is not the complete legal health record.[facility]
--- OUTSIDE RECORDS SUMMARY | 2025-02-16 12:19 | XMS_ITS | Clinical Summary ---
Author Organization [facility] Address [address] [place] [address] Phone Care Team Providers Care Rehabilitation Team Lead Name Role Phone Atul Sanz NP Primary Care Provider Allergies Active Allergy Reactions Criticality Noted Date Comments Aluminized Plastic 10/06/2024 Nickel 08/28/2018 Causes contact allergy Yzvugxu-Sds-Tua Reductase Inhibitors 10/29/2023 Medications lisinopriL (PRINIVIL,ZESTR IL) [...] nodules and how their size, shape, and auto seat cover installer time affect her level of suspicion [...] of the chest in 6 months at [facility] and we will scan in her [facility]. All questions were answered. Assessment & [...] nodules and how their size, shape, and auto seat cover installer time affect her level of suspicion [...] of the chest in 3 months at [facility] and we will scan in her [facility]. All questions were answered. We also [...] BREAST LUMPECTOMY; COMMENT: remaining DCIS, ER & [place] positive FOOT SURGERY Left PROCEDURE: HISTORICAL FOOT [...] AM EDT [facility]ointment [facility] [address] [place] [address] 04/12/2025 11:00 AM EDT Appointment [facility] CT Scan [address] [place] [phone] 04/16/2025 1:30 PM EDT Office Visit Pulmonology - [place] [address] [facility] [address] [place] [phone] Daya Ravi MD [address] [place] [address] Health Maintenance Due Date Last Done Comments DTaP,Tdap,and Td Vaccines (1 - Tdap) 1964 COVID-19 Vaccine (3 - Moderna risk series) 10/18/2020 09/20/2020, 08/23/2020 Cholesterol Screening (Lipid Panel) 07/07/2022 Falls Risk Assessment 07/07/2022 Hepatitis C Screening 07/07/2022 Medicare Annual Wellness Visit 07/07/2022 Osteoporosis Screening (Bone Density Screening) 07/07/2022 Social Influencers of Health Screening 07/07/2022 Hypertension/CHF/CAD Annual BMP Blood Test 07/11/2022 Depression Screening 07/29/2024 Influenza Vaccine (#1) 2025 , 04/25/2023, 04/27/2022, [...] age to complete this topic Insurance MEDICARE [facility] Care Teams Rehabilitation Team Lead Relationship Specialty Start Date End Date Atul Sanz NP [address] [facility] [place] PCP - General 06/09/19
--- OUTSIDE RECORDS SUMMARY | 2025-02-16 12:19 | XMS_ITS | Clinical Summary ---
Author Organization [facility] Address [address] [place] [address] Care Team Providers Care Medical Staff Director Name Role Phone LeslySimone Primary Care Provider [phone] Allergies No known active allergies Medications Medication [...] age to complete this topic Care Teams Medical Staff Director Relationship Specialty Start Date End Date Simone Grace DO [address] [place] [address] PCP - General 03/25/18
--- OUTSIDE RECORDS SUMMARY | 2025-02-16 12:20 | XMS_ITS | Patient Health Record ---
Author Organization [facility] Address [address] [facility] [address] [place], [place] [address] Care Team Providers Care Keyboard Instrument Repairer Name Role Phone Atul Conway Primary Care Provider Unav ailable Singh Arenas Unavailable [phone] Allergies Allergen (clinical drug ingredient) Drug/Non Drug [...] Ordered Date Performed Result Body Sit e 53846- Debride <25 sq cm 06/05/2024 N/A Encounters Encounter Location Date Provider Diagnosis [address] [address] 04/14/2024 Singh Dagoberto Pain in left toe(s) M79.675 ; Other hammer toe(s) (acquired), left foot M20.42 and Arthritis of joint of lesser toe, left M19.[address] [address] 05/29/2024 Singh Dagoberto Skin ulcer of toe of left foot, limited to breakdown of skin L97.521 ; Cellulitis of toe of left foot L03.032 ; Other hammer toe(s) (acquired), left foot M20.42 ; Arthritis of joint of lesser toe, left M19.072 and Pain in left toe(s) M79.[address] [address] 06/05/2024 Singh Dagoberto Skin ulcer of toe of left foot, limited to breakdown of skin L97.521 and Cellulitis of toe of left foot L03.[address] [address] 07/14/2024 Singh Dagoberto Skin ulcer of toe of left foot, limited to breakdown of skin L97.[address] [address] 05/20/2024 Singh Dagoberto [address] [address] 05/29/2024 Singh Dagoberto [address] [address] 06/05/2024 Singh Dagoberto Assessments Encounter Date Diagnosis [...] X ray : Foot, left 3V 05/29/2024 15044- Debride <25 sq cm 06/05/2024 Insurance Providers Payer Name Payer Address Payer Phone Subscriber Number Group Number Insured Name Patient Relationship to Insured Coverage Start Date Coverage End Date Medicare National Govt Svcs Inc [address] [place] [address] [id number] Birgit Wiley Self - patient is the insured [facility] ([employer]) [address] [place] [address] [id number] Birgit Wiley Self - patient is the insured Medical (General) History Medical History History ICD Code Arthritis Knee Pain Cancer Cataracts Diverticulosis Hypertension Reflux ( GERD) thyroid Hypercholesterolemia Surgical History Surgery Date(Month/Year) Breast Surgery 2017 bunionectomy
== END 2025-02-16 11:37 | disposition home or self-care (01) ==
LOC: HO.HOS 11:02
PROVIDERS: PCP Nurse Practitioner Family; Visit Provider Orthopaedic Surgery
DX: M25.562 Pain in left knee (principal)
CPT/HCPCS: 99203; G2211

== ENCOUNTER → 2025-02-16 11:02 | Outpatient (BNV) | payer SELFPAY | PROVIDERS: Visit Provider Radiology Diagnostic Radiology | DX: M17.12 Unilateral primary osteoarthritis, left knee (principal) | CPT/HCPCS: 73562 ==

== ENCOUNTER 2025-02-25 15:07 | Outpatient (REF) | payer SELFPAY ==
--- OUTSIDE RECORDS SUMMARY | 2025-02-25 15:13 | XMS_ITS | Clinical Summary ---
Author Organization [facility] Address [address] [place] [address] Phone Care Team Providers Care Artists' Booking Representative Name Role Phone Atul Sanz NP Primary Care Provider + Saniya Waldrop MD Unavailable [phone] Medications multivit with minerals/lutein (MULTIVITAMIN 50 PLUS [...] care doc She thought I was an clinical rehab specialist She wants to stay with her current PCP - Lucian Yvon at [facility] Immunizations Immunization Administration Dates Next Due [...] file Insurance MEDICARE PART A & B [employer] MEDICARE SUPPLEMENT MEDICARE PART A & B [employer] MEDICARE SUPPLEMENT MEDICARE PART A & B [facility] MEDICARE SUPPLEMENT MEDICARE PART A & B [facility] MEDICARE SUPPLEMENT [place] [id number] MEDICARE PART A & B Member Subscriber Plan / Payer ( fective 2010-) Name:Birgit Wiley Member ID:[id number] Relation to Subscriber:Self Name:Birgit Wiley Subscriber ID:[id number] Payer ID:[id number] Group ID:Not on file Type:Medicare Address: [employer] [address] [place] [phone] [facility] EXTENSION MEDICARE SUPPLEMENT [place] [id number] MEDICARE PART A & B [facility] EXTENSION MEDICARE SUPPLEMENT MEDICARE PART A & B [facility] EXTENSION MEDICARE SUPPLEMENT MEDICARE PART A & B [employer] MEDICARE SUPPLEMENT MEDICARE PART A & B [employer] MEDICARE SUPPLEMENT Care Teams Artists' Booking Representative Relationship Specialty Start Date End Date Atul Sanz NP [address] [place] [address] [email or web address] PCP - General Family Medicine 06/21/21 Saniya Waldrop MD [address] [place] [address] 06/21/21 Additional Source Comments The information contained in this document represents components of the legal health record. It is not the complete legal health record.[facility]
--- OUTSIDE RECORDS SUMMARY | 2025-02-25 15:13 | XMS_ITS | Clinical Summary ---
Author Organization [facility] Address [address] [place] [address] Phone Care Team Providers Care Overcaster Name Role Phone Atul Sanz NP Primary Care Provider [phone] Allergies Active Allergy Reactions Criticality Noted Date Comments Aluminized Plastic 10/06/2024 Nickel 08/28/2018 Causes contact allergy Rzksiun-Dxq-Epp Reductase Inhibitors 10/29/2023 Medications lisinopriL (PRINIVIL,ZESTR IL) [...] nodules and how their size, shape, and filter changer time affect her level of suspicion [...] of the chest in 6 months at [facility] and we will scan in her [facility]. All questions were answered. Assessment & [...] nodules and how their size, shape, and filter changer time affect her level of suspicion [...] of the chest in 3 months at [facility] and we will scan in her [place] [facility]. All questions were answered. We also [...] BREAST LUMPECTOMY; COMMENT: remaining DCIS, [place] & [place] positive FOOT SURGERY Left PROCEDURE: HISTORICAL FOOT [...] AM EDT Appointment [facility] [address] [place] [address] 04/12/2025 11:00 AM EDT Appointment [facility] CT Scan [address] [place] [phone] 04/16/2025 1:30 PM EDT Office Visit Pulmonology - [place] [address] [facility] [address] [place] [address] Daya Ravi MD [address] [place] [address] Health Maintenance Due Date Last Done Comments [...] age to complete this topic Insurance MEDICARE [facility] Care Teams Overcaster Relationship Specialty Start Date End Date Atul Sanz NP [address] [facility] [place] PCP - General 06/09/19
--- OUTSIDE RECORDS SUMMARY | 2025-02-25 15:13 | XMS_ITS | Patient Health Record ---
Author Organization [facility] Address [address] [facility] [place] [address] Care Team Providers Care Qa Lead Name Role Phone Atul Conway Primary Care Provider Unav ailable Singh Arenas Unavailable [phone] Allergies Allergen (clinical drug ingredient) Drug/Non Drug [...] W/U Status Risk Notes Problem Essential hypertension (47011113) Essential hypertension (I10) Active confirmed Vital Signs Blood pressure diastolic 80 mm Hg 07/14/2024 Height 5 ft 2 in in 07/14/2024 Blood pressure systolic 120 mm Hg 07/14/2024 Weight 120 lbs 07/14/2024 BMI 21.95 kg/m2 07/14/2024 Procedures Procedure Date Ordered Date Performed Result Body Sit e 39261- Debride <25 sq cm 06/05/2024 N/A Encounters Encounter Location Date Provider Diagnosis [address] [address] 04/14/2024 Singh Dagoberto Pain in left toe(s) M79.675 ; Other hammer toe(s) (acquired), left foot M20.42 and Arthritis of joint of lesser toe, left M19.[address] [address] 05/29/2024 Singh Dagoberto Skin ulcer of toe of left foot, limited to breakdown of skin L97.521 ; Cellulitis of toe of left foot L03.032 ; Other hammer toe(s) (acquired), left foot M20.42 ; Arthritis of joint of lesser toe, left M19.072 and Pain in left toe(s) M79.[address] [address] 06/05/2024 Singh Dagoberto Skin ulcer of toe of left foot, limited to breakdown of skin L97.521 and Cellulitis of toe of left foot L03.[address] [address] 07/14/2024 Singh Dagoberto Skin ulcer of toe of left foot, limited to breakdown of skin L97.[address] [address] 05/20/2024 Singh Dagoberto [address] [address] 05/29/2024 Singh Dagoberto [address] [address] 06/05/2024 Singh Dagoberto Assessments Encounter Date Diagnosis [...] X ray : Foot, left 3V 05/29/2024 94341- Debride <25 sq cm 06/05/2024 Insurance Providers Payer Name Payer Address Payer Phone Subscriber Number Group Number Insured Name Patient Relationship to Insured Coverage Start Date Coverage End Date Medicare National Govt Svcs Inc [address] [place] [address] [id number] Birgit Wiley Self - patient is the insured [employer] (Unicare) [address] [place] [address] [phone] [id number] [place] , Birgit Self - patient is the insured Medical (General) History Medical History History ICD Code Arthritis Knee Pain Cancer Cataracts Diverticulosis Hypertension Reflux ( GERD) thyroid Hypercholesterolemia Surgical History Surgery Date(Month/Year) Breast Surgery 2018 bunionectomy
--- OUTSIDE RECORDS SUMMARY | 2025-02-25 15:13 | XMS_ITS | Clinical Summary ---
Author Organization [facility] Address [address] [place] [address] Care Team Providers Care Fastener Sewing Machine Operator Name Role Phone LeslySimone Primary Care Provider [phone] Allergies No known active allergies Medications Medication [...] age to complete this topic Care Teams Fastener Sewing Machine Operator Relationship Specialty Start Date End Date Simone Grace DO [address] [place] [address] PCP - General 03/25/18
--- NOTE | 2025-02-25 16:27 | MHC.AU.HA1 ---
Hearing Aid Evaluation Date of Visit: 02/25/25 Historical Information: Description of Hearing: Mild sloping to moderately-severe sensorineural hearing loss, bilaterally Current personal amplification information: Oticon Intent 1 miniRITE-R DEMOS Summary: Has been demoing HAs since 02/04/2025. Still noticing benefit from HAs. Opted to purchase. Discussed technology levels and differences in noise management, demoing Intent 1s but opted for Intent 3s. Will continue to use Demos until new HAs arrive. Ordered HAs. Hearing Aid Prescription: Based on the individual?s shared listening needs, communication environments, dexterity, desire for connectivity, and personal preferences, the following prescription for amplification has been made: Right ear: Make, Model, Color: Oticon Intent 3 miniRITE-R Color: Chroma Beige Battery Size: Rechargeable Hand Ii Tube Bender/Slim Tube: 2/85 Type of Earmold/Dome/CShell/SlimTip: 6mm double hannah dome (no retention tail) Left ear: Left ear prescription to be same as Right Hearing Aid above: Make, Model, Color: Oticon Intent 3 miniRITE-R Color: Chroma Beige Battery Size: Rechargeable Hand Ii Tube Bender/Slim Tube: 2/85 Type of Earmold/Dome/CShell/SlimTip: 6mm double hannah dome (no retention tail) Accessories/Assistive Technology: SmartCharger Plan of Care: Patient wishes to purchase hearing aids as prescribed Action Taken/Action Needed: Hearing Instrument Fitting to be scheduled when materials arrive Primary Diagnosis: H90.3 Bilateral Sensorineural Hearing Loss Signature: Provider: Hugo Best, [facility]
== END 2025-02-25 15:08 | disposition home or self-care (01) ==
LOC: HO.HAP 15:07
PROVIDERS: Visit Provider Nurse Practitioner Family
DX: Z46.1 Encounter for fitting and adjustment of hearing aid (principal); H90.3 Sensorineural hearing loss, bilateral
CPT/HCPCS: 92590

== ENCOUNTER 2025-04-06 13:07 | Outpatient (REF) | payer SELFPAY ==
--- NOTE | 2025-04-06 13:56 | MHC.AU.HA2 ---
Hearing Instrument Fitting- Adult- Binaural Date of Visit: 04/06/25 Hearing Instruments Dispensed: Right Ear: Make, Model, Color, Serial Number: Oticon Intent 3 miniRITE-R SN: [id number] Color: Chroma Beige Financial Recording Clerk Repair Warranty: 03/28/2028 Financial Recording Clerk Loss and Damage Warranty: 03/28/2028 [facility] Service Plan: OPTED OUT Battery Size: Rechargeable Head Of It/Slim Tube: 3/85 Earmold/Dome/CShell/SlimTip: 6mm double hannah dome (no retention tail) Type of Wax Guard: miniFit Left Ear: Make, Model, Color, Serial Number: Oticon Intent 3 miniRITE-R SN: [id number] Color: Chroma Beige Financial Recording Clerk Repair Warranty: 03/28/2028 Financial Recording Clerk Loss and Damage Warranty: 03/28/2028 [facility] Service Plan: OPTED OUT Battery Size: Rechargeable Head Of It/Slim Tube: 2/85 Earmold/Dome/CShell/SlimTip: 6mm double hannah dome (no retention tail) Type of Wax Guard: miniFit Accessories/Assistive Technology: Oticon Sirius SmartCharger SN: [id number]; [employer] TV3 SN: [id number] Summary of Fitting: [facility] Initially thought new HAs were too loud, especially own voice, and left louder than right. Will try with these settings and readdress at follow up if needed. Reviewed care, use, and rechargeability. Instructed how to change domes and wax guards. Dispended TV Adapter; however, Birgit reported she will likely not use it. Otherwise, glad she pursued HAs and happy with overall benefit. Recommendations: A hearing instrument follow-up was scheduled. Diagnosis Code(s): Primary Diagnosis: H90.3 Bilateral Sensorineural Hearing Loss Signature: Provider: Hugo Best, [facility]
--- NOTE | 2025-04-06 13:57 | MHC.AU.HA2 ---
Hearing Instrument Fitting- Adult- Binaural Date of Visit: 04/06/25 Hearing Instruments Dispensed: Right Ear: Make, Model, Color, Serial Number: Oticon Intent 3 miniRITE-R SN: [id number] Color: Chroma Beige Mimeographer Repair Warranty: 03/28/2028 Mimeographer Loss and Damage Warranty: 03/28/2028 [facility] Service Plan: OPTED OUT Battery Size: Rechargeable Superintendent Nonselling/Slim Tube: 3/85 Earmold/Dome/CShell/SlimTip: 6mm double hannah dome (no retention tail) Type of Wax Guard: miniFit Left Ear: Make, Model, Color, Serial Number: Oticon Intent 3 miniRITE-R SN: [id number] Color: Chroma Beige Mimeographer Repair Warranty: 03/28/2028 Mimeographer Loss and Damage Warranty: 03/28/2028 [facility] Service Plan: OPTED OUT Battery Size: Rechargeable Superintendent Nonselling/Slim Tube: 2/85 Earmold/Dome/CShell/SlimTip: 6mm double hannah dome (no retention tail) Type of Wax Guard: miniFit Accessories/Assistive Technology: [employer] Sirius SmartCharger SN: [id number] [employer]Line TV3 SN: [id number] Summary of Fitting: Returned demo HAs and java j2ee application developer. Transferred settings from [facility]. Initially thought new HAs were too loud, especially own voice, and left louder than right. Will try with these settings and readdress at follow up if needed. Reviewed care, use, and rechargeability. Instructed how to change domes and wax guards. Dispended TV Adapter; however, Birgit reported she will likely not use it. Otherwise, glad she pursued HAs and happy with overall benefit. Recommendations: A hearing instrument follow-up was scheduled. Diagnosis Code(s): Primary Diagnosis: H90.3 Bilateral Sensorineural Hearing Loss Signature: Provider: Hugo Best, [facility]
--- OUTSIDE RECORDS SUMMARY | 2025-04-06 15:25 | XMS_ITS | Clinical Summary ---
Author Organization [facility] Address [address] [place] [address] Care Team Providers Care Spare Hand Name Role Phone LeslySimone Primary Care Provider [phone] Allergies No known active allergies Medications Medication [...] age to complete this topic Care Teams Spare Hand Relationship Specialty Start Date End Date Simone Grace DO [address] [place] [address] PCP - General 03/25/18
--- OUTSIDE RECORDS SUMMARY | 2025-04-06 15:26 | XMS_ITS | Patient Health Record ---
Author Organization [facility] Address [address] [facility] [place] [address] Care Team Providers Care Cooker Process Cheese Name Role Phone Atul Conway Primary Care Provider Unav ailable Singh Arenas Unavailable [phone] Allergies Allergen (clinical drug ingredient) Drug/Non Drug [...] W/U Status Risk Notes Problem Essential hypertension (27060786) Essential hypertension (I10) Active confirmed Vital Signs Blood pressure diastolic 80 mm Hg 07/14/2024 Height 5 ft 2 in in 07/14/2024 Blood pressure systolic 120 mm Hg 07/14/2024 Weight 120 lbs 07/14/2024 BMI 21.95 kg/m2 07/14/2024 Procedures Procedure Date Ordered Date Performed Result Body Sit e 14819- Debride <25 sq cm 06/05/2024 N/A Encounters Encounter Location Date Provider Diagnosis [address] [address] 04/14/2024 Singh Dagoberto Pain in left toe(s) M79.675 ; Other hammer toe(s) (acquired), left foot M20.42 and Arthritis of joint of lesser toe, left M19.[address] [address] 05/29/2024 Singh Dagoberto Skin ulcer of toe of left foot, limited to breakdown of skin L97.521 ; Cellulitis of toe of left foot L03.032 ; Other hammer toe(s) (acquired), left foot M20.42 ; Arthritis of joint of lesser toe, left M19.072 and Pain in left toe(s) M79.[address] [address] 06/05/2024 Singh Dagoberto Skin ulcer of toe of left foot, limited to breakdown of skin L97.521 and Cellulitis of toe of left foot L03.[address] [address] 07/14/2024 Singh Dagoberto Skin ulcer of toe of left foot, limited to breakdown of skin L97.[address] [address] 05/20/2024 Singh Dagoberto [address] [address] 05/29/2024 Singh Dagoberto [address] [address] 06/05/2024 Singh Dagoberto Assessments Encounter Date Diagnosis [...] X ray : Foot, left 3V 05/29/2024 97400- Debride <25 sq cm 06/05/2024 Insurance Providers Payer Name Payer Address Payer Phone Subscriber Number Group Number Insured Name Patient Relationship to Insured Coverage Start Date Coverage End Date Medicare National Govt Svcs Inc [address] [place] [address] [id number] Birgit Wiley Self - patient is the insured [employer] (Unicare) [address] [place] [address] [phone] [id number] [place] , Birgit Self - patient is the insured Medical (General) History Medical History History ICD Code Arthritis Knee Pain Cancer Cataracts Diverticulosis Hypertension Reflux ( GERD) thyroid Hypercholesterolemia Surgical History Surgery Date(Month/Year) Breast Surgery 2018 bunionectomy
--- OUTSIDE RECORDS SUMMARY | 2025-04-06 15:26 | XMS_ITS | Clinical Summary ---
Author Organization [facility] Address [address] [place] [address] Phone Care Team Providers Care Runner On Name Role Phone Atul Sanz NP Primary Care Provider Allergies Active Allergy Reactions Criticality Noted Date Comments Aluminized Plastic 10/06/2024 Nickel 08/28/2018 Causes contact allergy Xgwzama-Hhp-Mrq Reductase Inhibitors 10/29/2023 Medications lisinopriL (PRINIVIL,ZESTR IL) [...] nodules and how their size, shape, and acid changer time affect her level of suspicion [...] of the chest in 6 months at [facility] and we will scan in her [facility]. All questions were answered. Assessment & [...] nodules and how their size, shape, and acid changer time affect her level of suspicion [...] of the chest in 3 months at [facility] and we will scan in her [place] imaging. All questions were answered. We also [...] Encounters Date Type Department Care Team Description 03/08/2025 11:07 AM EDT - 03/08/2025 11:59 PM EDT Hospital Encounter [facility] [address] [address] Encounter for screening mammogram for breast cancer Discharge Disposition: Home or Self Care from Last 3 Months Surgical History Surgery Date Site/Laterality Comments BREAST BIOPSY 02/20/2018 Left PROCEDURE: BX BREAST; PERC NEEDLE CORE W/IMAG GUID; COMMENT: DCIS-high grade BREAST LUMPECTOMY 03/14/2018 Left PROCEDURE: HISTORICAL BREAST LUMPECTOMY; COMMENT: remaining DCIS, ER & [place] positive FOOT SURGERY Left PROCEDURE: HISTORICAL FOOT [...] = 0.6 oz pur e alcohol) Comments No Sex and Gender Information Value Date Recorded Sex Assigned at Female 10/08/2024 12:12 PM EDT Legal Sex Female 11:20 PM EST Gender Identity Female 10/08/2024 12:12 PM EDT Sexual Orientation Not on file Obstetrics History Para Term AB IAB SAB Ectopic Multiple Livin g Live Births 2 Last Filed Vital Signs Vital Sign Reading Time Taken Comments Blood Pressure 150/91 10/21/2024 9:56 AM EDT Pulse 72 10/21/2024 9:56 AM EDT Temperature 36.9 C (98.5 F) 10/21/2024 9:56 AM EDT Respiratory Rate 16 10/21/2024 9:56 AM EDT Oxygen Saturation 99% 10/21/2024 9:56 AM EDT Inhaled Oxygen Concentration - - Weight 54.4 kg (120 lb) 03/08/2025 11:26 AM EDT Height 157.5 cm (5' 2 ) 03/08/2025 11:26 AM EDT Body Mass Index 21.95 03/08/2025 11:26 AM EDT Plan of Treatment Upcoming Encounters Date Type Department Care Team (Late st Contact Info) Description 04/12/2025 11:00 AM EDT Appointment [facility] CT Scan [address] [place] [phone] 04/16/2025 1:30 PM EDT Office Visit Pulmonology - [place] [address] [facility] [address] [place] [address] Daya Ravi MD [address] [place] [address] Health Maintenance Due Date Last Done Comments [...] Procedure Name Priority Date/Time Associated Diagnosis Comments MG MAMMO DIGITAL SCREENING W BETTIE BILAT Routine 03/08/2025 11:32 AM EDT Encounter for screening mammogram for breast cancer from Last 3 Months Results * MG Mammo Digital Screening w Bettie bilat (03/08/2025 11:32 AM EDT) Anatomical Region Laterality Modality Breast Bilateral Mammography 03/08/2025 11:3 6 AM EDT Impressions 03/08/2025 11:43 AM EDT No mammographic evidence of malignancy. A negative mammogram in the presence of a clinically suspicious palpable abnormality does not preclude the possibility of malignancy or alter the indications for biopsy. PQRI CPT II 3342F Code 99342, 13455 PQRI 225 CPT II 7025F TISSUE DENSITY: The breasts are heterogeneously dense, which may obscure small masses. (BI-RADS category C) IMPRESSION: Benign. BI-RADS CATEGORY: 2 - BENIGN RECOMMENDATION: Screening bilateral mammogram is recommended in 1 year. Mammo Location: [facility], [facility], [address] [place] [address] -------- FINAL REPORT -------- Dictated By: Ja Antonio Dictated Date: 03/08/2025 11:36 ET Assigned Physician: Ja Antonio Reviewed and Electronically Signed By: Ja Antonio Signed Date: 03/08/2025 11:43 ET Workstation ID: [id number] Transcribed By: Self Edit Transcribed Date: 03/08/2025 11:37 ET Narrative 03/08/2025 11:43 AM EDT CLINICAL: The patient is a 79 years Female presenting for routine screening mammography. The patient has a personal history of left breast carcinoma which was treated with lumpectomy in 2018, followed by radiation. COMPARISON: Most recently 03/05/2024 and most remotely 02/17/2019. TECHNIQUE: Full-field digital mammography of the breasts bilaterally consisting of tomosynthesis in MLO and CC projection is performed in the Skribite 2000-D unit. Computer aided detection utilizing the iCAD system was utilized. FINDINGS: The breasts are again seen to be composed of a combination of fatty and moderately dense fibroglandular elements. Mild architectural distortion is again seen in the upper-outer quadrant of the left breast, middle depth, representing the lumpectomy scar. A coarse calcification within the scar is again seen. Scattered bilateral benign punctate calcifications, most if not all of which are dermal, are stable. There is no suspicious cluster of microcalcifications, mass, or new area of architectural distortion. There is no skin thickening or nipple retraction. Procedure Note Ja Antonio MD - 03/08/2025 CLINICAL: The patient is a 79 years Female presenting for routinescreening mammography. The patient has a personal history of left breastcarcinoma which was treated with lumpectomy in 2018, followed byradiation. COMPARISON: Most recently 03/05/2024 and most remotely 02/17/2019. TECHNIQUE: Full-field digital mammography of the breasts bilaterallyconsisting of tomosynthesis in MLO and CC projection is performed in theHeroic 2000-D unit. Computer aided detection utilizing the iCADsystem was utilized. FINDINGS: The breasts are again seen to be composed of a combination offatty and moderately dense fibroglandular elements. Mild architecturaldistortion is again seen in the upper-outer quadrant of the left breast,middle depth, representing the lumpectomy scar. A coarse calcificationwithin the scar is again seen. Scattered bilateral benign punctatecalcifications, most if not all of which are dermal, are stable. There isno suspicious cluster of microcalcifications, mass, or new area ofarchitectural distortion. There is no skin thickening or nippleretraction. IMPRESSION: No mammographic evidence of malignancy. A negative mammogram in the presence of a clinically suspicious palpableabnormality does not preclude the possibility of malignancy or alter theindications for biopsy. PQRI CPT II 3342F Code 43298, 53467 PQRI 225 CPT II 7025F TISSUE DENSITY: The breasts are heterogeneously dense, which may obscuresmall masses. (BI-RADS category C) IMPRESSION: Benign. BI-RADS CATEGORY: 2 - BENIGN RECOMMENDATION: Screening bilateral mammogram is recommended in 1 year. Mammo Location: [facility], [facility], [address] [place] [address] -------- FINAL REPORT -------- Dictated By: Ja Antonio Dictated Date: 03/08/2025 11:36 ET Assigned Physician: Ja Antonio Reviewed and Electronically Signed By: Ja Antonio Signed Date: 03/08/2025 11:43 ET Workstation ID: [id number] Transcribed By: Self Edit Transcribed Date: 03/08/2025 11:37 ET us Self Referral Sppl IMG BI PROCEDURES Final Resul t from Last 3 Months Insurance MEDICARE [facility] Care Teams Runner On Relationship Specialty Start Date End Date Atul Sanz NP [address] [facility] [place] PCP - General 06/09/19
--- OUTSIDE RECORDS SUMMARY | 2025-04-06 15:26 | XMS_ITS | Clinical Summary ---
Author Organization [facility] Address [address] [facility] [address] [place] [address] Phone Care Team Providers Care Oxidation Engineer Name Role Phone Atul Sanz NP Primary Care Provider + Saniya Waldrop MD Unavailable [phone] Medications multivit with minerals/lutein (MULTIVITAMIN 50 PLUS [...] care doc She thought I was an corporate law specialist She wants to stay with her current PCP - Mr. Sanz at [facility] Immunizations Immunization Administration Dates Next Due INFLUENZA, SPLIT VIRUS, TRIV ALENT W/ PRESERVATIVE IM 04/22/2013,04/07/2012 Influenza High-Dose Quadriva lent Preservative Free IM 04/20/2021 Influenza High-Dose Trivalen t Preservative Free IM 04/28/2019,04/24/2018,04/29/2017,03/29,04/24/2016,05/02/2015 Influenza Recombinant Blanca valent Preservative Free IM 04/21/2020 Pneumococcal conjugate PCV13 04/24/2018 Pneumococcal polysaccharide PPSV23 [...] 1958 HEPATITIS C SCREENING 1963 OSTEOPOROSIS SCREENING INITIAL (ONE-TIME) 2010 RSV VACCINE (1 - 1-dose 75+ series) 2020 ZOSTER VACCINES (2 of 2) 03/05/2022 01/08/2022 BLOOD PRESSURE 10/21/2022 04/23/2022 DEPRESSION SCREENING 04/23/2023 04/23/2022 INFLUENZA VACCINE (#1) 2025 , 04/21/2020, 04/28/2019, Additional history exists COVID-19 VACCINE ( - season) 2025 09/20/2020, 08/23/2020 PNEUMOCOCCAL VACCINES (50+ years) Completed [...] file Insurance MEDICARE PART A & B [employer] [facility] MEDICARE SUPPLEMENT MEDICARE PART A & B [facility] MEDICARE SUPPLEMENT MEDICARE PART A & B [facility] MEDICARE SUPPLEMENT MEDICARE PART A & B [facility] MEDICARE SUPPLEMENT MEDICARE PART A & B [facility] MEDICARE SUPPLEMENT MEDICARE PART A & B [employer] MEDICARE SUPPLEMENT MEDICARE PART A & B [employer] MEDICARE SUPPLEMENT MEDICARE PART A & B [employer] [place] [address] MEDICARE PART A & B [employer] MEDICARE SUPPLEMENT Care Teams Oxidation Engineer Relationship Specialty Start Date End Date Atul Sanz NP [facility] [place] [address] PCP - General Family Medicine 06/21/21 Saniya Waldrop MD [address] [place] [address] [place] [address] 06/21/21 Additional Source Comments The information contained in this document represents components of the legal health record. It is not the complete legal health record.[facility]
== END 2025-04-06 13:08 | disposition home or self-care (01) ==
LOC: HO.HAP 13:07
PROVIDERS: Visit Provider Nurse Practitioner Family
DX: Z46.1 Encounter for fitting and adjustment of hearing aid (principal); H90.3 Sensorineural hearing loss, bilateral
CPT/HCPCS: 92700; V5261

== ENCOUNTER 2025-04-14 13:31 | Outpatient (REF) | payer MEDICARE, OTHER, SELFPAY ==
--- NOTE | ~2025-04-14 | US_ITS ---
EXAMINATION: US ABDOMEN LIMITED CLINICAL INFORMATION: K82.4 - Cholesterolosis of gallbladder. COMPARISON: 05/22/2024 TECHNIQUE: Real-time imaging of the right upper quadrant abdominal viscera. FINDINGS: PANCREAS: Visualized portions are unremarkable. LIVER: The liver is normal in size. The liver contour is normal. Liver echogenicity is mildly increased. No focal hepatic lesion. There is no intrahepatic biliary duct dilatation seen. GALLBLADDER: There is no gallbladder wall thickening. There is an echogenic focus within the fundus that appears similar to the prior ultrasound. On the prior ultrasound, these were shown to be multiple stones. On the current study, there are not shown to be mobile. COMMON BILE DUCT: Normal in caliber measuring 0.4 cm in diameter. RIGHT KIDNEY: No hydronephrosis. No renal calculi or focal parenchymal lesions. The kidney measures 8.5 cm in maximum dimension. FREE FLUID: None. US/US abdomen limited IMPRESSION: Cholelithiasis. Echogenic focus in the gallbladder fundus demonstrates similar morphology as on the prior examination. On the prior examination, the focus was mobile which was not demonstrated on the current study. The region probably represents the same stones that were demonstrated on the prior ultrasound but now adherent to the wall of the gallbladder. Polyp is not ruled out. Mild changes of hepatic steatosis. Electronically signed by: Boby Gagnon MD 04/14/2025 02:05 PM EDT
--- OUTSIDE RECORDS SUMMARY | 2025-04-14 17:21 | XMS_ITS | Patient Health Record ---
Author Organization [facility] Abdon Wilson Address [address] [facility] [address] [place] [address] Care Team Providers Care Battery Tester Field Name Role Phone Atul Conway Primary Care Provider Unav ailable Singh Arenas Unavailable [phone] Allergies Allergen (clinical drug ingredient) Drug/Non Drug [...] W/U Status Risk Notes Problem Essential hypertension (91076804) Essential hypertension (I10) Active confirmed Vital Signs Blood pressure diastolic 80 mm Hg 07/14/2024 Height 5 ft 2 in in 07/14/2024 Blood pressure systolic 120 mm Hg 07/14/2024 Weight 120 lbs 07/14/2024 BMI 21.95 kg/m2 07/14/2024 Procedures Procedure Date Ordered Date Performed Result Body Sit e 87110- Debride <25 sq cm 06/05/2024 N/A Encounters Encounter Location Date Provider Diagnosis [address] [address] 04/14/2024 Singh Dagoberto Pain in left toe(s) M79.675 ; Other hammer toe(s) (acquired), left foot M20.42 and Arthritis of joint of lesser toe, left M19.[address] [address] 05/29/2024 Singh Dagoberto Skin ulcer of toe of left foot, limited to breakdown of skin L97.521 ; Cellulitis of toe of left foot L03.032 ; Other hammer toe(s) (acquired), left foot M20.42 ; Arthritis of joint of lesser toe, left M19.072 and Pain in left toe(s) M79.[address] [address] 06/05/2024 Singh Dagoberto Skin ulcer of toe of left foot, limited to breakdown of skin L97.521 and Cellulitis of toe of left foot L03.[address] [address] 07/14/2024 Singh Dagoberto Skin ulcer of toe of left foot, limited to breakdown of skin L97.[address] [address] 05/20/2024 Singh Dagoberto [address] [address] 05/29/2024 Singh Dagoberto [address] [address] 06/05/2024 Singh Dagoberto Assessments Encounter Date Diagnosis [...] X ray : Foot, left 3V 05/29/2024 77452- Debride <25 sq cm 06/05/2024 Insurance Providers Payer Name Payer Address Payer Phone Subscriber Number Group Number Insured Name Patient Relationship to Insured Coverage Start Date Coverage End Date Medicare National Govt Svcs Inc [address] [place] [address] [id number] Birgit Wiley Self - patient is the insured [employer] ([employer]) [address] [place] [address] [phone] [id number] Inez , Birgit Self - patient is the insured Medical (General) History Medical History History ICD Code Arthritis Knee Pain Cancer Cataracts Diverticulosis Hypertension Reflux ( GERD) thyroid Hypercholesterolemia Surgical History Surgery Date(Month/Year) Breast Surgery 2018 bunionectomy
--- OUTSIDE RECORDS SUMMARY | 2025-04-14 17:21 | XMS_ITS | Clinical Summary ---
Author Organization [facility] Address [address] [place] [address] Care Team Providers Care Transactional Paralegal Name Role Phone LeslySimone Primary Care Provider [phone] Allergies No known active allergies Medications Medication [...] age to complete this topic Care Teams Transactional Paralegal Relationship Specialty Start Date End Date Simone Grace DO [address] [place] [address] PCP - General 03/25/18
== END 2025-04-14 13:32 | disposition home or self-care (01) ==
LOC: HO.HMGCX 13:31
PROVIDERS: PCP Nurse Practitioner Family; Visit Provider Nurse Practitioner Family
DX: K82.4 Cholesterolosis of gallbladder (principal)
CPT/HCPCS: 76705

== ENCOUNTER → 2025-04-14 13:33 | Outpatient (BNV) | payer MEDICARE, OTHER, SELFPAY | PROVIDERS: PCP Nurse Practitioner Family; Visit Provider Radiology Diagnostic Radiology | DX: K80.20 Calculus of gallbladder without cholecystitis without obstruction (principal) | CPT/HCPCS: 76705 ==

== ENCOUNTER 2025-05-06 11:08 | Outpatient (REF) | payer SELFPAY ==
--- NOTE | 2025-05-06 17:01 | MHC.AU.HA3 ---
Hearing Instrument Follow-Up- Binaural Date of Visit: 05/06/25 Right Ear: Make, Model, Color, Serial Number: Oticon Intent 3 miniRITE-R SN: [id number] Color: Chroma Beige Cryptologic Technician Repair Warranty: 03/28/2028 Cryptologic Technician Loss and Damage Warranty: 03/28/2028 [facility] Service Plan: OPTED OUT Battery Size: Rechargeable Nc Manager/Slim Tube: 3/85 Earmold/Dome/CShell/SlimTip:6mm double hannah dome (no retention tail) Type of Wax Guard: miniFit Dispensed By: [facility] Date of Fittin04/06/2025 Left Ear: Make, Model, Color, Serial Number: Oticon Intent 3 miniRITE-R SN: [id number] Color: Chroma Beige Cryptologic Technician Repair Warranty: 03/28/2028 Cryptologic Technician Loss and Damage Warranty: 03/28/2028 [facility] Service Plan: OPTED OUT Battery Size: Rechargeable Nc Manager/Slim Tube: 2/85 Earmold/Dome/CShell/SlimTip: 6mm double hannah dome (no retention tail) Type of Wax Guard: miniFit Dispensed By: [facility] Date of Fittin04/06/2025 Follow-Up Summary: No issues with left TRIPP. Right TRIPP, however, causing discomfort in EAC, difficult to insert, sounds weaker than left TRIPP. Also does not like SmartCharger, cannot understand how it works, would prefer to go back to Desktop Fish Bin Tender. Listening check demonstrated both HAs amplifying clearly, right does not sound weak. Programming similar in both HAs. Question change in hearing in right ear. Will try 5mm domes to address discomfort - need to be ordered, none in stock. Will also order Desktop Fish Bin Tender to exchange with SmartBirdDogrger. Once domes and health administrator arrive, will schedule one hour appt to recheck puretones to ensure no change in hearing in right ear and readdress discomfort and sound quality of right TRIPP. Recommendations: Patient will be contacted when materials have arrived. Diagnosis Code(s): Primary Diagnosis: H90.3 Bilateral Sensorineural Hearing Loss Signature: Provider: Hugo Best, [facility]
== END 2025-05-06 11:09 | disposition home or self-care (01) ==
LOC: HO.HAP 11:08
PROVIDERS: Visit Provider Nurse Practitioner Family
DX: Z13.89 Encounter for screening for other disorder (principal)

== ENCOUNTER 2025-05-14 07:51 | Outpatient (REF) | payer MEDICARE, OTHER, SELFPAY ==
--- OUTSIDE RECORDS SUMMARY | 2025-05-11 11:45 | XMS_ITS | Encounter Summary ---
Author Organization [facility] Address [address] [place] [address] Care Team Providers Care Cover Remover Name Role Phone Atul Sanz NP Primary Care Provider [phone] Reason for Visit * Reason Comments Advice Only Cholelithiasis Encounter Details Date Type Department Care Team ([facility] st Contact Info) Description 05/11/2025 11:45 AM EDT Consult General Surgery - [address] [place] [address] Katheryn Flynn MD [address] [place] [phone] Social History Tobacco Use Types Packs/Day Years [...] PM EDT Sexual Orientation Not on file documented as of this encounter Last Filed Vital Signs Vital Sign Reading Time Taken Comments Blood Pressure 172/87 05/11/2025 11:51 AM EDT Pulse 70 05/11/2025 11:51 AM EDT Temperature 36.4 C (97.5 F) 05/11/2025 11:51 AM EDT Respiratory Rate - - Oxygen Saturation - - Inhaled Oxygen Concentration - - Weight 54.3 kg (119 lb 12.8 oz) 025 11:51 AM EDT Height 157.5 cm (5' 2 ) 05/11/2025 11:5 1 AM EDT Body Mass Index 21.91 05/11/2025 11:51 AM EDT documented in this encounter Plan of Treatment Not on file documented as of this encounter Visit Diagnoses Not on filedocumented in this encounter Care Teams Cover Remover Relationship Specialty Start Date End Date Atul Sanz NP [address] [place], [place] PCP - General 06/09/19 documented as of this encounter
--- OUTSIDE RECORDS SUMMARY | 2025-05-14 07:53 | XMS_ITS | Encounter Summary ---
Author Organization [facility] Address [address] [place] [address] Care Team Providers Care Grease Buffer Name Role Phone Atul Sanz NP Primary Care Provider Reason for Visit * Reason Onset Date Comments Results 04/26/2025 Encounter Details Date Type Department Care Team ([facility] st Contact Info) Description 04/26/2025 Telephone Gastroenterology - [address] [phone] Chavez Aaron MD [address] [address] Social History Tobacco Use Types Packs/Day Years [...] on file documented as of this encounter Progress Notes * Stephanie Mcgregor MA - 05/04/2025 11:22 AM EDT Pt called left vm with minimal info of results * Stephanie Mcgregor MA - 04/28/2025 10:52 AM EDT U/s is scanned under media under extenal u/s 04/14 * Stephanie Mcgregor MA - 04/26/2025 4:21 PM EDT Spoke to pt over phone , explained the results are under review and that we will call back with results , she did say she brought in a copy of the report , to front office associate , possible scan in media but not sure * Kayla Gonzalez - 04/26/2025 9:33 AM EDT Pt had a U/S done on her gallbladder and would like to speak about results and what her next move will be documented in this encounter Plan of Treatment Not on file documented as of this encounter Visit Diagnoses Not on filedocumented in this encounter Care Teams Grease Buffer Relationship Specialty Start Date End Date Atul Sanz NP [address] [facility] [place] PCP - General 06/09/19 documented as of this encounter
--- OUTSIDE RECORDS SUMMARY | 2025-05-14 07:53 | XMS_ITS | Clinical Summary ---
Author Organization [facility] Address [address] [place] [address] Care Team Providers Care Equity Trader Name Role Phone LeslySimone Primary Care Provider [phone] Allergies No known active allergies Medications Medication [...] age to complete this topic Care Teams Equity Trader Relationship Specialty Start Date End Date Simone Grace DO [address] [place] [address] PCP - General 03/25/18
--- OUTSIDE RECORDS SUMMARY | 2025-05-14 07:53 | XMS_ITS | Clinical Summary ---
Author Organization [facility] Address [address] [place] [address] Phone Care Team Providers Care Worm Farmer Name Role Phone Atul Sanz NP Primary Care Provider [phone] Allergies Active Allergy Reactions Criticality Noted Date Comments Aluminized Plastic 10/06/2024 Nickel 08/28/2018 Causes contact allergy Dsotfgy-Foo-Sih Reductase Inhibitors 10/29/2023 Medications lisinopriL (PRINIVIL,ZESTR IL) [...] nodules and how their size, shape, and chemical cell changer time affect her level of suspicion [...] of the chest in 6 months at [facility] and we will scan in her [facility]. All questions were answered. Assessment [...] nodules and how their size, shape, and chemical cell changer time affect her level of suspicion [...] of the chest in 3 months at [facility] and we will scan in her [place] [facility]. All questions were answered. We also [...] Encounters Date Type Department Care Team Description 05/11/2025 11:45 AM EDT Consult General Surgery - [place] [address] [facility] [address] [place] [phone] Katheryn Flynn MD 04/26/2025 Telephone Gastroenterology - [address] [facility] [address] [facility] [address] [place] [address] Chavez Aaron MD 04/16/2025 1:30 PM EDT Office Visit Pulmonology - [place] [address] [facility] [address] [place] [address] Daya Ravi MD Pulmonary nodules (Primary Dx) 04/12/2025 10:39 AM EDT - 04/12/2025 11:59 PM EDT Hospital Encounter [facility] CT Scan [address] [place] [phone] Pulmonary nodules Discharge Disposition: Home or Self Care 03/08/2025 11:07 AM EDT - 03/08/2025 11:59 PM EDT Hospital En[facility] at [address] [phone] Encounter for screening mammogram for breast cancer Discharge Disposition: Home or Self Care from Last 3 Months Surgical History Surgery Date Site/Laterality Comments BREAST BIOPSY 02/20/2018 Left PROCEDURE: BX BREAST; PERC NEEDLE CORE W/IMAG GUID; COMMENT: DCIS-high grade BREAST LUMPECTOMY 03/14/2018 Left PROCEDURE: HISTORICAL BREAST LUMPECTOMY; COMMENT: remaining DCIS, ER & RI positive FOOT SURGERY Left PROCEDURE: HISTORICAL FOOT [...] F) 05/11/2025 11:51 AM EDT Respiratory Rate 16 10/21/2024 9:56 AM EDT Oxygen Saturation 98% 04/16/2025 1:33 PM EDT Inhaled Oxygen Concentration - - Weight 54.3 kg (119 lb 12.8 oz) 025 11:51 AM EDT Height 157.5 cm (5' 2 ) 05/11/2025 11:5 1 AM EDT Body Mass Index 21.91 05/11/2025 11:51 AM EDT Plan of Treatment Health Maintenance Due [...] BMP Blood Test 07/11/2022 Depression Screening 07/29/2024 Zoster Vaccines Completed 05/15/2022, 01/08/2022 Pneumococcal Vaccine: 50+ Years Completed 05/13/2024, 04/24/2018, 04/22/2013 RSV Immunization Adult Patients Completed 07/06/2024 Influenza Vaccine Completed 04/26/2025, , 04/25/2023, Additional history exists HIB Vaccines Aged Out No longer eligi [...] Diagnosis Comments CT CHEST WO CONTRAST Routine 04/12/2025 10:56 AM EDT Pulmonary nodules MG MAMMO DIGITAL SCREENING W FRANK BILAT Routine 03/08/2025 11:32 AM EDT Encounter for screening mammogram for breast cancer from Last 3 Months Results * CT Chest wo Contrast (04/12/2025 10:56 AM EDT) Anatomical Region Laterality Modality Body Computed Tomogra phy 04/16/2025 3:51 PM EDT Impressions 04/16/2025 3:55 PM EDT Stable pulmonary nodules measuring up to 5 mm in the right middle lobe. No new or suspicious pulmonary nodules. -------- FINAL REPORT -------- Dictated By: TRUNG ROMERO Dictated Date: 04/16/2025 15:51 ET Assigned Physician: TRUNG ROMERO Reviewed and Electronically Signed By: TRUNG ROMERO Signed Date: 04/16/2025 15:55 ET Workstation ID: [id number] Transcribed By: Self Edit Transcribed Date: 04/16/2025 15:51 ET Narrative 04/16/2025 3:55 PM EDT PROCEDURE: Chest CT INDICATION: Pulmonary nodules TECHNIQUE: Chest CT without contrast. Multi planar reformats were created and interpreted. The examination was performed utilizing dose reduction techniques. Total DLP 194 COMPARISON: 10/12/2024 FINDINGS: LUNGS/PLEURA: Central airways are patent. Biapical pleural parenchymal scarring. Linear scarring in the lingula and right middle lobe, stable compared to prior. Right middle lobe nodule measures 5 mm as compared to 5 mm prior. Calcified lingular granuloma is unchanged. Scattered smaller nodules throughout the lungs are also stable compared to prior. No new or suspicious pulmonary nodules. No pleural effusion or pneumothorax. MEDIASTINUM: Thyroid gland is normal. No mediastinal or hilar lymphadenopathy. Esophagus is normal. Left atrial dilation. Severe coronary artery calcifications. No pericardial effusion. CHEST WALL: No axillary lymphadenopathy or superficial hematoma. UPPER ABDOMEN:Colonic diverticulosis. BONES: No acute fracture. Scattered degenerative changes seen throughout the bones. Procedure Note Trung Romero MD - 04/16/2025 PROCEDURE: Chest CT INDICATION: Pulmonary nodules TECHNIQUE: Chest CT without contrast. Multi planar reformats were createdand interpreted. The examination was performed utilizing dose reductiontechniques. Total DLP 194 COMPARISON: 10/12/2024 FINDINGS: LUNGS/PLEURA: Central airways are patent. Biapical pleural parenchymalscarring. Linear scarring in the lingula and right middle lobe, stablecompared to prior. Right middle lobe nodule measures 5 mm as compared to5 mm prior. Calcified lingular granuloma is unchanged. Scattered smallernodules throughout the lungs are also stable compared to prior. No new orsuspicious pulmonary nodules. No pleural effusion or pneumothorax. MEDIASTINUM: Thyroid gland is normal. No mediastinal or hilarlymphadenopathy. Esophagus is normal. Left atrial dilation. Severecoronary artery calcifications. No pericardial effusion. CHEST WALL: No axillary lymphadenopathy or superficial hematoma. UPPER ABDOMEN:Colonic diverticulosis. BONES: No acute fracture. Scattered degenerative changes seen throughoutthe bones. IMPRESSION: Stable pulmonary nodules measuring up to 5 mm in the right middle lobe.No new or suspicious pulmonary nodules. -------- FINAL REPORT -------- Dictated By: TRUNG ROMERO Dictated Date: 04/16/2025 15:51 ET Assigned Physician: TRUNG ROMERO Reviewed and Electronically Signed By: TRUNG ROMERO Signed Date: 04/16/2025 15:55 ET Workstation ID: [id number] Transcribed By: Self Edit Transcribed Date: 04/16/2025 15:51 ET us Gary [facility] IMG CT PROCEDURES Final Result * MG Mammo Digital Screening w Frank bilat (03/08/2025 11:32 AM EDT) Anatomical Region Laterality Modality Breast Bilateral Mammography 03/08/2025 11:3 6 AM EDT Impressions 03/08/2025 11:43 AM EDT No mammographic evidence of malignancy. A negative mammogram in the presence of a clinically suspicious palpable abnormality does not preclude the possibility of malignancy or alter the indications for biopsy. PQRI CPT II 3342F Code 29002, 83807 PQRI 225 CPT II 7025F TISSUE DENSITY: The breasts are heterogeneously dense, which may obscure small masses. (BI-RADS category C) IMPRESSION: Benign. BI-RADS CATEGORY: 2 - BENIGN RECOMMENDATION: Screening bilateral mammogram is recommended in 1 year. Mammo Location: [facility], [address] [place] [address] -------- FINAL REPORT -------- Dictated By: Ja Antonio Dictated Date: 03/08/2025 11:36 ET Assigned Physician: Ja Antonio Reviewed and Electronically Signed By: Ja Antonio Signed Date: 03/08/2025 11:43 ET Workstation ID: [id number] Transcribed By: Self Edit Transcribed Date: 03/08/2025 [...] and CC projection is performed in the [employer] 2000-D unit. Computer aided detection utilizing the VIPTALON system was utilized. FINDINGS: The breasts are [...] MLO and CC projection is performed in theGucashographe 2000-D unit. Computer aided detection utilizing the Dialogicystem was utilized. FINDINGS: The breasts are again [...] for biopsy. PQRI CPT II 3342F Code 35150, 14661 PQRI 225 CPT II 7025F TISSUE DENSITY: The breasts are heterogeneously dense, which may obscuresmall masses. (BI-RADS category C) IMPRESSION: Benign. BI-RADS CATEGORY: 2 - BENIGN RECOMMENDATION: Screening bilateral mammogram is recommended in 1 year. Mammo Location: [facility], [address] [place] [id number] -------- FINAL REPORT -------- Dictated By: Ja Antonio Dictated Date: 03/08/2025 11:36 ET Assigned Physician: Ja Antonio Reviewed and Electronically Signed By: Ja Antonio Signed Date: 03/08/2025 11:43 ET Workstation ID: [id number] Transcribed By: Self Edit Transcribed Date: 03/08/2025 11:37 ET us Self Referral Sppl IMG BI PROCEDURES Final Resul t from Last 3 Months Insurance MEDICARE [facility] Care Teams Worm Farmer Relationship Specialty Start Date End Date Atul Sanz NP [address] [facility] [place] PCP - General 06/09/19
--- OUTSIDE RECORDS SUMMARY | 2025-05-14 07:53 | XMS_ITS | Clinical Summary ---
Author Organization [facility] Address [address] [facility] [address] [place] [address] Phone Care Team Providers Care Community Nurse Name Role Phone Atul Sanz NP Primary Care Provider + Saniya Waldrop MD Unavailable [phone] Medications multivit with minerals/lutein (MULTIVITAMIN 50 PLUS [...] care doc She thought I was an workforce specialist She wants to stay with her current PCP - Mr. Sanz at [facility] Immunizations Immunization Administration Dates Next Due INFLUENZA, [...] Last Done Comments Adult Td,Tdap Booster 1945 BLOOD PRESSURE 1945 CREATININE LEVEL 1945 LIPID PANEL 1945 POTASSIUM LEVEL 1945 TSH LEVEL 1945 SMOKING Hx and SMOKELESS TOBACCO SCREENING 1958 HEPATITIS C SCREENING 1963 OSTEOPOROSIS SCREENING INITIAL (ONE-TIME) 2010 RSV VACCINE (1 - 1-dose 75+ series) 2020 ZOSTER VACCINES (2 of 2) 03/05/2022 01/08/2022 DEPRESSION SCREENING 04/23/2023 04/23/2022 INFLUENZA VACCINE (#1) 2025 , 04/21/2020, 04/28/2019, Additional history exists COVID-19 VACCINE (2024- season) 2025 09/20/2020, 08/23/2020 PNEUMOCOCCAL VACCINES (50+ [...] file Insurance MEDICARE PART A & B [employer] [place] [id number] MEDICARE PART A & B [employer] MEDICARE SUPPLEMENT MEDICARE PART A & B [facility] EXTENSION MEDICARE SUPPLEMENT MEDICARE PART A & B [facility] [place] [id number] MEDICARE PART A & B [facility] [place] [id number] MEDICARE PART A & B [employer] [place] [id number] MEDICARE PART A & B [employer] EXTENSION MEDICARE SUPPLEMENT MEDICARE PART A & B [employer] MEDICARE SUPPLEMENT MEDICARE PART A & B [employer] MEDICARE SUPPLEMENT Care Teams Community Nurse Relationship Specialty Start Date End Date Atlu Sanz NP [address] [place] [address] [place] [address] PCP - General Family Medicine 06/21/21 Saniya Waldrop MD [address] [place] [address] [place] [address] 06/21/21 Additional Source Comments The information contained in this document represents components of the legal health record. It is not the complete legal health record.[facility]
--- OUTSIDE RECORDS SUMMARY | 2025-05-14 07:54 | XMS_ITS | Patient Health Record ---
Author Organization [facility] Abdon Wilson Address [address] [facility] Jasbir [place]gar[place] [address] Care Team Providers Care Transplant Immunologist Name Role Phone Atul Conway Primary Care Provider Unav ailable Singh Arenas Unavailable [phone] Allergies Allergen (clinical drug ingredient) Drug/Non Drug [...] W/U Status Risk Notes Problem Essential hypertension (90562201) Essential hypertension (I10) Active confirmed Vital Signs Blood pressure diastolic 80 mm Hg 07/14/2024 Height 5 ft 2 in in 07/14/2024 Blood pressure systolic 120 mm Hg 07/14/2024 Weight 120 lbs 07/14/2024 BMI 21.95 kg/m2 07/14/2024 Procedures Procedure Date Ordered Date Performed Result Body Sit e 01475- Debride <25 sq cm 06/05/2024 N/A Encounters Encounter Location Date Provider Diagnosis [address] [address] 05/29/2024 Singh Dagoberto Skin ulcer of toe of left foot, limited to breakdown of skin L97.521 ; Cellulitis of toe of left foot L03.032 ; Other hammer toe(s) (acquired), left foot M20.42 ; Arthritis of joint of lesser toe, left M19.072 and Pain in left toe(s) M79.[address] [address] 06/05/2024 Singh Dagoberto Skin ulcer of toe of left foot, limited to breakdown of skin L97.521 and Cellulitis of toe of left foot L03.[address] [address] 07/14/2024 Singh Dagoberto Skin ulcer of toe of left foot, limited to breakdown of skin L97.[address] [address] 05/20/2024 Singh Arenas [address] [address] 05/29/2024 Singh Arenas [address] [address] 06/05/2024 Singh Dagoberto Assessments Encounter Date Diagnosis [...] - L97.521) Response to treatment - Improvement 05/29/2024 Cellulitis of toe of left foot [...] X ray : Foot, left 3V 05/29/2024 34760- Debride <25 sq cm 06/05/2024 Insurance Providers Payer Name Payer Address Payer Phone Subscriber Number Group Number Insured Name Patient Relationship to Insured Coverage Start Date Coverage End Date Medicare National Govt Svcs Inc [address] [place] [address] [id number] Birgit Wiley Self - patient is the insured [facility]-Human Patients[facility]) [address] [place] [address] [id number] Birgit Wiley Self - patient is the insured Medical (General) History Medical History History ICD Code Arthritis Knee Pain Cancer Cataracts Diverticulosis Hypertension Reflux ( GERD) thyroid Hypercholesterolemia Surgical History Surgery Date(Month/Year) Breast Surgery 2018 bunionectomy
[2025-05-14 10:01] LABS: MANUAL DIFF FLAG NO
[2025-05-14 10:05] LABS: Hematocrit 40.9 % (37.0-47.0); Hemoglobin 13.2 g/dl (12.0-16.0); Imm Gran Abs Auto 0.01 X10*3/uL (0.00-0.03); Imm Gran Pct Auto 0.2 % (0.0-0.4); Lymphocytes Absolute Auto 1.2 X10*3/uL (1.2-4.9); Mean Corpuscular HGB Conc 32.3 g/dl (31.0-35.0); Mean Corpuscular Hemoglobin 30.3 pg (27.0-33.0); Mean Corpuscular Volume 93.8 fL (80.0-98.0); NRBC Abs Auto 0.000 X10*3/uL (0.0-0.012); NRBC Pct Auto 0.0 /100WBC (0.0-0.2); Platelet Count 234 X10*3/uL (160-400); Red Blood Count 4.36 X10*6/uL (4.20-5.50); White Blood Count 4.3 X10*3/uL (4.8-10.8)
[2025-05-14 10:11] LABS: Appearance Urine Clear; Glucose Urine UA Negative (Negative); PH 6.0 (5.0-9.0); Specific Gravity - Urine 1.015 (1.005-1.025); UMIC TRIGGER UACC YES
[2025-05-14 10:22] LABS: UACC Culture Trigger YES
[2025-05-14 12:50] LABS: Anion Gap 10 (12-20)
[2025-05-14 12:55] LABS: Alanine Aminotransferase 15 U/L (0-31); Albumin Level 3.9 g/dL (3.5-5.0); Alkaline Phosphatase 52 U/L (39-117); Aspartate Amino Transferase 23 U/L (5-31); Blood Urea Nitrogen 14 mg/dL (9-16); Calcium 9.1 mg/dL (8.4-10.2); Carbon Dioxide 30 mmol/L (22-29); Chloride 107 mmol/L (96-108); Cholesterol 212 mg/dL (<200); Estimated Glomerular Filt Rate > 60; HDL Cholesterol 64 mg/dL (>40); Potassium 4.3 mmol/L (3.3-5.1); Sodium 143 mmol/L (135-145); Total Protein 6.2 g/dL (6.5-8.0); Triglycerides 113 mg/dL (<150)
[2025-05-14 14:22] LABS: Folate 13.0 ng/mL (> or = 4.0); Vitamin B12 382 pg/mL (200-900)
== END 2025-05-14 07:52 | disposition home or self-care (01) ==
LOC: HO.HMGCLDS 07:51
PROVIDERS: PCP Nurse Practitioner Family; Visit Provider Nurse Practitioner Family
DX: I10 Essential (primary) hypertension (principal); E53.8 Deficiency of other specified B group vitamins; E78.5 Hyperlipidemia, unspecified; E55.9 Vitamin D deficiency, unspecified
CPT/HCPCS: 36415; 80053; 80061; 81001; 82306; 82607; 82746; 84443; 85025; 87086

== ENCOUNTER 2025-05-26 14:06 | Outpatient (AMB) | payer MEDICARE, OTHER, SELFPAY ==
--- NOTE | 2025-05-26 14:12 | A.OFFVIS_ITS ---
Vital Signs 05/26/25 14:13 Height 5 ft 2 in Weight 119 lb 7.849 oz BMI 21.9 BP 152/86 H Blood Pressure Location Lt brachial Position Sitting Pulse 72 Pulse Source Pulse Oximeter Pulse Oximetry (%) 98 Oxygen Delivery Method Room Air Intake Visit Reasons: Cholesterolosis of gallbladder Intake Note: New pt for initial eval of epigastric pain. Currently on PPI therapy per pcp. CC; C.O. RUQ + Epigastric pain. Pt is taking PPI 3xW PRN with moderate relief. Pt also reports having recent abd US which confirmed gallstones. Edge Finisher Required: No Accompanied by: Self / Same As Patient Allergies Uetillh-POX-TdB Reductase Inhibitor Allergy (Mild, Verified 06/07/25 08:35) cannot tolerate HPI HPI Cholesterolosis of gallbladder: Details: Patient is here today for initial consultation. Patient was sent to us by her PCP for evaluating of her right upper quadrant pain and cholelithiasis. Patient has seen General surgery on the of this month. Patient was evaluated, ultrasounds and CT scans were reviewed by general surgeon and determined that surgery is not an needed. Patient's symptoms are mostly epigastric pain at that time. Today patient presents with postprandial not using pain and acid reflux. Acid reflux is semi controlled with PPI that she currently uses about 3 to 4 times a day. Patient is trying to be very careful with what she eats. She is eating low fat diet. Does not indulge in in anything heavy, however she still will have epigastric pain. Nonmobile stone and possible gallbladder polyp found without cholecystitis. Patient denies any nausea or vomiting. Reports that she is moving her bowels without any issues. Patient does report increase in the anxiety about this as she experiencing increased discomfort. Patient reports also abdominal bloating postprandially. [facility] Medical History New onset a-fib Paroxysmal atrial fibrillation Biliary dyskinesia Hx of radiation therapy COVID-19 vaccine series completed Arthritis Osteoarthritis DDD (degenerative disc disease) Dyskinesia of gallbladder GERD (gastroesophageal reflux disease) Ductal carcinoma in situ (DCIS) of left breast Dyslipidemia Anxiety Osteopenia HTN (hypertension) Hypothyroid Surgical History Hx of left cataract extraction History of esophagogastroduodenoscopy (EGD) Hx of blepharoplasty Breast cancer History of ace toe correction Family History Father HTN (hypertension) CAD (coronary artery disease) Mother No problems noted. Brother CAD (coronary artery disease) Afib Social History [facility] Are you a primary home care music therapist to a significant other at home: No Do you presently have visiting nurse or other home services: No Alcohol intake: current Patient Tobacco Use Status: Former Tobacco user Tobacco use type: Cigarette e-Cigarette/Vaping Use: Never Used Second Hand Smoke Exposure: No Advance Directives Date on File: 05/15/21 Current occupational status: retired Cognitive needs: No Hearing needs: No Vision needs: No Review of Systems Const Denies weight gain and Denies weight loss ENT Reports no additional complaints, Denies dysphagia and Denies odynophagia Card Reports no additional complaints Resp Reports no additional complaints GI Reports abdominal pain (RUQ), Denies belching, Denies melena, Reports bloating, Denies change in bowel habits, Denies dysphagia, Denies excessive flatus, Denies dyspepsia, Reports heartburn, Denies diarrhea, Denies loose stools, Denies nausea, Denies odynophagia and Denies vomiting Reports no additional complaints Musc Reports no additional complaints Neuro Reports no additional complaints Psych Reports no additional complaints Endo Reports no additional complaints Physical Exam Vital Signs: Last Vital Signs Pulse 72 05/26/25 14:13 BP 152/86 H 05/26/25 14:13 Pulse Ox 98 05/26/25 14:13 Oxygen Delivery Method Room Air 05/26/25 14:13 BMI result Body Mass Index 21.9 Const General: healthy appearing, no acute distress and well developed Nutritional Appearance: well nourished Orientation/consciousness: patient oriented x3 Resp Effort & Inspection: normal respiratory effort, able to speak in complete sentences, no tracheal deviation and symmetric chest movement Auscultation: clear to auscultation bilaterally Cardio Rate: regular rate GI Inspection: Yes normal to inspection and No distended Palpation (GI): Soft to palpation, not firm, nontender and No hepatosplenomegaly present Auscultation: normal bowel sounds General: Yes no CVA tenderness Back/Spine/Pelvis Back: no CVA tenderness Skin General skin exam: elasticity normal, turgor normal and dry skin Neuro General: patient oriented x3 Psych Appearance: grossly normal Mental Status: mental status grossly normal Assessment & Plan Assessment & Plan (1) GERD (gastroesophageal reflux disease): Code(s): K21.9 - Gastro-esophageal reflux disease without esophagitis Category: Medical Qualifiers: Esophagitis presence: esophagitis presence not specified Qualified Code (s): K21.9 - Gastro-esophageal reflux disease without esophagitis (2) Elevated liver enzymes: Code(s): R74.8 - Abnormal levels of other serum enzymes Category: Medical (3) Gallbladder polyp: Code(s): K82.4 - Cholesterolosis of gallbladder Category: Medical (4) Epigastric discomfort: Code(s): R10.13 - Epigastric pain Category: Medical (5) Postprandial abdominal bloating: Code(s): R14.0 - Abdominal distension (gaseous) Plan Discussed with patient avoiding dietary triggers. Patient can take PPI daily before breakfast, will check transglutaminase and lipase to rule out celiac versus chronic pancreatitis. Possibility for biliary dyskinesia, will check HIDA scan. Patient was encouraged to follow low-fat diet for now. Message sent to nuclear medicine to try to bulk patient for testing as soon as possible. Patient will follow-up in our office in 2-3 months. She will call us if she will have worsening GI symptoms. Patient is agreeable to current plan of care and verbalizes understanding of instructions. She was given the opportunity to ask questions and all questions answered. Thank you for allowing me to participate in her care Orders: Orders Transglutaminase IgA 05/26/25 R10.9 - Unspecified abdominal pain Lipase 05/26/25 R10.9 - Unspecified abdominal pain NM hepatobiliary w pharm 05/31/25 R10.11 - Right upper quadrant pain Coding Level of Care Code New Pt Level 4 (32412) Diagnoses Gastroesophageal reflux disease, unspecified whether esophagitis present K21.9 Esophagitis presence: esophagitis presence not specified Elevated liver enzymes R74.8 Gallbladder polyp K82.4 Epigastric discomfort R10.13 Postprandial abdominal bloating R14.0 Time Spent (min) 50 Comment 35 minutes spent with patient and additional 15 minutes spent reviewing her records
[2025-05-26 14:13] VITALS: BP 152/86; PULSE 72; O2SAT 98; BMI 21.9
--- OUTSIDE RECORDS SUMMARY | 2025-05-26 18:07 | XMS_ITS | Encounter Summary ---
Author Organization [facility] Address [address] [place] [address] Care Team Providers Care Steel Erector Apprentice Name Role Phone Atul Sanz NP Primary Care Provider Reason for Visit * Reason Onset Date Comments Results 04/26/2025 Encounter Details Date Type Department Care Team ([facility] st Contact Info) Description 04/26/2025 Telephone Gastroenterology - [address] [place] [phone] Chavez Aaron MD [address] [place] [phone] Social History Tobacco Use Types Packs/Day Years [...] copy of the report , to front worker , possible scan in media but not sure * Kayla Gonzalez - 04/26/2025 9:33 AM EDT Pt had a U/S done on her gallbladder and would like to speak about results and what her next move will be documented in this encounter Plan of Treatment Not on file documented as of this encounter Visit Diagnoses Not on filedocumented in this encounter Care Teams Steel Erector Apprentice Relationship Specialty Start Date End Date Atul Sanz NP [address] [facility] [place] PCP - General 06/09/19 documented as of this encounter
--- OUTSIDE RECORDS SUMMARY | 2025-05-26 18:07 | XMS_ITS | Clinical Summary ---
Author Organization [facility] Address [address] [place] [address] Phone Care Team Providers Care Jewelsmith Name Role Phone Atul Sanz NP Primary Care Provider Allergies Active Allergy Reactions Criticality Noted Date Comments Aluminized Plastic 10/06/2024 Nickel 08/28/2018 Causes contact allergy Blgsvxa-Mts-Ptg Reductase Inhibitors 10/29/2023 Medications lisinopriL (PRINIVIL,ZESTR IL) [...] nodules and how their size, shape, and exchange consultant time affect her level of suspicion for [...] of the chest in 6 months at [facility] and we will scan in her [facility]. All questions were answered. Assessment & [...] nodules and how their size, shape, and exchange consultant time affect her level of suspicion for [...] of the chest in 3 months at [facility] and we will scan in her [facility]. All questions were answered. We also [...] 11:45 AM EDT Consult General Surgery - [place] [address] [facility] [address] [place] [phone] Katheryn Flynn MD Epigastric pain (Primary Dx); Anxiety; Calculus of gallbladder without cholecystitis without obstruction 04/26/2025 Telephone Gastroenterology - [address] [facility] [address] [facility] [address] [place] [phone] Chavez Aaron MD 04/16/2025 1:30 PM EDT Office Visit Pulmonology - [place] [address] [facility] [address] [place] [phone] Daya Ravi MD Pulmonary nodules (Primary Dx) 04/12/2025 10:39 AM EDT - 04/12/2025 11:59 PM EDT Hospital Encounter [facility] CT Scan [address] [place] [phone] Pulmonary nodules Discharge Disposition: Home or Self Care 03/08/2025 11:07 AM EDT - 03/08/2025 11:59 PM EDT Hospital Encounter [facility] [address] [place] [phone] Encounter for screening mammogram for breast cancer Discharge Disposition: Home or Self Care from Last 3 Months Surgical History Surgery Date Site/Laterality Comments BREAST BIOPSY 02/20/2018 Left PROCEDURE: BX BREAST; PERC NEEDLE CORE W/IMAG GUID; COMMENT: DCIS-high grade BREAST LUMPECTOMY 03/14/2018 Left PROCEDURE: HISTORICAL BREAST LUMPECTOMY; COMMENT: remaining DCIS, ER & OR positive FOOT SURGERY Left PROCEDURE: HISTORICAL FOOT [...] Pulmonary nodules MG MAMMO DIGITAL SCREENING W BETTIE BILAT [...] nodules. -------- FINAL REPORT -------- Dictated By: JEANNE ROMERO Dictated Date: 04/16/2025 15:51 ET Assigned Physician: JEANNE ROMERO Reviewed and Electronically Signed By: JEANNE ROMERO Signed Date: 04/16/2025 15:55 ET Workstation ID: [id number] Transcribed By: Self Edit Transcribed Date: 04/16/2025 [...] changes seen throughout the bones. Procedure Note Jeanne Romero MD - 04/16/2025 PROCEDURE: Chest CT [...] nodules. -------- FINAL REPORT -------- Dictated By: JEANNE ROMERO Dictated Date: 04/16/2025 15:51 ET Assigned Physician: JEANNE ROMERO Reviewed and Electronically Signed By: JEANNE ROMERO Signed Date: 04/16/2025 15:55 ET Workstation ID: [id number] Transcribed By: Self Edit Transcribed Date: 04/16/2025 15:51 ET us Gary HODGSON IMG CT PROCEDURES Final Result * MG Mammo Digital Screening w Bettie [...] for biopsy. PQRI CPT II 3342F Code 53602, 70209 PQRI 225 CPT II 7025F TISSUE DENSITY: The breasts are heterogeneously dense, which may obscure small masses. (BI-RADS category C) IMPRESSION: Benign. BI-RADS CATEGORY: 2 - BENIGN RECOMMENDATION: Screening bilateral mammogram is recommended in 1 year. Mammo Location: [facility], [address] [place] [address] -------- FINAL REPORT -------- Dictated By: Ja Antonio Dictated Date: 03/08/2025 11:36 ET Assigned Physician: Ja Antonio Reviewed and Electronically Signed By: Ja Antonio Signed Date: 03/08/2025 11:43 ET Workstation ID: [id number] Transcribed By: Self Edit Transcribed Date: 03/08/2025 [...] and CC projection is performed in the [employer]!Weare 2000-D unit. Computer aided detection utilizing the [...] MLO and CC projection is performed in theSnapverseographe 2000-D unit. Computer aided detection utilizing the Anzuystem was utilized. FINDINGS: The breasts are again [...] for biopsy. PQRI CPT II 3342F Code 04482, 75195 PQRI 225 CPT II 7025F TISSUE DENSITY: The breasts are heterogeneously dense, which may obscuresmall masses. (BI-RADS category C) IMPRESSION: Benign. BI-RADS CATEGORY: 2 - BENIGN RECOMMENDATION: Screening bilateral mammogram is recommended in 1 year. Mammo Location: [facility], [facility], [address] [place] [address] -------- FINAL REPORT -------- Dictated By: Ja Antonio Dictated Date: 03/08/2025 11:36 ET Assigned Physician: Ja Antonio Reviewed and Electronically Signed By: Ja Antonio Signed Date: 03/08/2025 11:43 ET Workstation ID: [id number] Transcribed By: Self Edit Transcribed Date: 03/08/2025 11:37 ET us Self Referral Sppl IMG BI PROCEDURES Final Resul t from Last 3 Months Insurance MEDICARE [facility] Care Teams Jewelsmith Relationship Specialty Start Date End Date Atul Sanz NP [address] [facility] [place] PCP - General 06/09/19
--- OUTSIDE RECORDS SUMMARY | 2025-05-26 18:07 | XMS_ITS | Patient Health Record ---
Author Organization [facility] Address [address] [facility] [place]bir [place] [address] Care Team Providers Care Front Desk Admin Name Role Phone Atul Conway Primary Care Provider Unav ailable Singh Arenas Unavailable [phone] Allergies Allergen (clinical drug ingredient) Drug/Non Drug [...] W/U Status Risk Notes Problem Essential hypertension (96514559) Essential hypertension (I10) Active confirmed Vital Signs Blood pressure diastolic 80 mm Hg 07/14/2024 Height 5 ft 2 in in 07/14/2024 Blood pressure systolic 120 mm Hg 07/14/2024 Weight 120 lbs 07/14/2024 BMI 21.95 kg/m2 07/14/2024 Procedures Procedure Date Ordered Date Performed Result Body Sit e 60706- Debride <25 sq cm 06/05/2024 N/A Encounters Encounter Location Date Provider Diagnosis [address] [address] 05/29/2024 Singhclara StrongDagoberto Skin ulcer of toe of left foot, limited to breakdown of skin L97.521 ; Cellulitis of toe of left foot L03.032 ; Other hammer toe(s) (acquired), left foot M20.42 ; Arthritis of joint of lesser toe, left M19.072 and Pain in left toe(s) M79.[address] [address] 06/05/2024 Singh Arenas Skin ulcer of toe of left foot, limited to breakdown of skin L97.521 and Cellulitis of toe of left foot L03.[address] [address] 07/14/2024 Singh Arenas Skin ulcer of toe of left foot, limited to breakdown of skin L97.[address] [address] 05/29/2024 Singh Arenas [address] [address] 06/05/2024 Singh Arenas Assessments Encounter Date Diagnosis [...] X ray : Foot, left 3V 05/29/2024 37879- Debride <25 sq cm 06/05/2024 Insurance Providers Payer Name Payer Address Payer Phone Subscriber Number Group Number Insured Name Patient Relationship to Insured Coverage Start Date Coverage End Date Medicare National Govt Svcs Inc [address] [facility] [place] [address] [id number] Birgit Wiley Self - patient [facility] the insured [facility] [address] [place] [address] [id number] Birgit Wiley Self - patient is the insured Medical (General) History Medical History History ICD Code Arthritis Knee Pain Cancer Cataracts Diverticulosis Hypertension Reflux ( GERD) thyroid Hypercholesterolemia Surgical History Surgery Date(Month/Year) Breast Surgery 2018 bunionectomy
--- OUTSIDE RECORDS SUMMARY | 2025-05-26 18:07 | XMS_ITS | Clinical Summary ---
Author Organization [facility] Address [address] [place] [address] Care Team Providers Care Finish Specialist Name Role Phone LeslySimone Primary Care Provider [phone] Allergies No known active allergies Medications Medication [...] age to complete this topic Care Teams Finish Specialist Relationship Specialty Start Date End Date Simone Grace DO [address] [place] [address] PCP - General 03/25/18
== END 2025-05-26 14:51 | disposition home or self-care (01) ==
LOC: HO.HGI 14:07
PROVIDERS: PCP Nurse Practitioner Family; Visit Provider Nurse Practitioner Family
DX: K21.9 Gastro-esophageal reflux disease without esophagitis (principal); R74.8 Abnormal levels of other serum enzymes; K82.4 Cholesterolosis of gallbladder; R10.13 Epigastric pain; R14.0 Abdominal distension (gaseous)
CPT/HCPCS: 99204

== ENCOUNTER → 2025-05-26 14:06 | Outpatient (BNVA) | payer MEDICARE, OTHER, SELFPAY | PROVIDERS: PCP Nurse Practitioner Family; Visit Provider Nurse Practitioner Family | DX: R10.13 Epigastric pain (principal); K82.4 Cholesterolosis of gallbladder; K21.9 Gastro-esophageal reflux disease without esophagitis; R74.8 Abnormal levels of other serum enzymes; R14.0 Abdominal distension (gaseous); I10 Essential (primary) hypertension; Z87.891 Personal history of nicotine dependence | CPT/HCPCS: 99202 ==

== ENCOUNTER → 2025-05-31 09:26 | Outpatient (REF) | payer MEDICARE, OTHER, SELFPAY ==
--- NOTE | ~2025-05-31 | NM_ITS ---
EXAMINATION: NM HEPATOBILIARY WITH PHARM HISTORY: R10.11 - Right upper quadrant pain. TECHNIQUE: An hepatobiliary scan was performed following the intravenous administration of 5 mCi technetium 99m-mebrofenin. Sequential images were obtained over 1 hour. Subsequently, the patient received 1.1 microgram of IV CCK over 30 minutes and additional imaging was performed. COMPARISON: Comparison is made with the prior examination dated 03/20/2019. Correlation is also made with an abdominal ultrasound dated 04/14/2025. FINDINGS: There is normal uptake and excretion of the radiopharmaceutical by the liver. Gallbladder activity is noted at 26 minutes. Common bile duct activity is seen at 20 minutes. Small bowel activity is noted at 61 minutes. After the administration of intravenous CCK, the estimated gallbladder ejection fraction is 7%, which is abnormally low (normal 35-80%), suggestive of biliary dyskinesia. NM/NM hepatobiliary w pharm IMPRESSION: Abnormally low ejection fraction of 7%, compatible with biliary dyskinesia. Electronically signed by: Joselito Corona MD 05/31/2025 12:33 PM [facility]
--- OUTSIDE RECORDS SUMMARY | 2025-05-31 10:37 | XMS_ITS | Clinical Summary ---
Author Organization [facility] Address [address] [place] [address] Phone Care Team Providers Care Cattle Sprayer Name Role Phone Atul Sanz NP Primary Care Provider Allergies Active Allergy Reactions Criticality Noted Date Comments Aluminized Plastic 10/06/2024 Nickel 08/28/2018 Causes contact allergy Zmyicqa-Aqz-Xlo Reductase Inhibitors 10/29/2023 Medications lisinopriL (PRINIVIL,ZESTR IL) [...] of the chest in 6 months at [facility] and we will scan in her [facility]. All questions were answered. Assessment & Plan [...] of the chest in 3 months at [facility] and we will scan in her [facility]. All questions were answered. We also [...] 11:45 AM EDT Consult General Surgery - [place] [address] [facility] [address] [place] [phone] Katheryn Flynn MD Epigastric pain (Primary Dx); Anxiety; Calculus of gallbladder without cholecystitis without obstruction 04/26/2025 Telephone Gastroenterology - [facility] [address] [facility] [address] [place] [phone] Chavez Aaron MD 04/16/2025 1:30 PM EDT Office Visit Pulmonology - [place] [address] [facility] [address] [place] [phone] Daya Ravi MD Pulmonary nodules (Primary Dx) 04/12/2025 10:39 AM EDT - 04/12/2025 11:59 PM EDT Hospital Encounter [facility] CT Scan [address] [place] [phone] Pulmonary nodules Discharge Disposition: Home or Self Care 03/08/2025 11:07 AM EDT - 03/08/2025 11:59 PM EDT Hospital Encounter [facility] [address] [place] [phone] Encounter for screening mammogram for breast cancer Discharge Disposition: Home or Self Care from Last 3 Months Surgical History Surgery Date Site/Laterality Comments BREAST BIOPSY 02/20/2018 Left PROCEDURE: BX BREAST; PERC NEEDLE CORE W/IMAG GUID; COMMENT: DCIS-high grade BREAST LUMPECTOMY 03/14/2018 Left PROCEDURE: HISTORICAL BREAST LUMPECTOMY; COMMENT: remaining DCIS, ER & CT positive FOOT SURGERY Left PROCEDURE: HISTORICAL FOOT [...] Signed Date: 04/16/2025 15:55 ET Workstation ID: [id number] Transcribed By: Self Edit Transcribed Date: 04/16/2025 [...] Signed Date: 04/16/2025 15:55 ET Workstation ID: [id number] Transcribed By: Self Edit Transcribed Date: 04/16/2025 [...] for biopsy. PQRI CPT II 3342F Code 18731, 89881 PQRI 225 CPT II 7025F TISSUE DENSITY: The breasts are heterogeneously dense, which may obscure small masses. (BI-RADS category C) IMPRESSION: Benign. BI-RADS CATEGORY: 2 - BENIGN RECOMMENDATION: Screening bilateral mammogram is recommended in 1 year. Mammo Location: [facility], [address] [place] [address] -------- FINAL REPORT -------- Dictated By: Ja Antonio Dictated Date: 03/08/2025 11:36 ET Assigned Physician: Ja Antonio Reviewed and Electronically Signed By: Ja Antonio Signed Date: 03/08/2025 11:43 ET Workstation ID: [id number] Transcribed By: Self Edit Transcribed Date: 03/08/2025 [...] and CC projection is performed in the ELVPHDe 2000-D unit. Computer aided detection utilizing the [...] MLO and CC projection is performed in theKumoographe 2000-D unit. Computer aided detection utilizing the FancyBoxystem was utilized. FINDINGS: The breasts are again [...] for biopsy. PQRI CPT II 3342F Code 01439, 05502 PQRI 225 CPT II 7025F TISSUE DENSITY: The breasts are heterogeneously dense, which may obscuresmall masses. (BI-RADS category C) IMPRESSION: Benign. BI-RADS CATEGORY: 2 - BENIGN RECOMMENDATION: Screening bilateral mammogram is recommended in 1 year. Mammo Location: [facility], [facility], [address] [place] [address] -------- FINAL REPORT -------- Dictated By: Ja Antonio Dictated Date: 03/08/2025 11:36 ET Assigned Physician: Ja Antonio Reviewed and Electronically Signed By: Ja Antonio Signed Date: 03/08/2025 11:43 ET Workstation ID: [id number] Transcribed By: Self Edit Transcribed Date: 03/08/2025 11:37 ET us Self Referral Sppl IMG BI PROCEDURES Final Resul t from Last 3 Months Insurance MEDICARE [facility] Care Teams Cattle Sprayer Relationship Specialty Start Date End Date Atul Sanz NP [address] [facility] [place] PCP - General 06/09/19
--- OUTSIDE RECORDS SUMMARY | 2025-05-31 10:37 | XMS_ITS | Clinical Summary ---
Author Organization [facility] Address [address] [place] [address] Care Team Providers Care Verify Rep Name Role Phone LeslySimone Primary Care Provider [phone] Allergies No known active allergies Medications Medication [...] age to complete this topic Care Teams Verify Rep Relationship Specialty Start Date End Date Simone Grace DO [address] [place] [address] PCP - General 03/25/18
--- OUTSIDE RECORDS SUMMARY | 2025-05-31 10:37 | XMS_ITS | Clinical Summary ---
Author Organization [facility] Address [address] [facility] [address] [place] [address] Phone Care Team Providers Care Court Monitor Name Role Phone Atul Sanz NP Primary Care Provider + Saniya Waldrop MD Unavailable [phone] Medications multivit with minerals/lutein (MULTIVITAMIN 50 PLUS [...] care doc She thought I was an office services specialist She wants to stay with her current PCP - Mr. Sanz at [facility] Immunizations Immunization Administration Dates Next Due [...] file Insurance MEDICARE PART A & B [place] [id number] MEDICARE PART A & B [employer] MEDICARE SUPPLEMENT MEDICARE PART A & B [facility] EXTENSION MEDICARE SUPPLEMENT MEDICARE PART A & B [facility] [id number] MEDICARE PART A & [place] [address] MEDICARE PART A & B [place] [place] [address] MEDICARE PART A & B [place] [employer] MEDICARE SUPPLEMENT MEDICARE PART A & B [employer] MEDICARE SUPPLEMENT MEDICARE PART A & B [employer] MEDICARE SUPPLEMENT Care Teams Court Monitor Relationship Specialty Start Date End Date Atul Sanz NP [address] [place] [address] [place] [address] PCP - General Family Medicine 06/21/21 Saniya Waldrop MD [address] [place] [address] [place] [address] 06/21/21 Additional Source Comments The information contained in this document represents components of the legal health record. It is not the complete legal health record.[facility]
--- OUTSIDE RECORDS SUMMARY | 2025-05-31 10:37 | XMS_ITS | Encounter Summary ---
Author Organization [facility] Address [address] [place] [address] Care Team Providers Care Junk Dealer Name Role Phone Atul Sanz NP Primary Care Provider [phone] Reason for Visit * Reason Onset Date Comments Results 04/26/2025 Encounter Details Date Type Department Care Team ([facility] st Contact Info) Description 04/26/2025 Telephone Gastroenterology - [address] [place] [phone] Chavez Aaron MD [address] [place] [phone] Social History Tobacco Use Types Packs/Day Years [...] of the report , to front office supervisor , possible scan in media but not sure * Kayla Gonzalez - 04/26/2025 9:33 AM EDT Pt had a U/S done on her gallbladder and would like to speak about results and what her next move will be documented in this encounter Plan of Treatment Not on file documented as of this encounter Visit Diagnoses Not on filedocumented in this encounter Care Teams Junk Dealer Relationship Specialty Start Date End Date Atul Sanz NP [address] [facility] [place] PCP - General 06/09/19 documented as of this encounter
--- OUTSIDE RECORDS SUMMARY | 2025-05-31 10:38 | XMS_ITS | Patient Health Record ---
Author Organization [facility] Abdon Wilson Address [address] [facility] Jasbir [place]addadgarrick [place] [address] Care Team Providers Care Solar Photovoltaic Electrician Name Role Phone Atul Conway Primary Care Provider Unav ailable Singh Arenas Unavailable [phone] Allergies Allergen (clinical drug ingredient) Drug/Non Drug [...] W/U Status Risk Notes Problem Essential hypertension (98426391) Essential hypertension (I10) Active confirmed Vital Signs Blood pressure diastolic 80 mm Hg 07/14/2024 Height 5 ft 2 in in 07/14/2024 Blood pressure systolic 120 mm Hg 07/14/2024 Weight 120 lbs 07/14/2024 BMI 21.95 kg/m2 07/14/2024 Procedures Procedure Date Ordered Date Performed Result Body [place] e 9[address]- Debride <25 sq cm 06/05/2024 N/A Encounters Encounter Location Date Provider Diagnosis [facility] [address] 06/05/2024 Singh Arenas Skin ulcer of toe of left foot, limited to breakdown of skin L97.521 and Cellulitis of toe of left foot L03.[facility] [address] 07/14/2024 Singh Arenas Skin ulcer of toe of left foot, limited to breakdown of skin L97.[address] [address] 06/05/2024 Singh Arenas Assessments Encounter Date Diagnosis (ICD Code) Assessment Notes Treatment Notes Treatment Clinical Notes Section Notes 06/05/2024 Cellulitis of toe of left foot (ICD-10 - L03.032) 06/05/2024 Skin ulcer of toe of left foot, limited to breakdown of skin (ICD-10 - L97.521) Response to treatment, improved, unresolved Patient Educated with: WOUND CARE INSTRUCTIONS.p df (WOUND CARE INSTRUCTIONS.p df) 07/14/2024 Skin ulcer of toe of left foot, limited to breakdown of skin (ICD-10 - L97.521) Response to treatment - Improvement 06/05/2024 Other 07/14/2024 Other Plan Of Treatment Pending Test Test Name Order Date X ray : Foot, left 3V 04/14/2024 X ray : Foot, left 3V 05/29/2024 14504- Debride <25 sq cm 06/05/2024 Insurance Providers Payer Name Payer Address Payer Phone Subscriber Number Group Number Insured Name Patient Relationship to Insured Coverage Start Date Coverage End Date Medicare National Govt Sv[employer] [address] [place] [address] [id number] Birgit Wiley Self - patient is the insured EPV SOLAR ([facility]) [address] [place] [address] [id number] Inez Birgit Self - patient is the insured Medical (General) History Medical History History ICD Code Arthritis Knee Pain Cancer Cataracts Diverticulosis Hypertension Reflux ( GERD) thyroid Hypercholesterolemia Surgical History Surgery Date(Month/Year) Breast Surgery 2018 bunionectomy
== END ==
LOC: HO.NUCMED 09:26
PROVIDERS: Visit Provider Nurse Practitioner Family
DX: R10.11 Right upper quadrant pain (principal); R10.13 Epigastric pain; R00.2 Palpitations; F41.9 Anxiety disorder, unspecified; K82.8 Other specified diseases of gallbladder
CPT/HCPCS: 78227; 99212; A9537; J2805

== ENCOUNTER → 2025-05-31 09:28 | Outpatient (BNV) | payer MEDICARE, OTHER, SELFPAY | PROVIDERS: Visit Provider Radiology Diagnostic Radiology | DX: R10.11 Right upper quadrant pain (principal) | CPT/HCPCS: 78227 ==

== ENCOUNTER 2025-05-31 14:23 | Outpatient (AMB) | payer MEDICARE, OTHER, SELFPAY ==
--- NOTE | 2025-05-31 14:38 | A.OFFPC_ITS ---
Vital Signs 05/31/25 14:40 Height 5 ft 2 in Weight 114 lb BMI 20.8 BP 112/62 Blood Pressure Location Lt brachial Position Sitting Respiration 16 Pulse 122 H Pulse Source Pulse Oximeter Temp 97.7 F Temp Source Oral Pulse Oximetry (%) 96 Oxygen Delivery Method Room Air Intake Visit Reasons: 6 Months F/U Allergies Njkfutw-SVH-JvX Reductase Inhibitor Allergy (Mild, Verified 02/16/25 11:16) cannot tolerate Medication List - Last Reconciled 05/31/25 by MELISSA Holland- bergamot extract (Charlevoix Bergamot) 1,000 mg (2 x 500 mg) PO DAILY 30 days buspirone 5 mg PO BID 30 days celecoxib (Celebrex) 200 mg PO DAILY PRN esomeprazole magnesium 20 mg PO DAILY levothyroxine 88 mcg PO QAM lisinopril 20 mg PO DAILY 90 days lorazepam 0.5 mg PO BEDTIME PRN 30 days Tobacco use date assessed: 11/12/24 Dental Screening Dental Screen Date: 11/12/24 HPI 6 Months F/U HPI Details Chief Complaint The patient presents for a follow-up visit for ongoing epigastric pain. History of Present Illness The patient is a 79-year-old female presenting for a follow-up for ongoing epigastric pain. She reports random pains in her right abdomen that radiate transversely and is currently under the care of a director school for [employer]. A HIDA scan revealed severe biliary dyskinesia with a barely functioning gallbladder. The patient is scheduled to see a general surgeon in one week. She also reports experiencing heart flutters and palpitations but denies any active chest pain. The patient also has a history of anxiety. dyslipidemia: cannot tolerate statins, will start citrus bergamot Social History Health Maintenance - Recommended to stay on a low-fat diet. Review of Systems - Cardiovascular: Reports palpitations. Denies chest pain. - Gastrointestinal: Reports ongoing epig astric pain and random pains in the right abdomen that radiate transversely. - Psychiatric: Reports anxiety. does report intermittent nausea. Physical Exam General: Cooperative, healthy appearing, comfortable, no acute distress and well developed Orientation: Patient oriented x3 Limitations: No limitations Head: Normal to inspection Ears: Hearing grossly normal bilaterally Nose: Normal external nose present Face and sinus: Normal facial exam Eyes: Appearance normal, both eyes and all related structures Neck: Normal visual inspection and Yes full ROM Respiratory: Normal respiratory effort and able to speak in complete sentences. Clear to auscultation bilaterally Cardiovascular: Sinus tachycardia at 106. Normal S1 and S2 GI: Normal to inspection. Soft to palpation and nontender, though patient reports random pains mostly to the right abdomen radiating across transverse Skin: No rashes or lesions noted Neuro: Patient oriented x3 Extremities: Normal to inspection Results - HIDA scan: Revealed severe biliary dys kinesia; the gallbladder is barely functioning. - EKG: Benign, demonstrating sinus tachy cardia at 106 bpm. Plan 1. Severe Biliary Dyskinesia The patient presents for follow-up of ongoing epigastric pain. A recent HIDA scan confirmed severe biliary dyskinesia with a poorly functioning gallbladder. The plan includes maintaining a low-fat diet and following up with a general surgeon in one week for further evaluation and management. 2. Palpitations The patient reports heart flutters, and an in-office EKG showed sinus tachycardia at 106 bpm but was otherwise benign. To further evaluate and rule out any underlying arrhythmia, a Holter monitor will be ordered. 3. Anxiety The patient is noted to be very anxious. A prescription for a low-dose benzodiazepine will be provided for as-needed use only. The patient was counseled not to drive while on this medication and to take it only as prescribed. Discussion Notes I discussed that the patient's ongoing epigastric pain is due to severe biliary dyskinesia, confirmed by a HIDA scan showing her gallbladder is barely functioning. I advised her to continue a low-fat diet and explained that she will be seeing a general surgeon in one week for further evaluation, whose recommendations I await. Regarding her symptoms of heart flutters, I explained that her EKG today showed a fast heart rate but was otherwise benign. To ensure there are no other underlying arrhythmias, I will order a Holter monitor. To manage her anxiety, I am prescribing a low-dose benzodiazepine for as-needed use only. I explicitly counseled her that she cannot drive while taking this medication and must only take it as prescribed. Patient Instructions - Continue to follow a low-fat diet. - You have an appointment with a general surgeon in one week. It is important that you attend this visit. - We will be ordering a Holter monitor t o check your heart rhythm. - You have been prescribed a new medicat ion for anxiety. Take this only when you need it. - Do not drive or operate heavy machiner y after taking the anxiety medication. - Only take the medication as directed b y the prescription. [facility] Medical History Biliary dyskinesia Hx of radiation therapy COVID-19 vaccine series completed Arthritis Osteoarthritis DDD (degenerative disc disease) Dyskinesia of gallbladder GERD (gastroesophageal reflux disease) Ductal carcinoma in situ (DCIS) of left breast Dyslipidemia Anxiety Osteopenia HTN (hypertension) Hypothyroid Surgical History Hx of left cataract extraction History of esophagogastroduodenoscopy (EGD) Hx of blepharoplasty Breast cancer History of hammer toe correction Family History Father HTN (hypertension) Mother No problems noted. Social History [facility] Are you a primary manager care to a significant other at home: No Do you presently have visiting nurse or other home services: No Alcohol intake: current Patient Tobacco Use Status: Former Tobacco user Tobacco use type: Cigarette e-Cigarette/Vaping Use: Never Used Second Hand Smoke Exposure: No Advance Directives Date on File: 05/15/21 Current occupational status: retired Cognitive needs: No Hearing needs: No Vision needs: No Questionnaire Thrive Questionnaire Date Thrive assessed: 12/14/24 BAIRON-7 AMB Questionnaire BAIRON-7 Date BAIRON - 7 assessed: 12/14/24 Source: Developed by Drs. Joselito Kline, Gemini Sapp, Alexander Gould and colleagues, with an educational william from [employer]. Physical exam (Primary Care) Vital Signs: Last Vital Signs Temp 97.7 F 05/31/25 14:40 Pulse 122 H 05/31/25 14:40 Resp 16 05/31/25 14:40 BP 112/62 05/31/25 14:40 Pulse Ox 96 05/31/25 14:40 Oxygen Delivery Method Room Air 05/31/25 14:40 BMI result Body Mass Index 20.8 Tobacco/Smoking Status: Tobacco use Status Tobacco use date assessed 11/12/24 05/31/25 14:39 Patient Tobacco Use Status Former Tobacco user 05/31/25 14:39 Tobacco use type Cigarette 05/31/25 14:39 e-Cigarette/Vaping Use Never Used 05/31/25 14:39 Thrive Assessment: Date of Thrive Assessment Date Thrive assessed 12/14/24 05/31/25 14:39 Coding Level of Care Code Est Pt Level 4 (33490) Diagnoses Anxiety F41.9 Biliary dyskinesia K82.8 Palpitations R00.2 Assessment & Plan Assessment & Plan (1) Anxiety: Code(s): F41.9 - Anxiety disorder, unspecified Category: Medical (2) Biliary dyskinesia: Code(s): K82.8 - Other specified diseases of gallbladder Category: Medical (3) Palpitations: Code(s): R00.2 - Palpitations Category: Medical Plan . Orders: Orders ECG 3 day holter monitor Today R00.2 - Palpitations Medications: New bergamot extract (Charlevoix Bergamot) 1,000 mg (2 x 500 mg) PO DAILY 60 caps 3RF 30 days lorazepam cannot drive on med, share med, and only take as prescribed 0.5 mg PO BEDTIME PRN 30 tabs 0RF anxiety 30 days Discontinued rosuvastatin Discontinued Reason: Patient Refused 5 mg PO 3XW 36 tabs 0RF
[2025-05-31 14:40] VITALS: BP 112/62; PULSE 122; RESP 16; TEMP 36.5; O2SAT 96; BMI 20.8
== END 2025-05-31 15:34 | disposition home or self-care (01) ==
LOC: HO.HMCC 14:23
PROVIDERS: PCP Nurse Practitioner Family; Visit Provider Nurse Practitioner Family
DX: F41.9 Anxiety disorder, unspecified (principal); K82.8 Other specified diseases of gallbladder; R00.2 Palpitations

== ENCOUNTER 2025-06-02 13:22 | Outpatient (REF) | payer SELFPAY ==
--- NOTE | 2025-06-02 14:28 | MHC.AU.HA3 ---
Hearing Instrument Follow-Up- Binaural Date of Visit: 06/02/25 Right Ear: Make, Model, Color, Serial Number: Oticon Intent 3 miniRITE-R SN: [id number] Color: Chroma Beige Real Estate Professional Repair Warranty: 03/28/2028 Real Estate Professional Loss and Damage Warranty: 03/28/2028 [facility] Service Plan: OPTED OUT Battery Size: Rechargeable Machining And Assembly Supervisor/Slim Tube: 3/85 Earmold/Dome/CShell/SlimTip:6mm double hannah dome (no retention tail) Type of Wax Guard: miniFit Dispensed By: [facility] Date of Fittin04/06/2025 Left Ear: Make, Model, Color, Serial Number: Oticon Intent 3 miniRITE-R SN: [id number] Color: Chroma Beige Real Estate Professional Repair Warranty: 03/28/2028 Real Estate Professional Loss and Damage Warranty: 03/28/2028 [facility] Service Plan: OPTED OUT Battery Size: Rechargeable Machining And Assembly Supervisor/Slim Tube: 2/85 Earmold/Dome/CShell/SlimTip: 6mm double hannah dome (no retention tail) Type of Wax Guard: miniFit Dispensed By: [facility] Date of Fittin04/06/2025 Follow-Up Summary: Overall noted improvement in ease of comfort/insertion of right TRIPP and sound quality. Did not switch to 5mm open dome, as previously discussed. Retested pure-tones to ensure no change in hearing; Hearing is stable. Reported more balanced sound today. Unclear exactly what caused difference at last appointment. Data logging only 2.5 hours/day. Birgit reported she only wears when she is going out and notices benefit; however, sometimes does not put on until noon or if home alone. Reexplained importance of daily, consistent use. Reinstructed on VC use at Birgit's request. Exchanged SmartCharger for Desktop Power Station Operator. Sent SmartCharger back to [employer] for credit. Birgit confirmed purchase of HAs, marking end of trial period. Recommendations: Hearing instrument follow-up or maintenance as needed. Please contact our clinic with any questions or concerns. Diagnosis Code(s): Primary Diagnosis: H90.3 Bilateral Sensorineural Hearing Loss Signature: Provider: Hugo Best, [facility]
--- OUTSIDE RECORDS SUMMARY | 2025-06-02 16:18 | XMS_ITS | Clinical Summary ---
Author Organization [facility] Address [address] [place] [address] Care Team Providers Care Testing Specialist Name Role Phone LeslySimone Primary Care Provider [phone] Allergies No known active allergies Medications Medication [...] age to complete this topic Care Teams Testing Specialist Relationship Specialty Start Date End Date Simone Grace DO [address] [place] [address] PCP - General 03/25/18
--- OUTSIDE RECORDS SUMMARY | 2025-06-02 16:18 | XMS_ITS | Clinical Summary ---
Author Organization [facility] Address [address] [facility] [address] [place] [address] Phone Care Team Providers Care Distribution Spec Name Role Phone Atul Sanz NP Primary Care Provider + Saniya Waldrop MD Unavailable [phone] Medications multivit with minerals/lutein (MULTIVITAMIN 50 PLUS [...] care doc She thought I was an security compliance specialist She wants to stay with her current PCP - Mr. Sanz at [facility] Immunizations Immunization Administration Dates Next Due INFLUENZA, [...] file Insurance MEDICARE PART A & B [place] [id number] MEDICARE PART A & B [employer] MEDICARE SUPPLEMENT MEDICARE PART A & B [facility] EXTENSION MEDICARE SUPPLEMENT MEDICARE PART A & B [facility] [place] [id number] MEDICARE PART A & B [facility] [place] [id number] MEDICARE PART A & B [place] [id number] MEDICARE PART A & B [facility] EXTENSION MEDICARE SUPPLEMENT MEDICARE PART A & B [employer] MEDICARE SUPPLEMENT MEDICARE PART A & B [employer] MEDICARE SUPPLEMENT Care Teams Distribution Spec Relationship Specialty Start Date End Date Atul Sanz NP [address] [place] [address] [place] [address] PCP - General Family Medicine 06/21/21 Saniya Waldrop MD [address] [place] [address] [place] [address] 06/21/21 Additional Source Comments The information contained in this document represents components of the legal health record. It is not the complete legal health record.[facility]
--- OUTSIDE RECORDS SUMMARY | 2025-06-02 16:19 | XMS_ITS | Clinical Summary ---
Author Organization [facility] Address [address] [place] [address] Phone Care Team Providers Care Elderly Companion Name Role Phone Atul Sanz NP Primary Care Provider Allergies Active Allergy Reactions Criticality Noted Date Comments Aluminized Plastic 10/06/2024 Nickel 08/28/2018 Causes contact allergy Qfphzhq-Cll-Rbm Reductase Inhibitors 10/29/2023 Medications lisinopriL (PRINIVIL,ZESTR IL) [...] nodules and how their size, shape, and meter changes records clerk time affect her level of suspicion for [...] Hospital and we will scan in her [facility]. All questions were answered. Assessment & [...] nodules and how their size, shape, and meter changes records clerk time affect her level of suspicion for [...] Hospital and we will scan in her [place] [facility]. All questions were answered. We also [...] 11:45 AM EDT Consult General Surgery - [place] [address] [facility] [address] [place] [phone] Katheryn Flynn MD Epigastric pain (Primary Dx); Anxiety; Calculus of gallbladder without cholecystitis without obstruction 04/26/2025 Telephone Gastroenterology - 299 [facility] 299 [facility] [address] [place] [phone] Chavez Aaron MD 04/16/2025 1:30 PM EDT Office Visit Pulmonology - [place] 299 [facility] [address] [place] [phone] Daya Ravi MD Pulmonary nodules (Primary Dx) 04/12/2025 10:39 AM EDT - 04/12/2025 11:59 PM EDT Hospital Encounter [facility] CT Scan [address] [place] [phone] Pulmonary nodules Discharge Disposition: Home or Self Care 03/08/2025 11:07 AM EDT - 03/08/2025 11:59 PM EDT [facility]counter [facility] [address] [place] [phone] Encounter for screening mammogram for breast cancer Discharge Disposition: Home or Self Care from Last 3 Months Surgical History Surgery Date Site/Laterality Comments BREAST BIOPSY 02/20/2018 Left PROCEDURE: BX BREAST; PERC NEEDLE CORE W/IMAG GUID; COMMENT: DCIS-high grade BREAST LUMPECTOMY 03/14/2018 Left PROCEDURE: HISTORICAL BREAST LUMPECTOMY; COMMENT: remaining DCIS, ER & PA positive FOOT SURGERY Left PROCEDURE: HISTORICAL FOOT [...] Signed Date: 04/16/2025 15:55 ET Workstation ID: [id number] Transcribed By: Self Edit Transcribed Date: 04/16/2025 [...] Signed Date: 04/16/2025 15:55 ET Workstation ID: [id number] Transcribed By: Self Edit Transcribed Date: 04/16/2025 [...] for biopsy. PQRI CPT II 3342F Code 09215, 72476 PQRI 225 CPT II 7025F TISSUE DENSITY: The breasts are heterogeneously dense, which may obscure small masses. (BI-RADS category C) IMPRESSION: Benign. BI-RADS CATEGORY: 2 - BENIGN RECOMMENDATION: Screening bilateral mammogram is recommended in 1 year. Mammo Location: [facility], [facility], [address] [place] [address] -------- FINAL REPORT -------- Dictated By: Ja Antonio Dictated Date: 03/08/2025 11:36 ET Assigned Physician: Ja Antonio Reviewed and Electronically Signed By: Ja Antonio Signed Date: 03/08/2025 11:43 ET Workstation ID: [id number] Transcribed By: Self Edit Transcribed Date: 03/08/2025 [...] and CC projection is performed in the iwocae 2000-D unit. Computer aided detection utilizing the [...] MLO and CC projection is performed in theNexImmuneographe 2000-D unit. Computer aided detection utilizing the Red Robot Labsystem was utilized. FINDINGS: The breasts are again [...] for biopsy. PQRI CPT II 3342F Code 60414, 62520 PQRI 225 CPT II 7025F TISSUE DENSITY: The breasts are heterogeneously dense, which may obscuresmall masses. (BI-RADS category C) IMPRESSION: Benign. BI-RADS CATEGORY: 2 - BENIGN RECOMMENDATION: Screening bilateral mammogram is recommended in 1 year. Mammo Location: [facility], [facility], [address] [place] [address] -------- FINAL REPORT -------- Dictated By: Ja Antonio Dictated Date: 03/08/2025 11:36 ET Assigned Physician: Ja Antonio Reviewed and Electronically Signed By: Ja Antonio Signed Date: 03/08/2025 11:43 ET Workstation ID: [id number] Transcribed By: Self Edit Transcribed Date: 03/08/2025 11:37 ET us Self Referral Sppl IMG BI PROCEDURES Final Resul t from Last 3 Months Insurance MEDICARE [facility] Care Teams Elderly Companion Relationship Specialty Start Date End Date Atul Sanz NP [address] [facility] [place] Corral[place] PCP - General 06/09/19
--- OUTSIDE RECORDS SUMMARY | 2025-06-02 16:20 | XMS_ITS | Patient Health Record ---
Author Organization [facility] Address [address] [facility] Dontrell randall [place], [place] [address] Care Team Providers Care Diesel Engine Assembler Name Role Phone Atul Conway Primary Care Provider Unav ailable Singh Arenas Unavailable [phone] Allergies Allergen (clinical drug ingredient) Drug/Non Drug Allergy documented on EMR Reaction Allergy Type Onset Date Status Information temporarily unavailable Adhesive Unknown Allergy Active Information temporarily unavailable Latex Unknown Allergy Active Reason For Referral [...] W/U Status Risk Notes Problem Essential hypertension (94504987) Essential hypertension (I10) Active confirmed Vital Signs Blood pressure diastolic 80 mm Hg 07/14/2024 Height 5 ft 2 in in 07/14/2024 Blood pressure systolic 120 mm Hg 07/14/2024 Weight 120 lbs 07/14/2024 BMI 21.95 kg/m2 07/14/2024 Procedures Procedure Date Ordered Date Performed Result Body Sit e 79180- Debride <25 sq cm 06/05/2024 N/A Encounters Encounter Location Date Provider Diagnosis [facility] [address] 06/05/2024 Singh Arenas Skin ulcer of toe of left foot, limited to breakdown of skin L97.521 and [facility]ul[facility] toe of [facility] foot [facility] [address] 07/14/2024 Singh Arenas Skin ulcer of toe of left foot, limited to breakdown of skin L97.521 [facility] [address] 06/05/2024 Singh Arenas Assessments Encounter Date Diagnosis [...] X ray : Foot, left 3V 05/29/2024 18595- Debride <25 sq cm 06/05/2024 Insurance Providers Payer Name Payer Address Payer Phone Subscriber Number Group Number Insured Name Patient Relationship to Insured Coverage Start Date Coverage End Date Medicare National [employer] [address] [place] [address] [id number] Inez Birgit Self - patient is the insured [facility] ([facility]) [address] [place] [address] [phone] [id number] Inez Birgit Self - patient is the insured Medical (General) History Medical History History ICD Code Arthritis Knee Pain Cancer Cataracts Diverticulosis Hypertension Reflux ( GERD) thyroid Hypercholesterolemia Surgical History Surgery Date(Month/Year) Breast Surgery 2018 bunionectomy
== END 2025-06-02 13:23 | disposition home or self-care (01) ==
LOC: HO.HAP 13:22
PROVIDERS: Visit Provider Nurse Practitioner Family
DX: Z13.89 Encounter for screening for other disorder (principal)

== ENCOUNTER → 2025-06-02 14:56 | Outpatient (REF) | payer MEDICARE, OTHER, SELFPAY | LOC: HO.CARD 14:56 | PROVIDERS: PCP Nurse Practitioner Family; Visit Provider Nurse Practitioner Family | DX: R00.2 Palpitations (principal) | CPT/HCPCS: 93242 ==

== ENCOUNTER → 2025-06-02 14:59 | Outpatient (BNV) | payer MEDICARE, OTHER, SELFPAY | PROVIDERS: PCP Nurse Practitioner Family; Visit Provider Internal Medicine | DX: I48.91 Unspecified atrial fibrillation (principal); I49.3 Ventricular premature depolarization | CPT/HCPCS: 93244 ==

== ENCOUNTER 2025-06-07 08:14 | Outpatient (AMB) | payer MEDICARE, OTHER, SELFPAY ==
--- NOTE | 2025-06-07 08:23 | MHC.OFFVIS ---
Vital Signs 06/07/25 08:24 Height 5 ft 2 in Weight 115 lb 8 oz BMI 21.1 Intake Visit Reasons: biliary dyskinesia Intake Note: Patient is seen in office for biliary dyskinesia. Pt c/o: reports RUQ pain, reports fluttering sensation and jittering pain on the RUQ, reports chills and feeling feverish, reports loss of appetite, reports she tries to eat non- fat foods but it makes her feel sick. 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: No Accompanied by: Self / Same As Patient Allergies Tnicwmi-FFT-PqI Reductase Inhibitor Allergy (Mild, Verified 06/07/25 08:35) cannot tolerate Medication List - Last Reconciled 06/07/25 by Atul Galdamez MD bergamot extract (Hubbard Bergamot) 1,000 mg (2 x 500 mg) PO DAILY 30 days buspirone 5 mg PO BID 30 days celecoxib (Celebrex) 200 mg PO DAILY PRN esomeprazole magnesium 20 mg PO DAILY levothyroxine 88 mcg PO QAM lisinopril 20 mg PO DAILY 90 days lorazepam 0.5 mg PO BEDTIME PRN 30 days HPI Comments Details: 79-year-old female patient presenting with abdominal discomfort found to have abnormal gallbladder function. She was known to have cholelithiasis by ultrasound but these were noted to be floating within the gallbladder. She now notes a vibrating sensation and fullness in the upper abdomen mainly in the right side extending across her abdomen. The symptoms seemed to begin in February 2025 but have increased in severity over the past 2-3 weeks. She attempted dietary modifications by avoiding fatty foods but continued to have the abdominal symptoms a HIDA scan revealed a reduced ejection fraction of 7% suggestive of biliary dyskinesia. She presents today to discuss possible cholecystectomy. 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 [facility] Medical History Biliary dyskinesia Hx of radiation therapy COVID-19 vaccine series completed Arthritis Osteoarthritis DDD (degenerative disc disease) Dyskinesia of gallbladder GERD (gastroesophageal reflux disease) Ductal carcinoma in situ (DCIS) of left breast Dyslipidemia Anxiety Osteopenia HTN (hypertension) Hypothyroid Surgical History Hx of left cataract extraction History of esophagogastroduodenoscopy (EGD) Hx of blepharoplasty Breast cancer History of hammer toe correction Family History Father HTN (hypertension) Mother No problems noted. Social History [facility] Are you a primary healthcare administration intern to a significant other at home: No Do you presently have visiting nurse or other home services: No Alcohol intake: current Patient Tobacco Use Status: Former Tobacco user Tobacco use type: Cigarette e-Cigarette/Vaping Use: Never Used Second Hand Smoke Exposure: No Advance Directives Date on File: 05/15/21 Current occupational status: retired Cognitive needs: No Hearing needs: No Vision needs: No Review of Systems Const All systems reviewed & are unremarkable except as noted in HPI and below Physical Exam Vital Signs: BMI result Body Mass Index 21.1 Const General: cooperative and no acute distress Nutritional Appearance: well nourished Orientation/consciousness: patient oriented x3 Limitations: no limitations HEENT Head: Yes normocephalic and Yes atraumatic Ears: hearing grossly normal bilaterally Eyes Other: Sclera nonicteric Resp Effort & Inspection: normal respiratory effort, no audible wheezes, no cough and no respiratory distress Cardio Jugular venous distension: no JVD GI Inspection: Yes normal to inspection Palpation (GI): Soft to palpation, Tenderness to palpation present (GI) in the LLQ and in the RUQ; Kiser's sign negative, no guarding and not rigid Percussion: Yes normal to percussion Auscultation: normal bowel sounds Rectal Exam - Female: deferred Skin Other: Warm, dry, no rash Neuro General: patient oriented x3 Extrem General: Yes no clubbing, cyanosis or edema Assessment & Plan Assessment & Plan (1) Biliary dyskinesia: Code(s): K82.8 - Other specified diseases of gallbladder Category: Medical Plan 79-year-old female patient presenting with complaints of right upper quadrant abdominal discomfort associated with dietary intake found on workup to have biliary dyskinesia with the reduction of her gallbladder ejection fraction. On examination she does have some tenderness in the right upper quadrant with a negative Kiser sign. Reviewed the HIDA scan results in detail with the patient and discussed its implications. We discussed laparoscopic or possible open cholecystectomy as a possible option and after discussion of the procedure, risks, and alternatives, she consents to the surgery. As she lives alone she may require a 24 hour extended recovery. Coding Level of Care Code New Pt Level 4 (59273) Diagnoses Biliary dyskinesia K82.8
[2025-06-07 08:24] VITALS: BMI 21.1
--- OUTSIDE RECORDS SUMMARY | 2025-06-07 08:36 | XMS_ITS | Clinical Summary ---
Author Organization [facility] Address [address] [place] [address] Phone Care Team Providers Care Credit Product Analyst Name Role Phone Atul Sanz NP Primary Care Provider Allergies Active Allergy Reactions Criticality Noted Date Comments Aluminized Plastic 10/06/2024 Nickel 08/28/2018 Causes contact allergy Elzebpp-Iud-Tkl Reductase Inhibitors 10/29/2023 Medications lisinopriL (PRINIVIL,ZESTR IL) [...] nodules and how their size, shape, and tar heat exchanger cleaner time affect her level of suspicion for [...] of the chest in 6 months at [facility] and we will scan in her [facility]. All questions were answered. Assessment & [...] nodules and how their size, shape, and tar heat exchanger cleaner time affect her level of suspicion for [...] of the chest in 3 months at [facility] and we will scan in her [place] [facility]. All questions were answered. We also [...] 11:45 AM EDT Consult General Surgery - [place] 175 [facility] [address] [place] [phone] Katheryn Flynn MD Epigastric pain (Primary Dx); Anxiety; Calculus of gallbladder without cholecystitis without obstruction 04/26/2025 Telephone Gastroenterology - 299 [facility] [address] [facility] [address] [place] [phone] Chavez Aaron MD 04/16/2025 1:30 PM EDT Office Visit Pulmonology - [place] [address] [facility] [address] [place] [phone] Daya Ravi MD Pulmonary nodules (Primary Dx) 04/12/2025 10:39 AM EDT - 04/12/2025 11:59 PM EDT Hospital Encounter [facility] CT Scan [address] [place] [phone] Pulmonary nodules Discharge Disposition: Home or Self Care 03/08/2025 11:07 AM EDT - 03/08/2025 11:59 PM EDT Hospital Encounter [facility] [address] [place] [phone] Encounter for screening mammogram for breast cancer Discharge Disposition: Home or Self Care from Last 3 Months Surgical History Surgery Date Site/Laterality Comments BREAST BIOPSY 02/20/2018 Left PROCEDURE: BX BREAST; PERC NEEDLE CORE W/IMAG GUID; COMMENT: DCIS-high grade BREAST LUMPECTOMY 03/14/2018 Left PROCEDURE: HISTORICAL BREAST LUMPECTOMY; COMMENT: remaining DCIS, ER & [place] positive FOOT SURGERY Left PROCEDURE: HISTORICAL FOOT [...] Signed Date: 04/16/2025 15:55 ET Workstation ID: [id number] Transcribed By: Self Edit Transcribed Date: 04/16/2025 [...] Signed Date: 04/16/2025 15:55 ET Workstation ID: [id number] Transcribed By: Self Edit Transcribed Date: 04/16/2025 [...] for biopsy. PQRI CPT II 3342F Code 01826, 89615 PQRI 225 CPT II 7025F TISSUE DENSITY: The breasts are heterogeneously dense, which may obscure small masses. (BI-RADS category C) IMPRESSION: Benign. BI-RADS CATEGORY: 2 - BENIGN RECOMMENDATION: Screening bilateral mammogram is recommended in 1 year. Mammo Location: [facility], [facility], [address] [place] [address] -------- FINAL REPORT -------- Dictated By: Ja Antonio Dictated Date: 03/08/2025 11:36 ET Assigned Physician: Ja Antonio Reviewed and Electronically Signed By: Ja Antonio Signed Date: 03/08/2025 11:43 ET Workstation ID: [id number] Transcribed By: Self Edit Transcribed Date: 03/08/2025 [...] and CC projection is performed in the Atmaile 2000-D unit. Computer aided detection utilizing the [...] MLO and CC projection is performed in theCahootifyographe 2000-D unit. Computer aided detection utilizing the Ynnovable Designystem was utilized. FINDINGS: The breasts are again [...] for biopsy. PQRI CPT II 3342F Code 16226, 21091 PQRI 225 CPT II 7025F TISSUE DENSITY: The breasts are heterogeneously dense, which may obscuresmall masses. (BI-RADS category C) IMPRESSION: Benign. BI-RADS CATEGORY: 2 - BENIGN RECOMMENDATION: Screening bilateral mammogram is recommended in 1 year. Mammo Location: [facility], [facility], [address] [place] [address] -------- FINAL REPORT -------- Dictated By: Ja Antonio Dictated Date: 03/08/2025 11:36 ET Assigned Physician: Ja Antonio Reviewed and Electronically Signed By: Ja Antonio Signed Date: 03/08/2025 11:43 ET Workstation ID: [id number] Transcribed By: Self Edit Transcribed Date: 03/08/2025 11:37 ET us Self Referral Sppl IMG BI PROCEDURES Final Resul t from Last 3 Months Insurance MEDICARE [facility] Care Teams Credit Product Analyst Relationship Specialty Start Date End Date Atul Sanz NP [address] [facility] [place] Corrales PCP - General 06/09/19
--- OUTSIDE RECORDS SUMMARY | 2025-06-07 08:36 | XMS_ITS | Patient Health Record ---
Author Organization [facility] Address [address] [facility] Jasbir Haddadgarrick [place] [address] Care Team Providers Care In House Cra Name Role Phone Atul Conway Primary Care Provider Unav ailable Singh Arenas Unavailable [phone] Allergies Allergen (clinical drug ingredient) Drug/Non Drug [...] W/U Status Risk Notes Problem Essential hypertension (76168617) Essential hypertension (I10) Active confirmed Vital Signs Blood pressure diastolic 80 mm Hg 07/14/2024 Height 5 ft 2 in in 07/14/2024 Blood pressure systolic 120 mm Hg 07/14/2024 Weight 120 lbs 07/14/2024 BMI 21.95 kg/m2 07/14/2024 Encounters Encounter Location Date Provider Diagnosis [facility] [place] [address] [place] [address] 07/14/2024 Singh Arenas Skin ulcer of toe of left foot, limited to breakdown of skin L97.521 Assessments Encounter Date Diagnosis (ICD Code) Assessment Notes Treatment Notes Treatment Clinical Notes Section Notes 07/14/2024 Skin ulcer of toe of left foot, limited to breakdown of skin (ICD-10 - L97.521) Response to treatment - Improvement 07/14/2024 Other Plan Of Treatment Pending Test Test Name Order Date X ray : Foot, left 3V 04/14/2024 X ray : Foot, left 3V 05/29/2024 62472- Debride <25 sq cm 06/05/2024 Insurance Providers Payer Name Payer Address Payer Phone Subscriber Number Group Number Insured Name Patient Relationship to Insured Coverage Start Date Coverage End Date Medicare [facility] [address] [place] [address] [id number] Birgit Wiley Self - patient is the insured [employer]) [address] [place] [address] [id number] Birgit Wiley Self - patient is the insured Medical (General) History Medical History History ICD Code Arthritis Knee Pain Cancer Cataracts Diverticulosis Hypertension Reflux ( GERD) thyroid Hypercholesterolemia Surgical History Surgery Date(Month/Year) Breast Surgery 2018 bunionectomy
--- OUTSIDE RECORDS SUMMARY | 2025-06-07 08:36 | XMS_ITS | Clinical Summary ---
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 Sanz at [facility] Immunizations Immunization Administration Dates Next Due [...] file Insurance MEDICARE PART A & B [place] [id number] MEDICARE PART A & B [employer] MEDICARE SUPPLEMENT MEDICARE PART A & B [facility] EXTENSION MEDICARE SUPPLEMENT MEDICARE PART A & B [facility] [place] [id number] MEDICARE PART A & B [facility] [place] [id number] MEDICARE PART A & B [place] [id number] MEDICARE PART A & B [employer] MEDICARE SUPPLEMENT MEDICARE PART A & B [place] MEDICARE SUPPLEMENT MEDICARE PART A & B [employer] MEDICARE SUPPLEMENT Care Teams Regulatory Affairs Internship Relationship Specialty Start Date End Date Atul Sanz NP [address] [place] [address] [place] [address] PCP - General Family Medicine 06/21/21 Saniya Waldrop MD [address] [place] [address] [place] [address] 06/21/21 Additional Source Comments The information contained in this document represents components of the legal health record. It is not the complete legal health record.[facility]
--- OUTSIDE RECORDS SUMMARY | 2025-06-07 08:36 | XMS_ITS | Clinical Summary ---
Author Organization [facility] Address [address] [place] [address] Care Team Providers Care Certified First Assistant Name Role Phone LeslySimone Primary Care Provider [phone] Allergies No known active allergies Medications Medication [...] age to complete this topic Care Teams Certified First Assistant Relationship Specialty Start Date End Date Simone Grace DO [address] [place] [id number] PCP - General 03/25/18
== END 2025-06-07 09:05 | disposition home or self-care (01) ==
LOC: HO.HGS 08:15
PROVIDERS: Visit Provider Surgery
DX: K82.8 Other specified diseases of gallbladder (principal)
CPT/HCPCS: 99204

== ENCOUNTER → 2025-06-07 08:14 | Outpatient (BNVA) | payer MEDICARE, OTHER, SELFPAY | PROVIDERS: Visit Provider Surgery | DX: K82.8 Other specified diseases of gallbladder (principal) | CPT/HCPCS: 99202 ==

== ENCOUNTER 2025-06-17 09:56 | Outpatient (AMB) | payer MEDICARE, OTHER, SELFPAY ==
--- NOTE | 2025-06-17 09:58 | A.OFFVIS_ITS ---
Vital Signs 06/17/25 09:59 Height 5 ft 2 in Weight 112 lb 6.972 oz BMI 20.6 BP 110/70 Blood Pressure Location Lt brachial Position Sitting Pulse 68 Intake Visit Reasons: Preop/ Dr Galdamez/ GB surgery- afib on holter Intake Note: Pre-op gallbladder surgery dx afib on holter Type Mapper Required: No Allergies Zwfwzoh-VDB-TjX Reductase Inhibitor Allergy (Mild, Verified 06/07/25 08:35) cannot tolerate Medication List - Last Reconciled 06/17/25 by Parker Jade MD apixaban (Eliquis) 5 mg PO BID 30 days buspirone 5 mg PO BID 30 days diltiazem HCl ER 60 mg PO BID 30 days esomeprazole magnesium 20 mg PO DAILY levothyroxine 88 mcg PO QAM lisinopril 20 mg PO DAILY 90 days lorazepam 0.5 mg PO BEDTIME PRN 30 days HPI Comments Details: Thank you for referring Birgit in cardiology consultation today for preoperative cardiovascular risk stratification recent identification of atrial fibrillation. Patient is anxious 79 year female with strong family history for coronary artery disease in his 70s in his brother as well as her father requiring coronary revascularization, herself getting a diagnose of carotid st enosis although this is not clear, hypertension. Recently she had some symptoms of right upper quadrant bulging and discomfort after eating meals and subsequently diagnose with biliary dyskinesia for which she has seen general surgery and plan to undergo laparoscopic/open cholecystectomy under general anesthesia. However patient also complaining of fluttering sensation in her epigastric area which she was not sure was related to her gallbladder issues but subsequently had a Holter monitor which shows atrial fibrillation with rapid ventricular response with intermittent episodes. T symptoms of fluttering in his epigastrium correlated with atrial fibrillation. She was subsequently started on diltiazem 60 mg b.i.d. as well as Eliquis 5 mg b.i.d. and since then she says she has done very well and has not had any recurrent symptoms of palpitations. She is very anxious overall. When asked her about activity level she is very vague. Said in the past she has been very active and go dancing but recently she over the last couple of years he has not been as active although she does not get much symptoms with activity level. She denies any symptoms of clear exertional angina or shortness of breath at her current activity level. She denies any orthopnea, PND, leg edema. No lightheadedness, syncope. She says since been started on Cardizem her blood pressure has been better control led. [facility] Medical History New onset a-fib Paroxysmal atrial fibrillation Biliary dyskinesia Hx of radiation therapy COVID-19 vaccine series completed Arthritis Osteoarthritis DDD (degenerative disc disease) Dyskinesia of gallbladder GERD (gastroesophageal reflux disease) Ductal carcinoma in situ (DCIS) of left breast Dyslipidemia Anxiety Osteopenia HTN (hypertension) Hypothyroid Surgical History Hx of left cataract extraction History of esophagogastroduodenoscopy (EGD) Hx of blepharoplasty Breast cancer History of hammer toe correction Family History Father HTN (hypertension) CAD (coronary artery disease) Mother No problems noted. Brother CAD (coronary artery disease) Afib Social History Housing: [facility] Are you a primary animal daycare provider to a significant other at home: No Do you presently have visiting nurse or other home services: No Alcohol intake: current Patient Tobacco Use Status: Former Tobacco user Tobacco use type: Cigarette e-Cigarette/Vaping Use: Never Used Second Hand Smoke Exposure: No Advance Directives Date on File: 05/15/21 Current occupational status: retired Cognitive needs: No Hearing needs: No Vision needs: No Review of Systems Const Denies chills, Denies daytime sleepiness, Reports fatigue, Denies fever(s), Denies frequent falls, Reports poor appetite, Denies snoring, Denies stops breathing during sleep, Denies weakness, Denies weight gain and Reports weight loss Eyes Denies loss of vision ENT Denies dizziness and Denies hearing loss Card Denies chest pain, Reports rapid heart rate, Denies claudication, Denies leg edema, Denies lightheadedness, Reports palpitations, Denies dyspnea, Denies dyspnea on exertion and Denies orthopnea Resp Denies cough, Denies excessive phlegm production, Denies dyspnea, Denies dyspnea on exertion, Denies snoring and Denies wheezing GI Reports abdominal pain, Denies hematochezia, Reports change in bowel habits, Denies nausea and Denies vomiting Denies urinary frequency and Denies dysuria Musc Denies arthralgias, Denies muscle weakness and Denies numbness Skin/Breast Denies nail changes and Denies rash Neuro Denies Abnormal speech present, Denies dizziness, Denies frequent falls, Denies loss of vision, Denies memory loss, Denies numbness and Denies weakness Psych Denies depression and Denies memory loss Endo Reports fatigue and Reports palpitations Mika/Lymph Reports easy bruising and Reports other (anemia) Aller/Immun Denies wheezing Physical Exam Vital Signs: Last Vital Signs Pulse 68 06/17/25 09:59 BP 110/70 06/17/25 09:59 BMI result Body Mass Index 20.6 Const General: cooperative, comfortable, no acute distress, alert, awake, Physically active, anxious and well groomed Nutritional Appearance: thin Orientation/consciousness: patient oriented x3 Limitations: no limitations HEENT Head: Yes normocephalic and Yes atraumatic Neck Neck: Yes trachea midline, Yes supple and Yes no JVD Resp Effort & Inspection: normal respiratory effort Auscultation: clear to auscultation bilaterally Cardio Jugular venous distension: no JVD Rate: regular rate Rhythm: regular rhythm Heart sounds: S1 normal heart sound present, S2 normal heart sound present, no click, no gallops, no murmurs and no rubs GI Auscultation: normal bowel sounds Skin General skin exam: no rashes or lesions noted Neuro General: patient oriented x3 and no focal motor deficits Speech: No Abnormal speech present Extrem General: Yes no clubbing, cyanosis or edema Psych Appearance: grossly normal Office Procedures EKG Details: EKGs shows normal sinus rhythm nonspecific T-wave changes 76607-[id number], Complete Assessment & Plan Assessment & Plan (1) Preoperative cardiovascular examination: Code(s): Z01.810 - Encounter for preprocedural cardiovascular examination Category: Medical Plan: Precursor operative cardiovascular risk stratification this elderly woman with multiple risk factors including family history, hypertension, atrial fibrillation as well as hyperlipidemia. Although she currently has no exertional symptoms her exercise capacity he has not at optimal level as is used to be in the past. She had a stress test 4 years ago which she had moderate workload at that point time. I would suggest her to undergo exercise myocardial perfusion imaging to rule out any significant myocardial ischemia that may change the risk associated with general anesthesia and noncardiac surgery. This was discussed with her. Rationale for this was discussed with. Also suggest echocardiogram, see below. If these tests are within normal limits I would suggest that she would be low risk for perioperative cardiovascular morbidity mortality. I would continue all her medications in the perioperative time except for Eliquis which can be held for up to 3 days prior to the surgery with the associated thromboembolic risk. (2) Paroxysmal atrial fibrillation: Code(s): I48.0 - Paroxysmal atrial fibrillation Category: Medical Plan: Patient's recent symptoms of epigastric rapid heart rate fluttering and most suggestive of atrial fibrillation. Her symptoms have improved on Cardizem therapy. Continue rhythm control approach given her symptoms. For now will continue with Cardizem therapy. Avoid antiarrhythmic drug therapy. CHADVASc score of 4-5. Strongly recommend oral anticoagulation therapy for terminal carman to reduce thromboembolic risk. Continue current aggressive blood pressure control. Stress mitigation strategies were discussed. Avoidance of stimulants was discussed. She has reported history of carotid stenosis and given her strong risk for vascular disease should consider statin therapy. Will follow up in the clinic in 3 months time, sooner PRN. Thank you for allowing me to partake in her care Orders: Orders CA echo transthoracic complete Today I48.0 - Paroxysmal atrial fibrillation CA stress test Today Z01.810 - Encounter for preprocedural cardiovascular examination NM cardiolite stress test 2 Weeks R07.9 - Chest pain, unspecified, Z01.810 - Encounter for preprocedural cardiovascular examination Coding Level of Care Code New Pt Level 4 (15528) Complex EM visit Add On G2211 Diagnoses Preoperative cardiovascular examination Z01.810 Paroxysmal atrial fibrillation I48.0 CPT Codes EKG - CPT: 39137-[id number], Complete ([id number])
[2025-06-17 09:59] VITALS: BP 110/70; PULSE 68; BMI 20.6
== END 2025-06-17 10:44 | disposition home or self-care (01) ==
LOC: HO.HCS 09:57
PROVIDERS: PCP Nurse Practitioner Family; Visit Provider Internal Medicine Cardiovascular Disease
DX: I48.0 Paroxysmal atrial fibrillation (principal); Z01.810 Encounter for preprocedural cardiovascular examination
CPT/HCPCS: 93010; 99204; G2211

== ENCOUNTER → 2025-06-17 09:56 | Outpatient (BNVA) | payer MEDICARE, OTHER, SELFPAY | PROVIDERS: PCP Nurse Practitioner Family; Visit Provider Internal Medicine Cardiovascular Disease | DX: Z01.810 Encounter for preprocedural cardiovascular examination (principal); I48.0 Paroxysmal atrial fibrillation; R07.9 Chest pain, unspecified | CPT/HCPCS: 93005; 99202 ==

== ENCOUNTER → 2025-06-21 08:47 | Outpatient (REF) | payer MEDICARE, OTHER, SELFPAY ==
--- NOTE | 2025-06-21 08:54 | CA_ITS ---
Transthoracic Echocardiogram Patient (Last, First, Middle): Birgit Wiley A Gender: Female Date of : 1945 Age: 79 Procedure Date: 06/21/2025 Procedure Type: Transthoracic Echocardiogram Location: OP Height: 157.48 cm Weight: 50.8 kg BSA: 1.49 m2 Heart Rate: bpm BP: 110 / 70 mmHg Tsa Screener: SHELLY Referring MD: Parker Jade MD Symptoms: I48.0 - Paroxysmal atrial fibrillation Study Quality: Adequate ECG Rhythm: Sinus Conclusions: - The left ventricular systolic function is normal. The calculated ejection fraction is 58% by biplane method. - No obvious valvular pathology seen on this study. Findings Left Ventricle Normal left ventricular cavity size. There is normal left ventricular wall thickness. The left ventricular systolic function is normal. The calculated ejection fraction is 58% by biplane method. There is no evidence of regional wall motion abnormalities. Diastolic function is normal for age. Focal hypertrophy of the basal septum. Right Ventricle Normal right ventricular cavity size and systolic function. Atria The left atrium is mildly dilated. The right atrium is normal in size. Aortic Valve There is a normal trileaflet aortic valve. There is mild calcification of the aortic valve. There is no aortic valve stenosis. There is trace (trivial) aortic valve regurgitation. Mitral Valve There is mild mitral annular calcification. There is trace mitral valve regurgitation. There is no mitral valve stenosis. Pulmonic Valve The pulmonic valve is likely normal. Tricuspid Valve Normal tricuspid valve structure. There is trace tricuspid valve regurgitation. There is no evidence of pulmonary hypertension. Great Vessels The asc aorta is normal in size. Small plaque is seen in the sino tubular ridge. Venous The inferior vena cava is normal in size and collapses greater than 50% with inspiration. Pericardium/Pleural There is no evidence of pericardial effusion. Prior Study Comparison No prior study available for comparison. Recommendations, Care & Conclusions No obvious valvular pathology seen on this study. Measurements 2D Linear Measurements IVSd: 0.68 0.6-0.9/0.6-1.0 cm LVIDd: 4.53 3.9-5.3/4.2-5.9 cm LVIDd Index: 3.04 2.4-3.2/2.2-3.1 cm/m2 LVIDs: 3.03 2.0-3.6 cm LVPWd: 0.90 0.7-1.1 cm LA Diam: 3.50 2.7-3.8/3.0-4.0 cm LAIDs Index: 2.35 1.5-2.3 cm/m2 LV Mass: 140.55 67-162/88-224 g LV Mass Index: 94.33 43-95/49-115 g/m2 LVOT Diam: 1.90 3.0+(-)1.3 cm 2D Systolic Function EF 4C: 61.50 >55% EF 2C: 57.50 >55% EF BiP: 58.40 >55% Mitral Valve MV Pk E: 0.82 MV PK A: 0.90 MV Decel Time: 363.00 E/A: 0.90 E'Lateral: 6.62 E'Medial: 3.94 E/E' Med: 20.90 E/E' Lat: 12.40 PHT: 106.00 MVA PHT: 2.08 Decel [place]: 2.27 Aortic Valve AoV Pk Tre: 1.29 AoV Mn Tre: 0.83 AoV VTI: 0.28 AoV Pk Grad: 7.00 Aov Mn Grad: 3.00 KEELY Cont.VTI: 2.38 LVOT LVOT Pk Tre: 1.00 LVOT Mn Tre: 0.61 LVOT VTI: 0.24 LVOT Pk Grad: 4.00 LVOT Mn Grad: 2.00 LVOT Diam: 1.90 LVOT Area: 2.84 Diastolic Function MV Pk E: 0.82 MV Pk A: 0.90 E/A: 0.90 E'Medial: 3.94 E/E' Med: 20.90 E' Laterial: 6.62 E/E' Lat: 12.40 Right Ventricle TAPSE (mm): 22.30 TVS' Tre: 10.90 Tricuspid Valve TR Pk Tre: 2.22 TR Pk Grad: 20.00 RA Press: 3.00 RVSP: 23.00 Great Vessels Aorta Sinus of Valsalva: 3.03 2.0-3.[address] Ridge: 2.35 1.7-3.4 cm Ao Asc: 3.10 2.1-3.4 cm Pulmonary Veins Pulm Vein S/D 1.80 Updated in Other Vendor System with Status of Final Angel Steen MD electronically signed on 06/21/2025 2:02:43 PM with status of Final
--- OUTSIDE RECORDS SUMMARY | 2025-06-21 09:15 | XMS_ITS | Patient Health Record ---
Author Organization [facility] Address [address] [facility] [address] [place] [address] Care Team Providers Care Qi Specialist Name Role Phone Atul Conway Primary Care Provider Unav ailable Singh Arenas Unavailable [phone] Allergies Allergen (clinical drug ingredient) Drug/Non Drug [...] W/U Status Risk Notes Problem Essential hypertension ([id number]) Essential hypertension (I10) Active confirmed Vital Signs Blood pressure diastolic 80 mm Hg 07/14/2024 Height 5 ft 2 in in 07/14/2024 Blood pressure systolic 120 mm Hg 07/14/2024 Weight 120 lbs 07/14/2024 BMI 21.95 kg/m2 07/14/2024 Encounters Encounter Location Date Provider Diagnosis [facility] [place] [address] [place] [address] 07/14/2024 Singh Arenas Skin ulcer of toe [...] X ray : Foot, left 3V 05/29/2024 80709- Debride <25 sq cm 06/05/2024 Insurance Providers Payer Name Payer Address Payer Phone Subscriber Number Group Number Insured Name Patient Relationship to Insured Coverage Start Date Coverage End Date Medicare [facility] [address] [place] [address] [id number] Birgit Wiley Self - patient is the insured [employer] ([employer]) [address] [place] [address] [id number] Birgit Wiley Self - patient is the insured Medical (General) History Medical History History ICD Code Arthritis Knee Pain Cancer Cataracts Diverticulosis Hypertension Reflux ( GERD) thyroid Hypercholesterolemia Surgical History Surgery Date(Month/Year) Breast Surgery 2018 bunionectomy
== END ==
LOC: HO.CARD 08:47
PROVIDERS: PCP Nurse Practitioner Family; Visit Provider Internal Medicine Cardiovascular Disease
DX: I48.0 Paroxysmal atrial fibrillation (principal)
CPT/HCPCS: 93306

== ENCOUNTER → 2025-06-21 08:54 | Outpatient (BNV) | payer MEDICARE, OTHER, SELFPAY | PROVIDERS: PCP Nurse Practitioner Family; Visit Provider Internal Medicine | DX: I48.0 Paroxysmal atrial fibrillation (principal); I42.2 Other hypertrophic cardiomyopathy | CPT/HCPCS: 93306 ==

== ENCOUNTER → 2025-06-23 08:49 | Outpatient (REF) | payer MEDICARE, OTHER, SELFPAY ==
--- NOTE | ~2025-06-23 | NM_ITS ---
EXERCISE MYOCARDIAL PERFUSION STUDY INDICATION: Atrial fibrillation TECHNIQUE: The patient was brought in for an exercise perfusion study on 06/23/2025. Patient performed exercise as per Felix protocol and was injected 25 mCi of sestamibi once target heart rate was achieved. Images were obtained using the SPECT gamma camera interlaced with the gating device. Images were obtained in supine position. Resting perfusion study was performed on 06/28/2025. Patient was administered 25 mCi of sestamibi intravenously at rest. Images were then obtained in supine position. Total DLP 67 mGy-cm. Images were processed with the software and compared side to side in short axis, horizontal long axis and vertical long axis views. Arms by the patients side. FINDINGS: Raw aquisition reviewed. The stress perfusion study showed no significant perfusion abnormality. Both uncorrected as well as CT attenuation corrected images were reviewed. The gated study shows normal LV systolic function with calculated LVEF of 58%. LV cavity is normal in size. The gated study shows normal wall thickening and contraction of segments. Resting study shows no significant perfusion abnormality. Gating at rest reveals normal wall motion with ejection fraction at > 70%. The findings are consistent with no clear reversible or fixed perfusion abnormality. NM/NM cardiolite stress test IMPRESSION: 1. Myocardial perfusion imaging study shows normal myocardial perfusion. 2. Gated LVEF is 58% during stress and > 70% during rest. 3. Transient ischemic dilatation not present. EKG component of the test reported separately. Electronically signed by: Angel Steen MD 06/29/2025 03:51 PM [facility]
--- NOTE | 2025-06-23 08:51 | CA_ITS ---
Acquisition Time: 2025-06-23 09:20:20 Total Exercise Time: 00:05:00 Test Indications: afib Medications: see h&p Protocol: ERENDIRA Max HR: 123 BPM 87% of Pred: 141 BPM Max BP: 156/66 mmHG Max Work Load: 4.8 METS Exercise stress test with exercise 5 mins of Erendira Protocol held at Stage 1 with increased incline to 12%, achieving 88% MPHR, with reports of feeling fatigued, no chest pain, without any arrythmias, with normotensive response to exercise. Without any EKG changes meeting criteria for ischemia. In recovery, pt feeling back to baseline. Nuclear images pending. Test reviewed with Dr. Shaffer. Referred By: Parker Jade Electronically Signed By: Wesley Alcaraz
--- OUTSIDE RECORDS SUMMARY | 2025-06-23 09:18 | XMS_ITS | Patient Health Record ---
Author Organization [facility] Address [address] [facility] [address] [place] [address] Care Team Providers Care Conference Organizer Name Role Phone Atul Conway Primary Care Provider Unav ailable Singh Arenas Unavailable [phone] Allergies Allergen (clinical drug ingredient) Drug/Non Drug [...] W/U Status Risk Notes Problem Essential hypertension ([id number]) Essential hypertension (I10) Active confirmed Vital Signs Blood pressure diastolic 80 mm Hg 07/14/2024 Height 5 ft 2 in in 07/14/2024 Blood pressure systolic 120 mm Hg 07/14/2024 Weight 120 lbs 07/14/2024 BMI 21.95 kg/m2 07/14/2024 Encounters Encounter Location Date Provider Diagnosis [facility] [place] [address] [place] [address] 07/14/2024 Singh Arenas Skin ulcer of toe [...] X ray : Foot, left 3V 05/29/2024 70301- Debride <25 sq cm 06/05/2024 Insurance Providers Payer Name Payer Address Payer Phone Subscriber Number Group Number Insured Name Patient Relationship to Insured Coverage Start Date Coverage End Date Medicare [facility] [address] [facility] [address] [id number] Birgit Wiley Self - patient is the insured [employer] ([employer]) [address] [place] [address] [id number] Birgit Wiley Self - patient is the insured Medical (General) History Medical History History ICD Code Arthritis Knee Pain Cancer Cataracts Diverticulosis Hypertension Reflux ( GERD) thyroid Hypercholesterolemia Surgical History Surgery Date(Month/Year) Breast Surgery 2018 bunionectomy
--- OUTSIDE RECORDS SUMMARY | 2025-06-23 09:18 | XMS_ITS | Clinical Summary ---
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 Sanz at [facility] Immunizations Immunization Administration Dates Next Due [...] file Insurance MEDICARE PART A & B [employer] [place] [id number] MEDICARE PART A & B [employer] MEDICARE SUPPLEMENT MEDICARE PART A & B [facility] EX[employer]ION MEDICARE SUPPLEMENT MEDICARE PART A & B [facility] [place] [place] [phone] MEDICARE PART A & B [facility] [phone] MEDICARE PART A & B [employer] [place] [id number] MEDICARE PART A & B [employer] MEDICARE SUPPLEMENT MEDICARE PART A & B [employer] MEDICARE SUPPLEMENT MEDICARE PART A & B [employer] MEDICARE SUPPLEMENT Care Teams Party Plan Sales Consultant Relationship Specialty Start Date End Date Atul Sanz NP [address] [place] [address] [place] [address] PCP - General Family Medicine 06/21/21 Saniya Waldrop MD [address] [place] [address] [place] [address] 06/21/21 Additional Source Comments The information contained in this document represents components of the legal health record. It is not the complete legal health record.[facility]
--- OUTSIDE RECORDS SUMMARY | 2025-06-23 09:18 | XMS_ITS | Clinical Summary ---
Author Organization [facility] Address [address] [place] [address] Phone Care Team Providers Care School Operations Manager Name Role Phone Atul Sanz NP Primary Care Provider [phone] Allergies Active Allergy Reactions Criticality Noted Date Comments Aluminized Plastic 10/06/2024 Nickel 08/28/2018 Causes contact allergy Njtfzsl-Dqt-Vyc Reductase Inhibitors 10/29/2023 Medications lisinopriL (PRINIVIL,ZESTR IL) [...] and how their size, shape, and change manager time affect her level of suspicion for [...] of the chest in 6 months at [facility] and we will scan in her [facility]. All questions were answered. Assessment & Plan [...] and how their size, shape, and change manager time affect her level of suspicion for [...] of the chest in 3 months at [facility] and we will scan in her [place] imaging. All questions were answered. We also [...] 11:45 AM EDT Consult General Surgery - [place] [address] [facility] [address] [place] [id number] Katheryn Flynn MD Epigastric pain (Primary Dx); Anxiety; Calculus of gallbladder without cholecystitis without obstruction 04/26/2025 Telephone Gastroenterology - [address] [facility] [address] [facility] [address] [place] [phone] Chavez Aaron MD 04/16/2025 1:30 PM EDT Office Visit Pulmonology - [place] [address] [place] [id number] Daya Ravi MD Pulmonary nodules (Primary Dx) 04/12/2025 10:39 AM EDT - 04/12/2025 11:59 PM EDT Hospital Encounter [facility] CT Scan [address] [place] [phone] Pulmonary nodules Discharge Disposition: Home or Self Care from Last 3 Months Surgical History Surgery Date Site/Laterality Comments BREAST BIOPSY 02/20/2018 Left PROCEDURE: BX BREAST; PERC NEEDLE CORE W/IMAG GUID; COMMENT: DCIS-high grade BREAST LUMPECTOMY 03/14/2018 Left PROCEDURE: HISTORICAL BREAST LUMPECTOMY; COMMENT: remaining DCIS, ER & ID positive FOOT SURGERY Left PROCEDURE: HISTORICAL FOOT [...] Routine 04/12/2025 10:56 AM EDT Pulmonary nodules from Last 3 Months [...] Signed Date: 04/16/2025 15:55 ET Workstation ID: [id number] Transcribed By: Self Edit Transcribed Date: 04/16/2025 [...] Signed Date: 04/16/2025 15:55 ET Workstation ID: [id number] Transcribed By: Self Edit Transcribed Date: 04/16/2025 15:51 ET Gary [facility] IM CT PROCEDURES Final Result from Last 3 Months Insurance MEDICARE [employer] Care Teams School Operations Manager Relationship Specialty Start Date End Date Atul Sanz NP [address] [facility] [place] PCP - General 06/09/19
--- OUTSIDE RECORDS SUMMARY | 2025-06-23 09:18 | XMS_ITS | Clinical Summary ---
Author Organization [facility] Address [address] [place] [address] Care Team Providers Care Bottling Room Worker Name Role Phone LeslySimone Primary Care Provider Allergies No known active allergies Medications Medication [...] age to complete this topic Care Teams Bottling Room Worker Relationship Specialty Start Date End Date Simone Grace DO [address] [place] [address] PCP - General 03/25/18
== END ==
LOC: HO.CARD 08:49
PROVIDERS: PCP Nurse Practitioner Family; Visit Provider Internal Medicine Cardiovascular Disease
DX: Z01.810 Encounter for preprocedural cardiovascular examination (principal); R07.9 Chest pain, unspecified
CPT/HCPCS: 78452; 93017; A9500

== ENCOUNTER → 2025-06-23 08:51 | Outpatient (BNV) | payer MEDICARE, OTHER, SELFPAY | PROVIDERS: PCP Nurse Practitioner Family | DX: I48.91 Unspecified atrial fibrillation (principal) | CPT/HCPCS: 78452; 93016; 93018 ==

== ENCOUNTER 2025-07-07 11:38 | Day surgery (SDC) | payer MEDICARE, OTHER, SELFPAY ==
--- OUTSIDE RECORDS SUMMARY | 2025-07-02 18:36 | XMS_ITS | Clinical Summary ---
Author Organization [facility] Address [address] [facility] [address] [place] [id number] Phone Care Team Providers Care Supervisor Scouring Pads Name Role Phone Atul Sanz NP Primary Care Provider + Saniya Waldrop MD Unavailable [phone] Medications multivit with minerals/lutein (MULTIVITAMIN 50 PLUS [...] care doc She thought I was an [facility] She wants to stay with her current PCP - Mr. Sanz at [facility] Immunizations Immunization Administration Dates Next [...] file Insurance MEDICARE PART A & B [place] [id number] MEDICARE PART A & B [employer] MEDICARE SUPPLEMENT MEDICARE PART A & B [facility] EXTENSION MEDICARE SUPPLEMENT MEDICARE PART A & B [facility] [place] [id number] MEDICARE PART A & B [facility] [place] [id number] MEDICARE PART A & B [place] [id number] MEDICARE PART A & B [employer] MEDICARE SUPPLEMENT MEDICARE PART A & B [employer] MEDICARE SUPPLEMENT MEDICARE PART A & B [employer] MEDICARE SUPPLEMENT Care Teams Supervisor Scouring Pads Relationship Specialty Start Date End Date Atul Sanz NP [address] [place] [address] [place] [address] PCP - General Family Medicine 06/21/21 Saniya Waldrop MD [address] [place] [address] [place] [address] 06/21/21 Additional Source Comments The information contained in this document represents components of the legal health record. It is not the complete legal health record.[facility]
--- OUTSIDE RECORDS SUMMARY | 2025-07-02 18:36 | XMS_ITS | Clinical Summary ---
Author Organization [facility] Address [address] [place] [address] Phone Care Team Providers Care Liquefaction Supervisor Name Role Phone Atul Sanz NP Primary Care Provider Allergies Active Allergy Reactions Criticality Noted Date Comments Aluminized Plastic 10/06/2024 Nickel 08/28/2018 Causes contact allergy Lybpwwk-Fnz-Atx Reductase Inhibitors 10/29/2023 Medications lisinopriL (PRINIVIL,ZESTR IL) [...] nodules and how their size, shape, and overweaver time affect her level of suspicion for [...] of the chest in 6 months at [facility] and we will scan in her [facility]. All questions were answered. Assessment & Plan [...] nodules and how their size, shape, and overweaver time affect her level of suspicion for [...] of the chest in 3 months at [facility] and we will scan in her [facility]. All questions were answered. We also [...] 11:45 AM EDT Consult General Surgery - [place] [address] [facility] [phone] Katheryn Flynn MD Epigastric pain (Primary Dx); Anxiety; Calculus of gallbladder without cholecystitis without obstruction 04/26/2025 Telephone Gastroenterology - [address] [facility] [address] [facility] [address] [place] [phone] Chavez Aaron MD 04/16/2025 1:30 PM EDT Office Visit Pulmonology - [place] [phone] Daya Ravi MD Pulmonary nodules (Primary Dx) 04/12/2025 10:39 AM EDT - 04/12/2025 11:59 PM EDT Hospital Encounter [facility] CT Scan [address] [place] [phone] Pulmonary nodules Discharge Disposition: Home or Self [...] Signed Date: 04/16/2025 15:55 ET Workstation ID: [id number] Transcribed By: Self Edit Transcribed Date: 04/16/2025 [...] Signed Date: 04/16/2025 15:55 ET Workstation ID: [id number] Transcribed By: Self Edit Transcribed Date: 04/16/2025 15:51 ET Gary [facility] IM CT PROCEDURES Final Result from Last 3 Months Insurance MEDICARE [employer] Care Teams Liquefaction Supervisor Relationship Specialty Start Date End Date Atul Sanz NP [address] [facility] [place] PCP - General 06/09/19
--- OUTSIDE RECORDS SUMMARY | 2025-07-02 18:36 | XMS_ITS | Clinical Summary ---
Author Organization [facility] Prior to 12/26/[address] [place] [id number] Care Team Providers Care Chief Medical Officer Name Role Phone LeslySimone Primary Care Provider [phone] Allergies No known active allergies Medications Medication [...] of left breast 0 04/08/2018 Age-related osteoporosis wit hout current pathological fracture 04/08/2018 Family History Medical [...] Health Maintenance Due Date Last Done Comments COVID-19 Vaccine (#1) 1950 Pneumococcal Vaccine (1 [...] age to complete this topic Care Teams Chief Medical Officer Relationship Specialty Start Date End Date Simone Grace DO [address] [place] [id number] [facility] - General 03/25/18
--- NOTE | 2025-07-05 10:20 | HO.ANESPROP2 ---
Documented by User: Jess Warren NP 07/06/25 09:54 HPI - Anesthesia Eval Consult details Narrative: 80 yr old female for Cholecystectomy Laparoscopic,possible open Atrial fibrillation: recently diagnosed 05/2025 on holter due to symptoms of palpitations; started on diltiazem, eliquis with reduction of symptoms; Saw [facility] cards 06/17/25, echo & nuclear stress test ordered & completed (*see below); also completed a 3 day holter/patch; deemed low perioperative risk/okay to proceed with surgery based on recent testing per office note/workload message. [facility] Active Problems Active Problems: All Active Problems (Updated 06/23/25 @ 20:09 by Marielena Ferrell [facility]) Paroxysmal atrial fibrillation (Acute) Preoperative cardiovascular examination (Acute) Palpitations (Acute) Biliary dyskinesia (Acute) [place] (hard of hearing) (Acute) Anxiety (Acute) Left knee pain (Acute) Pain of left calf (Acute) Toe abrasion (Acute) Gallbladder polyp (Acute) Vitamin D deficiency (Acute) Multiple pulmonary nodules (Acute) Paratracheal lymphadenopathy (Acute) Abnormal CT of the abdomen (Acute) Elevated liver enzymes (Acute) Leukopenia (Acute) Physical exam (Acute) Epigastric discomfort (Acute) Pre-op evaluation (Acute) Postmenopausal (Acute) Hx of carotid stenosis (Acute) B12 deficiency (Acute) Family history of cardiac disorder (Acute) Pre-op evaluation (Acute) Constipation (Acute) Laryngitis (Acute) Upper respiratory tract infection (Acute) Acute bronchitis (Acute) Thrush (Acute) GERD (gastroesophageal reflux disease) (Acute) Dyslipidemia (Acute) HTN (hypertension) (Acute) Hypothyroid (Acute) Past Medical History Medical History IBS (irritable bowel syndrome) [place] (hard of hearing) Pulmonary nodule New onset a-fib Paroxysmal atrial fibrillation Biliary dyskinesia Hx of radiation therapy Arthritis Osteoarthritis DDD (degenerative disc disease) Dyskinesia of gallbladder GERD (gastroesophageal reflux disease) Ductal carcinoma in situ (DCIS) of left breast Dyslipidemia Anxiety Osteopenia HTN (hypertension) Hypothyroid Family History Family History Father HTN (hypertension) CAD (coronary artery disease) Mother No problems noted. Brother CAD (coronary artery disease) Afib Family history of problems with anesthesia: No Surgical History Surgical History Hx of tonsillectomy H/O colonoscopy History of lumpectomy of left breast Hx of left cataract extraction History of esophagogastroduodenoscopy (EGD) Hx of blepharoplasty History of hammer toe correction History of Problems with Anesthesia: No Social History Social History Housing: [facility] Are you a primary care partner to a significant other at home: No Do you presently have visiting nurse or other home services: No Alcohol intake: current Patient Tobacco Use Status: Former Tobacco user Tobacco use type: Cigarette Years Smoked: 19 e-Cigarette/Vaping Use: Never Used Second Hand Smoke Exposure: No Advance Directives Date on File: 05/15/21 Current occupational status: retired Cognitive needs: No Hearing needs: No Vision needs: No Meds Allergies Allergy/AdvReac Type Severity Reaction Status Date / Time nickel Allergy Mild Rash Verified 07/05/25 12:02 [id number]-JBX-JgW Reductase Allergy Mild cannot Verified 06/07/25 08:35 Inhibitor tolerate Home Medications ?Medication ?Instructions ?Recorded ?Confirmed ?Last Taken ?Type esomeprazole magnesium 20 mg 20 mg PO QAM 07/05/25 07/05/25 Unknown History capsule,delayed release lisinopril 20 mg tablet 20 mg PO QAM 07/05/25 07/05/25 Unknown History Exam Pertinent Lab Results Pertinent Lab Results: Laboratory Tests 05/14/25 08:00 WBC 4.3 L RBC 4.36 Hgb 13.2 Hct 40.9 Plt Count 234 Sodium 143 Potassium 4.3 BUN 14 Creatinine 0.77 Narrative Narrative: ECHO 06/21/25 Conclusions: - The left ventricular systolic function is normal. The calculated ejection fraction is 58% by biplane method. - No obvious valvular pathology seen on this study. Cardiolite Stress Test 06/23/25 IMPRESSION: 1. Myocardial perfusion imaging study shows normal myocardial perfusion. 2. Gated LVEF is 58% during stress and > 70% during rest. 3. Transient ischemic dilatation not present. EKG 06/17/25 NSR, rate 69 Assessment and Plan Final Anesthetic Review Family History of Problems with Anesthesia: No History of Problems with Anesthesia: No Documented by User: Lexus Ray MD 07/07/25 09:42 PMFSH Past Medical History Medical History IBS (irritable bowel syndrome) [place] (hard of hearing) Pulmonary nodule New onset a-fib Paroxysmal atrial fibrillation Biliary dyskinesia Hx of radiation therapy Arthritis Osteoarthritis DDD (degenerative disc disease) Dyskinesia of gallbladder GERD (gastroesophageal reflux disease) Ductal carcinoma in situ (DCIS) of left breast Dyslipidemia Anxiety Osteopenia HTN (hypertension) Hypothyroid Family History Family History Father HTN (hypertension) CAD (coronary artery disease) Mother No problems noted. Brother CAD (coronary artery disease) Afib Surgical History Surgical History Hx of tonsillectomy H/O colonoscopy History of lumpectomy of left breast Hx of left cataract extraction History of esophagogastroduodenoscopy (EGD) Hx of blepharoplasty History of hammer toe correction Social History Social History [facility] Are you a primary care partner to a significant other at home: No Do you presently have visiting nurse or other home services: No Alcohol intake: current Patient Tobacco Use Status: Former Tobacco user Tobacco use type: Cigarette Years Smoked: 19 e-Cigarette/Vaping Use: Never Used Second Hand Smoke Exposure: No Advance Directives Date on File: 05/15/21 Current occupational status: retired Cognitive needs: No Hearing needs: No Vision needs: No Meds Allergies Allergy/AdvReac Type Severity Reaction Status Date / Time nickel Allergy Mild Rash Verified 07/05/25 12:02 [id number]-YJN-WfZ Reductase Allergy Mild cannot Verified 06/07/25 08:35 Inhibitor tolerate Home Medications ?Medication ?Instructions ?Recorded ?Confirmed ?Last Taken ?Type esomeprazole magnesium 20 mg 20 mg PO QAM 07/05/25 07/05/25 Unknown History capsule,delayed release lisinopril 20 mg tablet 20 mg PO QAM 07/05/25 07/05/25 Unknown History Exam Airway Mallampati Class: II TM Dist: <=3cm Neck ROM: Limited Heart: rrr Lungs: cta Assessment and Plan Assessment Anesthesia Assessment: Anesthesia Plan Discussed and Chart Reviewed Final Anesthetic Review NPO: Yes ASA Class: III Final Preanesthetic Review: No Changes in Pt Med Stat, Meds/Allgs Chart Reviewed, Consent Obtained/Reviewed and Anes Risks/Benef Reviewed Patient Risk: Intermediate Procedure Risk: Intermediate Anesthetic Plan Anesthetic Plan: GA and Agree w/ Assess. and Plan Disposition: Standard PACU
[2025-07-05 12:30] VITALS: BMI 21.0
[2025-07-07] VITALS (14 sets, daily range): BP systolic 125–186; BP diastolic 67–98; PULSE 67–88; RESP 12–18; TEMP 36.1–36.9; O2SAT 90–100; BMI 19.4; BMI 22.3
[2025-07-07] MEDS: Lactated Ringers 1,000 ML 100 ML IVCONT (12:44)
--- NOTE | 2025-07-07 13:00 | MHC.SHP ---
Pre-Procedural Eval Section A - 24 Hr Update-Section A only Date of Service: 07/07/25 Changes since office visit: Yes Patient answered all questions; No Cold of Flu in the past 2 weeks, No New Medical Problems and No Changes in Medication The patient has been examined within 24 hours of the surgical procedure. The History & Physical has been completed within 30 days and I have reviewed it.: No Section B - Complete if H&P > 30 days Chief Complaint: Other specified diseases of gallbladder Details of Present Illness: no new complaints Relevant Family History (Specify if Yes): No Relevant Social History: None Present Medications: see Short Stay Collaborative assessment Medical History: No relevant PMH History of Previous Operations: No relevant previous surgery Allergies: Allergies Allergy/AdvReac Type Severity Reaction Status Date / Time nickel Allergy Mild Rash Verified 07/07/25 12:51 Nspywtr-ICL-WgE Reductase Allergy Mild cannot Verified 07/07/25 12:51 Inhibitor tolerate Review of Systems Sugical H&P ROS: Negative: Constitution, Cardiovascular, Respiratory, Neurological, Psychiatric, Hem-Onc, Allergic/Immunologic, Gastrointestinal, Genitourinary, Musculoskeletal, Integumentary, Endocrine and Eyes/Ears/Nose/Throat Exam Surgical H&P Exam: Normal: HEENT, Normal: Heart, Normal: Lungs, Normal: Extremities, Normal: Abdomen, Normal: Skin and Normal: Neurological Plan Diagnosis/Plan: Unchanged I have reviewed the history and physical and performed a pertinent physical examination on my patient. No changes have occurred unless specified. Time Spent With Patient Time: Total time managing care of this patient today ____ minutes.
[2025-07-07] MEDS: cefoTEtan disodium 2 GM VIAL IVPUSH (13:10)
--- NOTE | 2025-07-07 15:38 | PHA.MEDREC ---
Pharmacy Consult ? Medication Reconciliation RN has completed the medication reconciliation, pharmacy reviewed.
[2025-07-07] MEDS: Dextrose 5 % and Lactated Ring 1,000 ML 80 ML IVCONT (17:50)
[2025-07-07] MEDS: 0.9 % Sodium Chloride Flush 3 ML SYRINGE IVFLUSH (17:50)
--- NOTE | 2025-07-07 18:00 | PC.NURSE ---
patient ambulated to the bathroom with stand by assist
[2025-07-07] MEDS: dilTIAZem HCL SR 60 MG CAP.ER.12H PO (20:20)
[2025-07-08 03:18] VITALS: BP 145/66; PULSE 63; RESP 16; TEMP 36.4; O2SAT 95
[2025-07-08] MEDS: Dextrose 5 % and Lactated Ring 1,000 ML 80 ML IVCONT (06:04)
--- NOTE | 2025-07-08 06:57 | P.PNGS_ITS ---
Subjective Subjective Date of Service: 07/08/25 <Caron Briceño - Last Filed: 07/08/25 07:10> 07/08/25 <MAGDIEL Chery Last Filed: 07/08/25 07:58> Interval history: Patient reports no pain currently. She had pain in her R shoulder after surgery that resovled with warm compress. Feels bloated. PO intake. No nausea or vomiting. No BM or flatus. Not OOB yet. Denies fever and chills. <Caron Briceño - Last Filed: 07/08/25 07:10> Physical Exam Vital Signs: Vital Signs: Last Vital Signs Temp 97.6 F 07/08/25 03:18 Pulse 63 07/08/25 03:18 Resp 16 07/08/25 03:18 BP 145/66 H 07/08/25 03:18 Pulse Ox 95 07/08/25 03:18 O2 Del Method Room Air 07/08/25 03:18 O2 Flow Rate 2 07/07/25 15:45 BMI result Body Mass Index 22.3 <Caron Briceño - Last Filed: 07/08/25 07:10> Const: General: healthy appearing, comfortable, no acute distress and anxious <Caron Briceño - Last Filed: 07/08/25 07:10> Orientation/consciousness: patient oriented x3 <Caron Briceño - Last Filed: 07/08/25 07:10> Resp: Effort & Inspection: normal respiratory effort and able to speak in complete sentences <Caron Briceño - Last Filed: 07/08/25 07:10> GI: Other: dressings intact, small amount of staining <MAGDIEL Chery Last Filed: 07/08/25 07:58> Palpation (GI): Soft to palpation, no guarding, not rigid and Other GI palpation findings present (mild tenderness around incision sites) <Caron Briceño - Last Filed: 07/08/25 07:10> Percussion: Yes normal to percussion <Caron Briceño Last Filed: 07/08/25 07:10> Skin: General skin exam: no rashes or lesions noted and no jaundice <MAGDIEL Chery Last Filed: 07/08/25 07:58> Neuro: General: patient oriented x3 <Caron Briceño - Last Filed: 07/08/25 07:10> Objective Data Active Medications Acetaminophen (Acetaminophen 325 Mg Tablet) 650 mg PO QID PRN PRN Reason: headache, temp > 101 Apixaban (Apixaban 5 Mg Tablet) 5 mg PO BID [facility] Buspirone HCl (Buspirone Hcl 5 Mg Tablet) 5 mg PO BID [facility] Last Admin: 07/07/25 20:12 Dose: 5 mg Documented By: ROBEL Calcium Carbonate (Calcium Carbonate 750 Mg Tab.Chew) 750 mg PO Q4H PRN PRN Reason: Heartburn Diltiazem HCl (Diltiazem Hcl Sr 60 Mg Cap.Er.12h) 60 mg PO BID [facility]; Protocol Last Admin: 07/07/25 20:20 Dose: 60 mg Documented By: ROBEL Dextrose/Lactated Ringer's (D5lr) 1,000 mls @ 80 mls/hr IVCONT .[id number] [facility] Last Admin: 07/08/25 06:04 Dose: 80 mls/hr Documented By: ROBEL Levothyroxine Sodium (Levothyroxine Sodium 88 Mcg Tablet) 88 mcg PO DAILY@0600 [facility] Last Admin: 07/08/25 06:04 Dose: 88 mcg Documented By: ROBEL Lisinopril (Lisinopril 20 Mg Tablet) 20 mg PO DAILY [facility]; Protocol Lorazepam (Lorazepam 0.5 Mg Tablet) 0.5 mg PO BEDTIME PRN PRN Reason: Anxiety Magnesium Hydroxide (Milk Of Magnesia 30 Ml Oral.Susp) 30 ml PO DAILY PRN PRN Reason: Constipation Melatonin (Melatonin 3 Mg Tablet) 6 mg PO BEDTIME PRN PRN Reason: Insomnia Morphine Sulfate (Morphine Sulfate 4 Mg/Ml Cartridge) 2 mg IVPUSH Q4H PRN; Protocol PRN Reason: Pain, Severe (Pain Scale 7-10) Ondansetron HCl (Ondansetron Hcl 4 Mg/2 Ml Vial) 4 mg IVPUSH QID PRN PRN Reason: Nausea Oxycodone HCl (Oxycodone Hcl Immed Release 5 Mg Tablet) 5 mg PO Q6H PRN PRN Reason: Pain, Severe (Pain Scale 7-10) Sodium Chloride (0.9 % Sodium Chloride Flush 3 Ml Syringe) 3 ml IVFLUSH QSHIFT [facility] Last Admin: 07/07/25 23:51 Dose: Not Given Documented By: ROBEL Non-Admin Reason: IV Running <Caron Briceño - Last Filed: 07/08/25 07:10> Procedures Date of Service Date of Service: 07/08/25 <Caron Briceño - Last Filed: 07/08/25 07:10> 07/08/25 <Carmella Soria PA-C - Last Filed: 07/08/25 07:58> Progress Note: A&P Assessment and plan (1) S/P laparoscopic cholecystectomy: Status: Acute <Caron Briceño - Last Filed: 07/08/25 07:10> Assessment and Plan: Patient is an 80 y/o F POD1 s/p lap erin for biliary dyskinesia. She is doing well overall. No pain, nausea or vomiting. VSS currently. Had episodes of HTN overnight, now back to baseline on Diltiazem. Tolerating PO intake. No BM or flatus yet. Encouraged continued PO and ambulation. Can start Colace if she continues to have no BM or flatus. Encouraged incentive spirometry. Patient is hemodynamically and clinically stable for discharge. <Caron Briceño - Last Filed: 07/08/25 07:10> Patient is an 80 y/o F POD1 s/p lap erin for biliary dyskinesia. She is doing well overall. No pain, nausea or vomiting. VSS currently. Had episodes of HTN overnight, now back to baseline on Diltiazem. Tolerating PO intake. No BM or flatus yet. Encouraged continued PO and ambulation. Can start Colace if she continues to have no BM or flatus. Encouraged incentive spirometry. Patient is hemodynamically and clinically stable for discharge. POD #1 s/p lap erin, admitted for observation in light of patient's age and living alone. She is doing very well post op. Tolerating diet, OOB to bathroom. Minimal pain. VSS. Abd exam benign with appropriate post op tenderness, dressings intact. Stable for dc to home today with f/u in office in 1 week. Patient comfortable with plan. <Carmella Soria PA-C - Last Filed: 07/08/25 07:58> Time Spent With Patient Time: Total time managing care of this patient today ____ minutes. <Caron Briceño - Last Filed: 07/08/25 07:10> Quality Stroke Does the patient have a stroke diagnosis?: No <Carmella Soria PA-C - Last Filed: 07/08/25 07:58> VTE Prior VTE?: No <Carmella Soria PA-C - Last Filed: 07/08/25 07:58> VTE Risk Level:: Surgical - moderate <Caron Briceño - Last Filed: 07/08/25 07:10> VTE Device Contraindication: N/A - Device Ordered <Caron Briceño - Last Filed: 07/08/25 07:10> VTE Drug Contraindication: N/A - Med Ordered <Caron Briceño - Last Filed: 07/08/25 07:10>
[2025-07-08 07:01] VITALS: BP 118/56; PULSE 67; RESP 16; TEMP 36.7; O2SAT 96
--- NOTE | 2025-07-08 07:57 | HO.POSTANES ---
Post Anesthesia Evaluation Post Anesthesia Evaluation Date of Service: 07/08/25 Vital Signs: Vital Signs Temp Pulse Resp BP Pulse Ox O2 Del Method 07/08/25 07:01 98.1 F 67 16 118/56 L 96 Room Air 07/08/25 03:18 97.6 F 63 16 145/66 H 95 Room Air 07/07/25 23:01 97.3 F 67 16 125/98 H 95 Room Air Anesthesia: General Mental Status: Awake Pain Control: Satisfactory Nausea/Vomiting: None Hydration: Adequate Anesthesia-Related Issues: No Anes. Related Issues
[2025-07-08] MEDS: 0.9 % Sodium Chloride Flush 3 ML SYRINGE IVFLUSH (08:11)
[2025-07-08] MEDS: dilTIAZem HCL SR 60 MG CAP.ER.12H PO (08:11)
--- NOTE | 2025-07-08 08:37 | MHC.CM.PN ---
DP: PT DC WITHOUT BEING SEEN BY CM
--- NOTE | 2025-07-08 09:25 | P.DS_ITS ---
DS: Providers Provider Date of Service: 07/08/25 Date of discharge: 07/08/25 Primary care physician: Atul Sanz [facility] Attending physician on admission: Atul Galdamez Attending physician on discharge: Atul Galdamez DS: Diagnosis Discharge Diagnosis (1) S/P laparoscopic cholecystectomy: Status: Acute DS: Summary Hospital Course Hospital Course: HPI AT ADMISSION: 79-year-old female patient presenting with abdominal discomfort found to have abnormal gallbladder function. She was known to have cholelithiasis by ultrasound but these were noted to be floating within the gallbladder. She now notes a vibrating sensation and fullness in the upper abdomen mainly in the right side extending across her abdomen. The symptoms seemed to begin in February 2025 but have increased in severity over the past 2-3 weeks. She attempted dietary modifications by avoiding fatty foods but continued to have the abdominal symptoms a HIDA scan revealed a reduced ejection fraction of 7% suggestive of biliary dyskinesia. She presents today to discuss possible cholecystectomy. 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 The patient wanted to proceed with laparoscopic cholecystectomy, possible open and presents today for the planned procedure. HOSPITAL COURSE: On 07/07/25, a laparoscopic cholecystectomy was performed by Dr. Galdamez without complication. The patient tolerated the procedure well and was admitted for observation given her age and she lives alone. She had an uncomplicated recovery course. On POD #1, she felt well and was tolerating a solid diet without nausea or vomiting, had good pain control and was ambulating without difficulty. She was hemodynamically stable. Her abdomen was benign with appropriate post op tenderness and clean and intact dressings. She felt ready for discharge. She was discharged to home on 07/08/25 in stable condition. She is to follow up in the office in 1 week. She has colace at home which she was instructed to take twice a day until she starts to move her bowels regularly. Status at Discharge Overall status at discharge: patient is progressing back to baseline Time Attestation Discharge Coordination Time (in mins): 25 Quality: Safe Use of Opioids Does Pt have an Active Cancer Diagnosis on the Problem List?: No Quality: Stroke Does the patient have a stroke diagnosis?: No Physical Exam Vital Signs: Vital Signs: Last Vital Signs Temp 98.1 F 07/08/25 07:01 Pulse 67 07/08/25 07:01 Resp 16 07/08/25 07:01 BP 118/56 L 07/08/25 07:01 Pulse Ox 96 07/08/25 07:01 O2 Del Method Room Air 07/08/25 07:01 O2 Flow Rate 2 07/07/25 15:45 BMI result Body Mass Index 22.3 Const: General: comfortable, no acute distress and alert Orientation/consciousness: patient oriented x3 Resp: Effort & Inspection: normal respiratory effort and able to speak in complete sentences GI: Other: dressings intact abd soft, mild incisional tenderness Palpation (GI): no guarding and not rigid Skin: General skin exam: no rashes or lesions noted and no jaundice Neuro: General: patient oriented x3 and moves all extremities DS: Data Data Completed and Pending Pending studies at discharge: Pending at discharge 07/07/25 13:54 Surgical [PTH] Routine Discharge Plan Discharge Patient Disposition: Home, Self-Care Referrals: Atul Sanz FNP-[facility] [Primary Care Provider, Internal Medicine] - 1 Week Atul Galdamez MD [Physician, General Surgery] - 1 Week Discharge Medications: New oxycodone 5 mg tablet 5 mg PO Q4H PRN (Reason: pain (scale score 7-10)) Qty: 20 0RF Rx Instructions: Partial Fill upon patient request. Continued buspirone 5 mg tablet 5 mg PO BID 30 Days Qty: 60 2RF levothyroxine 88 mcg tablet 88 mcg PO QAM Qty: 90 1RF diltiazem HCl 60 mg capsule,extended release 12 hr 60 mg PO BID 30 Days Qty: 60 2RF Eliquis 5 mg tablet 5 mg PO BID 30 Days Qty: 60 1RF lisinopril 20 mg tablet 20 mg PO QAM esomeprazole magnesium 20 mg capsule,delayed release(DR/EC) 20 mg PO QAM lorazepam 0.5 mg tablet 0.5 mg PO BEDTIME PRN (Reason: anxiety) 30 Days Qty: 30 0RF Rx Instructions: cannot drive on med, share med, and only take as prescribed Discharge Orders: Discharge Order (Routine); Ordered 07/08/25 Ordered By: Carmella Soria Diet: Low fat, low cholesterol Activity on Discharge: No heavy lifting Activity Restrictions/Additional Instructions: If the incision area is tender, you may apply an ice pack for short intervals (No more than 20 minutes on, followed by at least 20 minutes off). Do not apply heat. Do not use creams, lotions, or topical antibiotics. Ok to shower. Remove clear dressings 3 days following your procedure. You have steri strips (small white strips) covering your incision- these will fall off ~1 week. No heavy lifting (>10lbs) or strenuous activity! Take Tylenol Extra-strength 1-2 tabs every 6 hours for the first day, then as needed. Oxycodone every 6-8 hours as needed for pain. Colace 100 mg every day as needed for constipation. Follow up in office with Dr. Galdamez in 1 week. ([phone]) Call Your Doctor If: -Your temperature exceeds 101.5? F -You experience excessive pain or swelling -You have an unexpected reaction to medication -You have excessive bleeding -You experience continued vomiting/nausea -Your incision begins to separate -Your incision shows signs of infection such as increased redness, swelling, excessive pain, drainage (light blood or clear fluid is normal) or heat Print Language: Croatian
--- NOTE | 2025-07-08 14:09 | W.PM.OPN ---
Operative Note Operative Note Date of Service: 07/07/25 Narrative: Preoperative diagnosis: Biliary dyskinesia Postoperative diagnosis: Same Procedure: Laparoscopic cholecystectomy Surgeon: Atul Galdamez MD Senior Business Development Manager: Carmella Soria PA-C; Reece Barrera PA-C Anesthesia: General endotracheal Indications for procedure: 80-year-old female patient presenting with complaints of abdominal pain in the right upper quadrant found to have evidence of biliary dyskinesia presenting now for laparoscopic or possible open cholecystectomy. Operative findings: Dense adhesions to the gallbladder wall suggestive of chronic cholecystitis, small gallstones noted within the gallbladder. Specimen: gallbladder Estimated blood loss: 2 mL Complications: None Procedure details: Patient was brought to the OR and placed in a supine position. After administering general anesthesia the patient's abdomen was prepped with ChloraPrep and draped in a sterile fashion. A surgical time-out was called the consent confirmed. Patient received preoperative antibiotics and Venodyne boots were in place. Local anesthesia consisting of 0.5% Sensorcaine without epinephrine was infiltrated in a periumbilical region. A 5 mm incision was made above the umbilicus in a transverse fashion. The Veress needle was then inserted while elevating abdominal cavity with towel clips. After positive drop test the abdomen was insufflated to a pressure of 15 mm of mercury. The Veress needle was then removed and a 5 mm trocar inserted. The camera was inserted in the abdomen explored. A 12 mm trocar was then placed in the epigastrium. Two 5 mm trocars placed in the right upper quadrant by the medical office assistant. The patient was placed in reverse Trendelenburg positioning and rotated to the left. The gallbladder was grasped with the fundus and retracted cephalad by the medical office assistant. The infundibulum was then grasped and retracted away from the liver bed, also by the medical office assistant. The Dolphin dissected was then used by the surgeon to dissect the peritoneum off the infundibulum to reveal the junction with the cystic duct. Cystic artery was noted slightly medial and posterior to the cystic duct. After obtaining a critical view the cystic duct was doubly clipped and divided. The cystic artery was then doubly clipped and divided. The gallbladder was then dissected off the liver bed using electrocautery with an L hook. Hemostasis was assured all times using the electrocautery. When the gallbladder is completely dissected off the liver bed was placed in an Endo-Catch bag and brought out through the epigastric incision. The gallbladder was sent to pathology for further examination. The abdomen was then re-examined. The liver bed was irrigated and suctioned dry. No bleeding or bile leak could be identified. CO2 was then evacuated and all trocars removed. Fascia was closed at the epigastric incision using a [id number] 0 Polysorb suture. Skin was closed in all incisions using a subcuticular 4 0 Polysorb suture by both the surgeon and medical office assistant. Sterile dressings consisting of Steri-Strips, 2 x 2 gauze, and Tegaderm were then applied. The patient tolerated the procedure well. Sponge instrument and needle counts reported as correct. The patient was transferred to PACU in stable condition.
== END 2025-07-08 10:50 | disposition home or self-care (01) ==
LOC: HO.SSS 11:39 → HO.S3 16:50
PROVIDERS: PCP Nurse Practitioner Family; Visit Provider Surgery
PROC: 0FT44ZZ Resection of Gallbladder, Percutaneous Endoscopic Approach (ICD-10-PCS; CPT 47562; principal; 2025-07-07 14:10)
DX: K80.12 Calculus of gallbladder with acute and chronic cholecystitis without obstruction (principal); K82.8 Other specified diseases of gallbladder; K21.9 Gastro-esophageal reflux disease without esophagitis; I10 Essential (primary) hypertension; E78.5 Hyperlipidemia, unspecified; I48.91 Unspecified atrial fibrillation; E03.9 Hypothyroidism, unspecified; F41.9 Anxiety disorder, unspecified; Z85.3 Personal history of malignant neoplasm of breast; Z92.3 Personal history of irradiation; Z79.01 Long term (current) use of anticoagulants; Z79.899 Other long term (current) drug therapy; Z88.8 Allergy status to other drugs, medicaments and biological substances; Z98.890 Other specified postprocedural states
CPT/HCPCS: 47562; 88304; J0131; J0525; J1100; J2003; J2405; J2704; J3010

== ENCOUNTER → 2025-07-07 11:38 | Outpatient (BNV) | payer MEDICARE, OTHER, SELFPAY | PROVIDERS: PCP Nurse Practitioner Family; Visit Provider Physician Assistant Surgical | DX: K80.10 Calculus of gallbladder with chronic cholecystitis without obstruction (principal); Z90.49 Acquired absence of other specified parts of digestive tract | CPT/HCPCS: 47562; 99024 ==